=== PATIENT | male | born 1945 | race Caucasian/White ===

== ENCOUNTER 2017-02-16 20:41 | Inpatient (IN) | payer MEDICARE, SELFPAY ==
[2017-02-16 20:42] VITALS: BP 104/58; PULSE 85; RESP 18; TEMP 36.4; O2SAT 93; BMI 23.6
[2017-02-16 21:39] VITALS: O2SAT 96
[2017-02-16 22:23] VITALS: BP 103/58; BP 114/57; BP 91/47; PULSE 68; PULSE 72; PULSE 74
[2017-02-16 22:28] LABS: Absolute Lymphocyte Count 2.06 X10^3/ul (0.83-4.51); Absolute Neutrophil Count 3.4 X10^3/uL (2.0-7.7); Basophil# 0.04 X10^3/uL; Basophil% 0.6 % (0-1); Eosinophil# 0.28 X10^3/uL; Eosinophils% 4.4 % (0-5); Hematocrit 19.1 % (40-54); Lymphocyte # 2.06 X10^3/ul (4.0); Lymphocyte % 32.7 % (19-41); Mean Corp Hgb Conc 31.4 g/gl (32-36); Mean Corpuscular Volume 95.5 fL (80-94); Mean Platelet Vol. 7.4 fl (6.2-12.0); Monocyte# 0.51 X10^3/uL; Monocyte% 8.1 % (0-10); Neutrophil # 3.39 X10^3/uL (2.7-7.7); Neutrophil % 53.9 % (47-70); POSITIVE COUNT NO; POSITIVE DIFFERENTIAL NO; POSITIVE MORPHOLOGY NO; Platelet Count 314 K/mm3 (150-450); RBC Distribution Width CV 14.3 % (11.6-14.6); RBC Distribution Width SD 49.4 fl (35.1-43.9); White Blood Count 6.3 K/mm3 (4.4-11.0)
[2017-02-16 22:30] VITALS: PULSE 68; RESP 16; O2SAT 100
[2017-02-16] MEDS: Ipratropium/Albuterol Sulfate 3 ML AMPUL.NEB INHALATION (22:30)
[2017-02-16 22:35] LABS: International Normalized Ratio 1.1; Prothrombin Time (Protime)PT. 14.1 SECONDS (11.7-14.9)
[2017-02-16 22:36] LABS: Partial Thromboplast Time 37.2 Seconds (24.1-36.2)
[2017-02-16 22:40] LABS: Anion Gap 9 (5-15); BUN 17 mg/dL (7-18); BUN/Creat Ratio 12.4 RATIO (10-20); Calcium,Total 7.9 mg/dL (8.5-10.1); Chloride 102 mmol/L (98-107); Creatinine, Serum 1.37 mg/dL (0.70-1.30); EST Glomerular Filtration Rate 55 mL/min (>60); Est Glom Filt Rate - Afr Amer 66 mL/min (>60); Glucose 90 mg/dL (70-110); Potassium 3.8 mmol/L (3.5-5.1); Sodium Level 137 mmol/L (136-145)
--- NOTE | 2017-02-16 23:01 | ED.DCSUM_ITS ---
- ER Visit Summary Date of Service: 02/16/17 Chief Complaint: Anemia History of Present Illness: The patient is a [address] Kurtz and Dr. Enriquez. He was diagnosed with a PE last month and placed on Xarelto. He was seen in the office today and had blood work obtained which shows a hemoglobin of 6. Patient denies any source of bleeding. No diarrhea. No black or bloody stools. He denies any trauma. Reports that approximately a week ago he blew his nose and a blood clot came out. He had then had pink drainage for approximately 15 minutes but no further bleeding. Patient does report that he is mildly short of breath with walking around. He denies any chest pain. He has a chronic cough that is unchanged. Patient reports that he had a colonoscopy approximately [address] Hinds. He reports that he had endoscopy approximately 2 years ago. Physical Examination: Vitals: Stable. Afebrile. General: Well-nourished and well-developed. Head: Normocephalic atraumatic. Neck: Supple, no lymphadenopathy. No JVD. Nontender. Cardiovascular: Regular rate and rhythm. No murmurs. Respiratory: No respiratory distress. Mild wheezing bilaterally with good air movement. Abdominal: Soft, nontender, nondistended, normal bowel sounds. No guarding, rebound, or peritoneal signs. Rectal: Brown stool in the vault. Back: Nontender. Extremities: Nontender, no edema. Skin: Normal color, no rash. Neurologic: Alert and oriented ?3. Cranial nerves II through XII are intact. Normal strength and sensation. Psych: Normal affect. Test Results: CBC is remarkable for hemoglobin of 6 and hematocrit of 19.1. Chem-7 is marked for creatinine 1.37 and calcium 7.9. INR is 1.1. PTT is 37.2. Emergency Department Course and Treatment: Patient had positive orthostatic vital signs. He was treated with albuterol and Atrovent aerosols. He was typed and crossed for 2 units of packed red blood cells. Treatment Plan: The patient will be discussed with the hospitalist and admitted for further evaluation and treatment. Disposition: Admitted in stable condition. Impression: 1. Anemia. 2. Coagulopathy on Xarelto. 3. COPD. This note was generated with [employer] software. It may contain incorrect words, spelling, and punctuation that were not noted in review of the chart prior to signing ED Disposition - Plan for ED Patient: Chief Complaint: Abn Labs Referrals: Mitch Kurtz MD [Primary Care Provider] -
--- NOTE | 2017-02-16 23:09 | ED.RN ---
unable to confirm home medications. took list home with her for the night. requested she bring it back with her in am
[2017-02-16 23:15] VITALS: BP 116/59; PULSE 73; RESP 18; O2SAT 96
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
[2017-02-16 23:39] VITALS: BMI 23.2
[2017-02-16 23:49] VITALS: BP 122/57; PULSE 74; RESP 16; TEMP 36.6; O2SAT 98
--- NOTE | 2017-02-16 23:53 | EKG12_ITS ---
Test Reason : ANEMIA Blood Pressure : / mmHG Vent. Rate : 072 BPM Atrial Rate : 072 BPM P-R Int : 184 ms QRS Dur : 160 ms QT Int : 460 ms P-R-T Axes : 062 037 090 degrees QTc Int : 503 ms Normal sinus rhythm Left bundle branch block Abnormal ECG Confirmed by JESUS CHRISTIANSEN, BESSY ([id number]), video effects editor ES WHITE ([id number] on 03/01/2017 11:22:57 AM Referred By: KENDRICK Confirmed By:BESSY LEE MD
[2017-02-17] VITALS (20 sets, daily range): BP systolic 118–164; BP diastolic 52–90; PULSE 70–95; RESP 16–120; TEMP 36.2–37.2; O2SAT 90–98; BMI 23.2
[2017-02-17] MEDS: 0.9% NaCl Peripheral Flush Adult/Peds IV (00:15)
[2017-02-17] MEDS: Ipratropium/Albuterol Sulfate 3 ML AMPUL.NEB INHALATION (04:30)
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
[2017-02-17] MEDS: 0.9% Normal Saline 1,000 ML 100 ML IV (07:28)
[2017-02-17 08:21] LABS: Absolute Lymphocyte Count 1.69 X10^3/ul (0.83-4.51); Absolute Neutrophil Count 4.4 X10^3/uL (2.0-7.7); Basophil# 0.03 X10^3/uL; Basophil% 0.4 % (0-1); Eosinophil# 0.17 X10^3/uL; Eosinophils% 2.5 % (0-5); Hematocrit 24.2 % (40-54); Hemoglobin 7.9 g/dl (13.0-16.5); Lymphocyte # 1.69 X10^3/ul (4.0); Lymphocyte % 24.4 % (19-41); Mean Corp Hgb Conc 32.6 g/gl (32-36); Mean Corpuscular Hgb 31.6 pg (27.0-32.0); Mean Corpuscular Volume 96.8 fL (80-94); Mean Platelet Vol. 8.1 fl (6.2-12.0); Monocyte# 0.62 X10^3/uL; Neutrophil # 4.39 X10^3/uL (2.7-7.7); Neutrophil % 63.4 % (47-70); Platelet Count 386 K/mm3 (150-450); RBC Distribution Width CV 13.3 % (11.6-14.6); RBC Distribution Width SD 44.4 fl (35.1-43.9); White Blood Count 6.9 K/mm3 (4.4-11.0)
[2017-02-17 08:22] LABS: POSITIVE COUNT NO; POSITIVE DIFFERENTIAL NO; POSITIVE MORPHOLOGY NO
[2017-02-17 08:39] LABS: Anion Gap 7 (5-15); BUN 13 mg/dL (7-18); BUN/Creat Ratio 10.8 RATIO (10-20); Calcium,Total 8.2 mg/dL (8.5-10.1); Chloride 104 mmol/L (98-107); EST Glomerular Filtration Rate 64 mL/min (>60); Est Glom Filt Rate - Afr Amer 77 mL/min (>60); Estimated Creatinine Clearance 70.08 ml/min; Glucose 99 mg/dL (70-110); Potassium 3.8 mmol/L (3.5-5.1); Sodium Level 139 mmol/L (136-145)
[2017-02-17] MEDS: amLODIPine 5 MG Tablet PO (09:13)
--- NOTE | 2017-02-17 11:54 | NURSING ---
This RN called Dr. Kurtz's office and spoke with ANTHONY Huff. Requested for an updated home medication list. Notified that patient was seen in the office yesterday by Igor Strong and that all of his medications were discontinued at that time with the exception of Xarelto 20mg daily. Reviewed with Dr. Kurtz- states no reason-- and needs home meds
--- NOTE | 2017-02-17 12:27 | OP.PCM_ITS ---
Report of Operation Date of Procedure: 02/17/17 Pre-Operative Diagnosis: anemia Post-Operative Diagnosis: normal EGD, no evidence of bleeding from UGI source Surgery/Procedure Performed:: EGD Description of Surgical Findings:: normal esophagus, normal stomach, normal first and second portion of duodenum no source of GI bleeding Type of Anesthesia:: MAC Anesthesiologist: Marlo Caraballo Specimen's removed: none Estimated Blood Loss (mL): none Fluids Replaced: see anesthesia note Description of Procedure: After informed consent was given, the patient was brought to the endoscopy suite. Appropriate time out protocol was followed. He was then placed in the upright sitting position. Appropriate cardiac, blood pressure, and pulse oximetry monitoring was placed. After stable vital signs were noted, the patient was given intravenous conscious sedation. The posterior pharynx was sprayed with lidocaine spray times two and a bite block was placed. The upper endoscope was lubricated and inserted into the patient?s mouth and then carefully placed into the patient?s throat. The patient was asked to swallow and the endoscope was then easily advanced into the patient?s esophagus. The endoscope was further advanced down into the patient?s stomach, then past the pylorus, then past the duodenal bulb and then to the second portion of the duodenum. There were no lesions noted in the duodenum. The endoscope was then retracted back into the stomach. There was retained bile noted in the stomach. A retroflex view of the stomach revealed no evidence of any masses. No ulcers, no strictures, no suspicious lesions were noted. No evidence of bleeding or blood flecks noted. The endoscope was retracted into the esophagus , where any insufflated gas in the stomach was aspirated out. The gastroesophageal junction was grossly normal, patient did have a hiatal hernia. The remainder of the esophagus was normal. The upper endoscope was removed intact. Patient tolerated procedure well. - Complications none noted - Admit VTE Documentation VTE Mechan Device Prophylaxis: SCD's
--- NOTE | 2017-02-17 14:12 | PCM.DC ---
- Discharge Diagnoses Current Active Problems: Current Active and Chronic Problems Acute normocytic severe anemia (Acute) Reason(s) for Visit for Discharge Instructions: anemia (low blood count) You will use the following diet at home:: Regular, Other - resume your usual diet Discharge Activity: Return to Normal Activity, - - usual activity as tolerated Additional Instructions: You were referred to hospital for anemia ( low blood count). You received transfusions (2 units of blood). YOu had upper endoscopy which was normal and did not reveal bleeding. Please take the iron tablet daily as prescribed. Please followup with your primary care physician in 1 - 2 weeks for repeat blood work. Your physician may wish to order further tests for the anemia Allergies/Adverse Reactions: Allergies No Known Allergies Allergy (Verified 02/16/17 20:45) Medications to take at Discharge Amlodipine Besylate 5 mg PO DAILY 09/22/13 Furosemide 10 mg PO DAILY 09/22/13 Lisinopril 20 mg PO BID 09/22/13 Metoprolol Tartrate 50 mg PO DAILY 09/22/13 Albuterol IH (ProAir) [Proair Hfa] 2 puff INHALATION Q4H PRN PRN 01/04/17 Tiotropium [place] [Spiriva 18 MCG] 1 puff INHALATION DAILY 01/04/17 Iron Poly/Vit C [Niferex-150] 150 mg PO DAILYCM #30 cap 02/17/17 Nitroglycerin 0.4 mg SL DAILY 02/17/17 Omeprazole [Prilosec] 20 mg PO BID 02/17/17 Rivaroxaban [Xarelto] 20 mg PO DAILY 02/17/17 The following prescriptions were given: Iron Poly/Vit C [Niferex-150] 150 mg PO DAILYCM #30 cap Primary Care Physician: Mitch Kurtz MD [Primary Care Provider] -
--- NOTE | 2017-02-17 14:15 | PCM.DC.SUM ---
Discharge Date and Diagnosis Date of Admission: 02/16/17 Date of Discharge: 02/17/17 - Primary Discharge Diagnosis Active and Suspected Problems Acute normocytic severe anemia (Acute) - Secondary Discharge Diagnosis Chronic Problems Barretts esophagus (Chronic) History of peptic ulcer disease (Chronic) Pulmonary embolism (Chronic) On Xarelto 20 mg daily Chronic respiratory failure (Chronic) COPD (chronic obstructive pulmonary disease) (Chronic) Hypertension (Chronic) Hospital Course and Treatment Operations: None Procedures: EGD Summary of Care Provided: The patient is a 71 year old M with medical comorbidities of COPD, chronic hypoxemic respiratory failure on chronic home O2, Gamble's esophagus, and history of PE in 01/22 for which he was on Xarelto. The patient was referred to hospital from the office for evaluation of symptomatic severe normocytic anemia, hemoglobin 6. Hemoglobin was 11s -12s, normocytic. He reported prior recent diagnostic CLN with no bleeding source found. He had no GI symptoms and denied hematemesis, hematochezia, melena. There was no clinical evidence of hemolysis. He received 2 units PRBCs with improvement in hemoglobin to 7.9. He underwent EGD which was unrevealing. The patient requested prompt discharge on 02/17/17. He felt improved and felt back to baseline. He was advised to take Niferex 1 tablet daily and counselled to followup with PCP in few weeks for repeat blood work and consideration to additional diagnostic evaluations. Discharge Activity: Return to Normal Activity, - - usual activity as tolerated Home Medications: Medications to take at Discharge Amlodipine Besylate 5 mg PO DAILY 09/22/13 Furosemide 10 mg PO DAILY 09/22/13 Lisinopril 20 mg PO BID 09/22/13 Metoprolol Tartrate 50 mg PO DAILY 09/22/13 Albuterol IH (ProAir) [Proair Hfa] 2 puff INHALATION Q4H PRN PRN 01/04/17 Tiotropium [place] [Spiriva 18 MCG] 1 puff INHALATION DAILY 01/04/17 Iron Poly/Vit C [Niferex-150] 150 mg PO DAILYCM #30 cap 02/17/17 Nitroglycerin 0.4 mg SL DAILY 02/17/17 Omeprazole [Prilosec] 20 mg PO BID 02/17/17 Rivaroxaban [Xarelto] 20 mg PO DAILY 01/12/18 Following Prescrptions Were Given to Patient: Iron Poly/Vit C [Niferex-150] 150 mg PO DAILYCM #30 cap Primary Care Physician: Mitch Kurtz MD [Primary Care Provider] - Meaningful Use Info Meaningful Use Diagnoses (Choose all that apply): None applicable
--- NOTE | 2017-02-17 14:18 | CASEMGMT ---
DC PLAN: Home on dc. No needs identified @ this time. Pardeep BSN RN ACM
--- NOTE | 2017-02-17 14:27 | PCM.PN.HOSP ---
Patient Problems: Active and Suspected Problems Acute normocytic severe anemia (Acute) Subjective: Feels well after EGD. Patient is requesting prompt/early discharge. Objective: Dressed and ready for discharge; wants to get home. Vitals/I&O's: Vital Signs Temp Pulse Resp BP Pulse Ox 97.8 F 95 20 H 153/89 H 92 02/17/17 14:01 02/17/17 14:01 02/17/17 14:01 02/17/17 14:01 02/17/17 14:01 Oxygen Flow Rate 4 Oxygen Delivery Method Nasal Cannula Weight: 190 lb 11.198 oz Body Mass Index (BMI) 23.2 Orthostatic Vital Signs Start: 02/17/17 08:47 Freq: q24h Status: Active Protocol: Activity Type Activity Date Activity User E-Sign Co-Sign Detail Recorded Client Recorded Date Recorded By Document 02/17/17 08:47 VARGAS [id number] 02/17/17 08:51 VARGAS 02/17/17 08:47 Orthostatic Vitals Standing -Blood Pressure (90/60-120/80) 146/78 H -Extremity Use Right Arm -Pulse Rate (60-100) 93 Sitting -Blood Pressure (90/60-120/80) 152/87 H -Extremity Use Right Arm -Pulse Rate (60-100) 78 Lying -Blood Pressure (90/60-120/80) 146/64 H -Extremity Use Right Arm -Pulse Rate (60-100) 83 Intake and Output for Last 24 Hours 02/15/17 02/16/17 02/17/17 23:59 23:59 23:59 Intake Total 2379 / 2379 Balance 2379 / 2379 General: Oriented x3, Cooperative Oral: Moist Mucosa Neck: No JVD Lungs: Rhonchi, - - Chronic Cardiovascular: Regular rate, Regular Rhythm Laboratory Results 02/17/17 08:00: WBC 6.9, RBC 2.50 L, Hgb 7.9 L, Hct 24.2 L, MCV 96.8 H, MCH 31.6, MCHC 32.6, RDW 13.3, RDW Differential 44.4 H, Plt Count 386, MPV 8.1, Immature Gran % (Auto) 0.300, Neut % (Auto) 63.4, Lymph % (Auto) 24.4, [place] % (Auto) 9.0, Eos % (Auto) 2.5, Baso % (Auto) 0.4, Absolute Neuts (auto) 4.4, Absolute Lymphs (auto) 1.69, Total Counted Not Reportable 02/17/17 08:00: Sodium 139, Potassium 3.8, Chloride 104, Carbon Dioxide 28.0, Anion Gap 7, BUN 13, Creatinine 1.20, Estim Creat Clear Calc 70.08, Est GFR (MDRD) Af Amer 77, Est GFR (MDRD) Non-Af 64, BUN/Creatinine Ratio 10.8, Glucose 99, Calcium 8.2 L Current Medications Albuterol/Ipratropium (Duoneb) 3 ml INHALATION Q6H.RT PRN PRN Reason: Shortness of breath Last Admin: 02/17/17 04:30 Dose: 3 ml Amlodipine Besylate (Norvasc) 5 mg PO DAILY KRISTEN Last Admin: 02/17/17 09:13 Dose: 5 mg Sodium Chloride () 1,000 mls @ 100 mls/hr IV .Q10H KRISTEN Last Admin: 02/17/17 07:28 Dose: 100 mls/hr Sodium Chloride () 5 - 30 ml IV UD PRN PRN Reason: SALINE FLUSH Last Admin: 02/17/17 00:15 Dose: 10 ml Assessment/Plan Active and Suspected Problems Acute normocytic severe anemia (Acute) 71-year-old gentleman with history of COPD, chronic hypoxemic respiratory failure, history of PE (acute multiple PE on 01/04/2017) on Xarelto, is referred to the emergency department for treatment of low hemoglobin. The patient had a CBC in the office, was found hemoglobin six and referred to the ER. The patient denied any GI symptoms. A week ago he blew his nose, blood clot, and some pink drainage for about 15 minutes. He reported colonoscopy about 2 months ago which was negative, and an EGD about 2 years ago. Laboratories in the ER revealed INR 1.1, creatinine 1.37, and hemoglobin 6.0, normocytic. He denied any other symptoms to include chest pain, dyspnea, near syncope, syncope, abdominal pain, palpitation, constitutional symptoms. He received 2 units of PRBCs and transfusion with hemoglobin 7.9 and is feeling improved. Creatinine has improved to 1.2. EGD today is unrevealing. The patient is requesting prompt discharge, and since he is feeling improved, this can be arranged. He is advised to take Niferex 1 tablet daily, and to follow-up with his primary care physician in the next 1-2 weeks for repeat blood count and consideration to additional diagnostic studies.
--- NOTE | 2017-02-17 14:31 | PN_ITS ---
Patient Problems: Active and Suspected Problems Acute normocytic severe anemia (Acute) Subjective: Feels well after EGD. Patient is requesting prompt/early discharge. Objective: Dressed and ready for discharge; wants to get home. Vitals/I&O's: Vital Signs Temp Pulse Resp BP Pulse Ox 97.8 F 95 20 H 153/89 H 92 02/17/17 14:01 02/17/17 14:01 02/17/17 14:01 02/17/17 14:01 02/17/17 14:01 Oxygen Flow Rate 4 Oxygen Delivery Method Nasal Cannula Weight: 190 lb 11.198 oz Body Mass Index (BMI) 23.2 Orthostatic Vital Signs Start: 02/17/17 08:47 Freq: q24h Status: Active Protocol: Activity Type Activity Date Activity User E-Sign Co-Sign Detail Recorded Client Recorded Date Recorded By Document 02/17/17 08:47 VARGAS [id number] 02/17/17 08:51 VARGAS 02/17/17 08:47 Orthostatic Vitals Standing -Blood Pressure (90/60-120/80) 146/78 H -Extremity Use Right Arm -Pulse Rate (60-100) 93 Sitting -Blood Pressure (90/60-120/80) 152/87 H -Extremity Use Right Arm -Pulse Rate (60-100) 78 Lying -Blood Pressure (90/60-120/80) 146/64 H -Extremity Use Right Arm -Pulse Rate (60-100) 83 Intake and Output for Last 24 Hours 02/15/17 02/16/17 02/17/17 23:59 23:59 23:59 Intake Total 2379 / 2379 Balance 2379 / 2379 General: Oriented x3, Cooperative Oral: Moist Mucosa Neck: No JVD Lungs: Rhonchi, - - Chronic Cardiovascular: Regular rate, Regular Rhythm Laboratory Results 02/17/17 08:00: WBC 6.9, RBC 2.50 L, Hgb 7.9 L, Hct 24.2 L, MCV 96.8 H, MCH 31.6 , MCHC 32.6, RDW 13.3, RDW Differential 44.4 H, Plt Count 386, MPV 8.1, Immature Gran % (Auto) 0.300, Neut % (Auto) 63.4, Lymph % (Auto) 24.4, [place] % ( Auto) 9.0, Eos % (Auto) 2.5, Baso % (Auto) 0.4, Absolute Neuts (auto) 4.4, Absolute Lymphs (auto) 1.69, Total Counted Not Reportable 02/17/17 08:00: Sodium 139, Potassium 3.8, Chloride 104, Carbon Dioxide 28.0, Anion Gap 7, BUN 13, Creatinine 1.20, Estim Creat Clear Calc 70.08, Est GFR ( MDRD) Af Amer 77, Est GFR (MDRD) Non-Af 64, BUN/Creatinine Ratio 10.8, Glucose 99, Calcium 8.2 L Current Medications Albuterol/Ipratropium (Duoneb) 3 ml INHALATION Q6H.RT PRN PRN Reason: Shortness of breath Last Admin: 02/17/17 04:30 Dose: 3 ml Amlodipine Besylate (Norvasc) 5 mg PO DAILY KRISTEN Last Admin: 02/17/17 09:13 Dose: 5 mg Sodium Chloride () 1,000 mls @ 100 mls/hr IV .Q10H KRISTEN Last Admin: 02/17/17 07:28 Dose: 100 mls/hr Sodium Chloride () 5 - 30 ml IV UD PRN PRN Reason: SALINE FLUSH Last Admin: 02/17/17 00:15 Dose: 10 ml Assessment/Plan Active and Suspected Problems Acute normocytic severe anemia (Acute) 71-year-old gentleman with history of COPD, chronic hypoxemic respiratory failure, history of PE (acute multiple PE on 01/04/2017) on Xarelto, is referred to the emergency department for treatment of low hemoglobin. The patient had a CBC in the office, was found hemoglobin six and referred to the ER. The patient denied any GI symptoms. A week ago he blew his nose, blood clot, and some pink drainage for about 15 minutes. He reported colonoscopy about 2 months ago which was negative, and an EGD about 2 years ago. Laboratories in the ER revealed INR 1.1, creatinine 1.37, and hemoglobin 6.0, normocytic. He denied any other symptoms to include chest pain, dyspnea, near syncope, syncope, abdominal pain, palpitation, constitutional symptoms. He received 2 units of PRBCs and transfusion with hemoglobin 7.9 and is feeling improved. Creatinine has improved to 1.2. EGD today is unrevealing. The patient is requesting prompt discharge, and since he is feeling improved, this can be arranged. He is advised to take Niferex 1 tablet daily, and to follow-up with his primary care physician in the next 1-2 weeks for repeat blood count and consideration to additional diagnostic studies.
--- NOTE | 2017-02-17 14:41 | NURSING ---
Patient d/c'ed at this time- taken down to vehicle with 4L oxygen per home orders. States that his has oxygen in car. States he won't need to drive too far as he lives close to hospital. Denies further questions/ needs. patient educated on new iron prescription and that the doctor requested to stop his evening dose of metoprolol. patient verbalized understanding.
== END 2017-02-17 14:30 | disposition home or self-care (01) | DRG 812 ==
LOC: ED 22:40 → MS2 02-17 06:10
PROVIDERS: Surgery; Admitting Provider Internal Medicine; Emergency Provider Emergency Medicine; Family Provider Family Medicine; PCP Family Medicine; Visit Provider Internal Medicine
PROC: 0DJ08ZZ Inspection of Upper Intestinal Tract, Via Natural or Artificial Opening Endoscopic (ICD-10-PCS; CPT 43235; principal; 2017-02-17 11:55)
DX: D64.9 Anemia, unspecified (principal); J96.11 Chronic respiratory failure with hypoxia; Z99.81 Dependence on supplemental oxygen; J44.9 Chronic obstructive pulmonary disease, unspecified; F17.210 Nicotine dependence, cigarettes, uncomplicated; I10 Essential (primary) hypertension; K44.9 Diaphragmatic hernia without obstruction or gangrene; K22.70 Barrett's esophagus without dysplasia; Z86.711 Personal history of pulmonary embolism; Z87.11 Personal history of peptic ulcer disease; Z79.01 Long term (current) use of anticoagulants; Z79.899 Other long term (current) drug therapy
CPT/HCPCS: 80048; 82274; 85025; 85610; 85730; 86850; 86900; 86920; 93005; 94640; 99284; J7030; J7040; P9016; A4216

== ENCOUNTER 2017-03-03 09:44 | Observation (INO) | payer MEDICARE, SELFPAY ==
[2017-03-03] VITALS (16 sets, daily range): BP systolic 106–155; BP diastolic 59–90; PULSE 69–94; RESP 18–24; TEMP 36.3–36.7; O2SAT 88–99; BMI 23.4; BMI 23.3
[2017-03-03 10:46] LABS: Absolute Lymphocyte Count 2.07 X10^3/ul (0.83-4.51); Absolute Neutrophil Count 3.9 X10^3/uL (2.0-7.7); Basophil# 0.04 X10^3/uL; Basophil% 0.6 % (0-1); Eosinophil# 0.21 X10^3/uL; Eosinophils% 3.1 % (0-5); Hematocrit 19.7 % (40-54); Hemoglobin 6.1 g/dl (13.0-16.5); Lymphocyte # 2.07 X10^3/ul (4.0); Lymphocyte % 30.4 % (19-41); Mean Platelet Vol. 7.8 fl (6.2-12.0); Monocyte# 0.61 X10^3/uL; Monocyte% 8.9 % (0-10); Neutrophil # 3.86 X10^3/uL (2.7-7.7); Neutrophil % 56.6 % (47-70); POSITIVE COUNT NO; POSITIVE DIFFERENTIAL NO; POSITIVE MORPHOLOGY NO; Platelet Count 324 K/mm3 (150-450); RBC Distribution Width CV 16.2 % (11.6-14.6); RBC Distribution Width SD 55.9 fl (35.1-43.9); Red Blood Count 2.03 M/mm3 (4.6-6.2); White Blood Count 6.8 K/mm3 (4.4-11.0)
[2017-03-03 10:53] LABS: Prothrombin Time (Protime)PT. 29.8 SECONDS (11.7-14.9)
[2017-03-03 10:54] LABS: Partial Thromboplast Time 48.9 Seconds (24.1-36.2)
[2017-03-03] MEDS: 0.9% Normal Saline 1,000 ML 1000 ML IV (10:58)
[2017-03-03 11:00] LABS: Anion Gap 6 (5-15); BUN 23 mg/dL (7-18); BUN/Creat Ratio 16.4 RATIO (10-20); Calcium,Total 8.2 mg/dL (8.5-10.1); Chloride 103 mmol/L (98-107); EST Glomerular Filtration Rate 53 mL/min (>60); Est Glom Filt Rate - Afr Amer 64 mL/min (>60); Estimated Creatinine Clearance 60.28 ml/min; Glucose 100 mg/dL (70-110); Potassium 4.4 mmol/L (3.5-5.1); Sodium Level 138 mmol/L (136-145)
--- NOTE | 2017-03-03 11:46 | ED.DCSUM_ITS ---
- ER Visit Summary Date of Service: 03/03/17 Chief Complaint: Anemia History of Present Illness: The patient is a [address] Kurtz. Patient reports few months ago he was diagnosed with PE and placed on Xarelto. Since that time he has had problems with recurrent anemia. He had an endoscopy on February [address] Mares that was normal. A colonoscopy December [address] Hinds that was normal as well. He reports that he had labs in the office that were abnormal and he sent to the emergency department for evaluation. Patient denies any source of bleeding. No bloody noses and no trauma. He does complain of generalized weakness. He denies any chest pain or shortness of breath. Physical Examination: Vitals: Stable. Afebrile. General: Well-nourished and well-developed. Head: Normocephalic atraumatic. Neck: Supple, no lymphadenopathy. No JVD. Nontender. Cardiovascular: Regular rate and rhythm. No murmurs. Respiratory: No respiratory distress. Clear to auscultation bilaterally. Abdominal: Soft, nontender, nondistended, normal bowel sounds. No guarding, rebound, or peritoneal signs. Back: Nontender. Extremities: Nontender, no edema. Skin: Normal color, no rash. Neurologic: Alert and oriented ?3. Cranial nerves II through XII are intact. Normal strength and sensation. Psych: Normal affect. Test Results: CBC is marked for hemoglobin of 6.1. Chem-7 is marked for BUN of 23, creatinine 1.4, calcium 8.2. INR is 3.0. PTT is 48.9. Emergency Department Course and Treatment: Patient had negative metastatic vital signs. He was typed and crossed for 2 units packed red blood cells. Treatment Plan: Patient was discussed with Dr. Ch. He will be admitted to the hospital for further evaluation and treatment. Disposition: Admitted in stable condition. Impression: 1. Anemia. 2. Coagulopathy on Xarelto. This note was generated with [employer] dictation software. It may contain incorrect words, spelling, and punctuation that were not noted in review of the chart prior to signing ED Disposition - Plan for ED Patient: Chief Complaint: Abn Labs Referrals: Mitch Kurtz MD [Primary Care Provider] -
--- NOTE | 2017-03-03 11:51 | NURSING ---
MED SURG OBS ANEMIA MICHELA
--- NOTE | 2017-03-03 12:56 | VDLE_ITS ---
Reason For Study: PE RIGHT LEFT GSV is normal. GSV is normal. CFV is compressible, spontaneous, phasic, CFV is compressible, spontaneous, phasic, competent and demonstrates normal competent, and demonstrates normal augmentation. augmentation. FV is compressible, spontaneous, phasic, FV is compressible, spontaneous, phasic, competent and demonstrates normal competent and demonstrates normal augmentation. augmentation. POP V is compressible, spontaneous, phasic, POP V is compressible, spontaneous, phasic, competent and demonstrates normal competent and demonstrates normal augmentation. augmentation. T/P Trunk is compressible. T/P Trunk is compressible. PTV is compressible. PTV is compressible. RT PerV is compressible. LT PerV is compressible. Procedure Exam performed portable in patient room. The exam was diagnostic. A preliminary report was called and/or faxed to PT's RN & MS2. Interpretation Summary Deep veins of the lower extremities are bilaterally patent and compressible segmentally. There is no evidence of deep vein thrombosis on either side. Valvular competence appears intact within the proximal deep venous systems bilaterally. The greater saphenous veins appear bilaterally patent and compressible segmentally. Ordering Physician: Amilcar Ch Referring Physician: Mitch Kurtz Performed By: Zulema Elias, DINORAH, RVT
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
--- NOTE | 2017-03-03 16:42 | PCM.DC ---
- Discharge Diagnoses Current Active Problems: Current Active and Chronic Problems Anemia associated with acute blood loss (Acute) You will use the following diet at home:: No restrictions Your food should be the consistency of: Regular Your liquids should be the consistency of: Regular/Thin Discharge Activity: Return to Normal Activity Call your doctor if you observe: Fever of 101 or Higher, Shortness of breath, Chest pain, - - blood in stool. lightheadness. fainting. Allergies/Adverse Reactions: Allergies No Known Allergies Allergy (Verified 02/16/17 20:45) Medications to take at Discharge Amlodipine Besylate 5 mg PO DAILY 09/22/13 Furosemide 10 mg PO DAILY 09/22/13 Lisinopril 20 mg PO BID 09/22/13 Metoprolol Tartrate 50 mg PO DAILY 09/22/13 Albuterol IH (ProAir) [Proair Hfa] 2 puff INHALATION Q4H PRN PRN 01/04/17 Tiotropium [place] [Spiriva 18 MCG] 1 puff INHALATION DAILY 01/04/17 Nitroglycerin 0.4 mg SL DAILY 02/17/17 Omeprazole [Prilosec] 20 mg PO BID 02/17/17 Ferrous Sulfate 325 mg PO QHS 03/03/17 Primary Care Physician: Mitch Kurtz MD [Primary Care Provider] - Within 2 Weeks Proposed Discharge Date: 03/03/17
--- NOTE | 2017-03-03 16:43 | PCM.DC.SUM ---
Discharge Date and Diagnosis - Problem List Patient Problems: Active and Suspected Problems Anemia associated with acute blood loss (Acute) Date of Admission: 03/03/17 Date of Discharge: 03/03/17 - Primary Discharge Diagnosis Active and Suspected Problems Anemia associated with acute blood loss (Acute) - Secondary Discharge Diagnosis Chronic Problems Barretts esophagus (Chronic) History of peptic ulcer disease (Chronic) Pulmonary embolism (Chronic) On Xarelto 20 mg daily Chronic respiratory failure (Chronic) COPD (chronic obstructive pulmonary disease) (Chronic) Hypertension (Chronic) Hospital Course and Treatment Operations: None Procedures: None Summary of Care Provided: The patient is a 71 year old M is with abnormal labs. Patient had hemoglobin is 6.1. Patient was not having no other symptoms. Patient was admitted earlier this month for similar situation where his hemoglobin at that time was 6. Patient underwent an EGD that was normal. Patient had a colonoscopy 2 months prior which was reportedly normal. Concern is that patient may be losing his blood somewhere in between his upper and lower GI system. But this really being on Xarelto is certainly exaggerating that. I did check a duplex of his lower extremities to ensure that there are no DVTs given patient's recent diagnosis of a pulmonary emboli. The duplex was negative. I feel that the risks of anticoagulation outweigh the benefits and therefore recommend patient hold off on Xarelto until we can ensure that his hemoglobin is stable and if any additional endoscopy or capsule studies or push enteroscopy would be necessary. The patient will be discharged today but he is instructed to have his hemoglobin checked in 1 and 2 weeks. Patient instructed that if he starts getting chest pain shortness of breath fainting to come back to the emergency room or if he notes blood in his stool as well. Expressed understanding and stated that he will comply. And the fact that patient has no DVT I do not feel that an IVC filter is necessary. It was diagnosed that the patient had a provoked pulmonary emboli earlier this month due to immobility. Patient stated that he was active but nonetheless I feel that anticoagulation should be held for the time being. Patient does have an appointment with a Dr. Raygoza this coming Monday. I am unsure if that is on technical support intern or not but patient will follow up. He did receive 2 units of packed red blood cells during this admission and has tolerated that well. [] Discharge Diet: No Restrictions Discharge Activity: Return to Normal Activity Call your doctor if you observe: Fever of 101 or Higher, Shortness of breath, Chest pain, - - blood in stool. lightheadness. fainting. Home Medications: Medications to take at Discharge Amlodipine Besylate 5 mg PO DAILY 09/22/13 Furosemide 10 mg PO DAILY 09/22/13 Lisinopril 20 mg PO BID 09/22/13 Metoprolol Tartrate 50 mg PO DAILY 09/22/13 Albuterol IH (ProAir) [Proair Hfa] 2 puff INHALATION Q4H PRN PRN 01/04/17 Tiotropium [place] [Spiriva 18 MCG] 1 puff INHALATION DAILY 01/04/17 Nitroglycerin 0.4 mg SL DAILY 02/17/17 Omeprazole [Prilosec] 20 mg PO BID 02/17/17 Ferrous Sulfate 325 mg PO QHS 03/03/17 Primary Care Physician: Mitch Kurtz MD [Primary Care Provider] - Within 2 Weeks Disposition: Home Minutes spent on discharge:: 32 Patient Condition:: Good Meaningful Use Info Meaningful Use Diagnoses (Choose all that apply): None applicable Code Visit OBSV E&M: 93876 Observ/hosp same date L3 - disregard the earlier coding
--- NOTE | 2017-03-03 16:48 | DS.PCM_ITS ---
Discharge Date and Diagnosis - Problem List Patient Problems: Active and Suspected Problems Anemia associated with acute blood loss (Acute) Date of Admission: 03/03/17 Date of Discharge: 03/03/17 - Primary Discharge Diagnosis Active and Suspected Problems Anemia associated with acute blood loss (Acute) - Secondary Discharge Diagnosis Chronic Problems Barretts esophagus (Chronic) History of peptic ulcer disease (Chronic) Pulmonary embolism (Chronic) On Xarelto 20 mg daily Chronic respiratory failure (Chronic) COPD (chronic obstructive pulmonary disease) (Chronic) Hypertension (Chronic) Hospital Course and Treatment Operations: None Procedures: None Summary of Care Provided: The patient is a 71 year old M is with abnormal labs. Patient had hemoglobin is 6.1. Patient was not having no other symptoms. Patient was admitted earlier this month for similar situation where his hemoglobin at that time was 6. Patient underwent an EGD that was normal. Patient had a colonoscopy 2 months prior which was reportedly normal. Concern is that patient may be losing his blood somewhere in between his upper and lower GI system. But this really being on Xarelto is certainly exaggerating that. I did check a duplex of his lower extremities to ensure that there are no DVTs given patient's recent diagnosis of a pulmonary emboli. The duplex was negative. I feel that the risks of anticoagulation outweigh the benefits and therefore recommend patient hold off on Xarelto until we can ensure that his hemoglobin is stable and if any additional endoscopy or capsule studies or push enteroscopy would be necessary. The patient will be discharged today but he is instructed to have his hemoglobin checked in 1 and 2 weeks. Patient instructed that if he starts getting chest pain shortness of breath fainting to come back to the emergency room or if he notes blood in his stool as well. Expressed understanding and stated that he will comply. And the fact that patient has no DVT I do not feel that an IVC filter is necessary. It was diagnosed that the patient had a provoked pulmonary emboli earlier this month due to immobility. Patient stated that he was active but nonetheless I feel that anticoagulation should be held for the time being. Patient does have an appointment with a Dr. Raygoza this coming Monday. I am unsure if that is on sr. social media & mobile manager or not but patient will follow up. He did receive 2 units of packed red blood cells during this admission and has tolerated that well. [] Discharge Diet: No Restrictions Discharge Activity: Return to Normal Activity Call your doctor if you observe: Fever of 101 or Higher, Shortness of breath, Chest pain, - - blood in stool. lightheadness. fainting. Home Medications: Medications to take at Discharge Amlodipine Besylate 5 mg PO DAILY 09/22/13 Furosemide 10 mg PO DAILY 09/22/13 Lisinopril 20 mg PO BID 09/22/13 Metoprolol Tartrate 50 mg PO DAILY 09/22/13 Albuterol IH (ProAir) [Proair Hfa] 2 puff INHALATION Q4H PRN PRN 01/04/17 Tiotropium [place] [Spiriva 18 MCG] 1 puff INHALATION DAILY 01/04/17 Nitroglycerin 0.4 mg SL DAILY 02/17/17 Omeprazole [Prilosec] 20 mg PO BID 02/17/17 Ferrous Sulfate 325 mg PO QHS 03/03/17 Primary Care Physician: Mitch Kurtz MD [Primary Care Provider] - Within 2 Weeks Disposition: Home Minutes spent on discharge:: 32 Patient Condition:: Good Meaningful Use Info Meaningful Use Diagnoses (Choose all that apply): None applicable Code Visit OBSV E&M: 92235 Observ/hosp same date L3 - disregard the earlier coding
== END 2017-03-03 18:45 | disposition home or self-care (01) ==
LOC: ED 11:54 → MS2 12:17
PROVIDERS: Emergency Provider Emergency Medicine; Family Provider Family Medicine; PCP Family Medicine
DX: D62 Acute posthemorrhagic anemia (principal); K22.70 Barrett's esophagus without dysplasia; J44.9 Chronic obstructive pulmonary disease, unspecified; J96.10 Chronic respiratory failure, unspecified whether with hypoxia or hypercapnia; I10 Essential (primary) hypertension; I26.99 Other pulmonary embolism without acute cor pulmonale; F17.200 Nicotine dependence, unspecified, uncomplicated; D68.32 Hemorrhagic disorder due to extrinsic circulating anticoagulants; T45.515A Adverse effect of anticoagulants, initial encounter; Z79.01 Long term (current) use of anticoagulants; Z87.11 Personal history of peptic ulcer disease; Z79.899 Other long term (current) drug therapy; Z79.811 Long term (current) use of aromatase inhibitors
CPT/HCPCS: 80048; 85025; 85610; 85730; 86850; 86900; 86920; 93970; 97802; 99285; J7030; J7040; P9016; A4216

== ENCOUNTER → 2017-06-09 08:45 | Outpatient (CLI) | payer MEDICARE, SELFPAY ==
[2017-06-09] VITALS (8 sets, daily range): BP systolic 114–153; BP diastolic 69–85; PULSE 68–72; RESP 18–22; TEMP 36.4–36.9; O2SAT 92–94; BMI 23.6
== END ==
PROVIDERS: Family Provider Family Medicine; PCP Family Medicine; Visit Provider Internal Medicine Hematology & Oncology
DX: Z51.89 Encounter for other specified aftercare (principal); D50.0 Iron deficiency anemia secondary to blood loss (chronic)
CPT/HCPCS: 36430; 86850; 86900; 86920; 86922; J7040; P9016; A4216

== ENCOUNTER 2017-07-31 19:08 | Emergency (ER) | payer MEDICARE, SELFPAY ==
[2017-07-31 19:09] VITALS: BP 134/77; PULSE 95; RESP 20; TEMP 36.7; O2SAT 92; BMI 23.1
[2017-07-31 20:39] LABS: Bacteria 0 SEEN /hpf (None Seen); Mucous, Urine 0 SEEN /hpf (<or=2+); Red Blood Cells-Urine 0 SEEN /hpf (0-5); Squamous Epithelial Cells - UA 0 SEEN /hpf (0-5); White Blood Cells 0 SEEN /hpf (0-5)
[2017-07-31 20:45] LABS: Color, Urine Yellow (Yellow); Glucose, Dipstick Normal (Normal); Ketone-Dipstick Negative (Negative); Leukocyte Esterase-Dipstick 25 /ul (Negative); Nitrite-Dipstick Negative (Negative); Occult Blood-Urine Negative /ul (Negative); Protein-Dipstick 30 mg/dl (Negative); Specific Gravity, Urine 1.015 (1.002-1.030); Urine Bilirubin Dipstick Negative (Negative); Urine Clarity Clear (Clear); Urine Urobilinogen 4 mg/dl (Normal)
[2017-07-31 22:27] VITALS: BP 153/88; PULSE 84; RESP 16; O2SAT 96
--- NOTE | 2017-07-31 22:48 | EKG12_ITS ---
Test Reason : FLANK PAIN Blood Pressure : / mmHG Vent. Rate : 081 BPM Atrial Rate : 081 BPM P-R Int : 186 ms QRS Dur : 162 ms QT Int : 426 ms P-R-T Axes : 045 000 078 degrees QTc Int : 494 ms Normal sinus rhythm Left bundle branch block Abnormal ECG Confirmed by KAREN CHRISTIANSEN, AMBER ([id number]), script editor VAUGHN CONN ([id number] on 08/03/2017 4:28:57 PM Referred By: ALEN Confirmed By:AMBER JONES MD
--- NOTE | 2017-07-31 22:48 | CT_ITS ---
STUDY: CT ABDOMEN AND PELVIS WITHOUT CONTRAST REASON FOR EXAM: Male, 72 years old. Right-sided abdominal pain. RADIATION DOSAGE (If Supplied By Facility): CTDIvol = ( 8.67 ) mGy, DLP = ( 443.93 ) mGycm TECHNIQUE: Transaxial images were obtained from the dome of the diaphragm to the symphysis pubis without oral contrast, and without intravenous contrast. Sagittal and coronal images were reconstructed. Individualized dose optimization techniques were used for this CT. COMPARISON: November 24, 2009 FINDINGS: There are emphysematous changes at the lung bases. There are coronary artery calcifications present. Please note the lack of intravenous contrast limits evaluation of solid visceral organs. Normal liver. Normal gallbladder and extrahepatic biliary system. Normal spleen. Normal pancreas. Normal bilateral adrenal glands. There is a simple exophytic right renal cyst. There is increased to small to characterize high attenuation focus within the left kidney. There is a small hiatal hernia present. There are prominent fluid-filled loops of small bowel within the pelvis. There is a right inguinal hernia that contains a prominent afferent loop and a collapsed efferent loop. There is a segment of terminal ileum that extends into an additional right inguinal hernia as well. The appendix is visualized and appears normal. There is diffuse atherosclerotic calcification of the abdominal aorta, without a demonstrated aneurysm. Normal inferior vena cava. Normal retroperitoneum. Normal urinary bladder. There are diffuse degenerative changes of the visualized lumbar spine. CT/Abdomen/Pelvis without Cont IMPRESSION: Prominent fluid-filled loops of small bowel within the pelvis with an appearance suggestive of an underlying evolving partial small bowel obstruction secondary to a right inguinal hernia. Atherosclerosis. Hiatal hernia. Electronically Signed: Monica Trevino MD at 23:54 EDT Tel , Service support ,
--- NOTE | 2017-07-31 22:53 | ED.DCSUM_ITS ---
- ER Visit Summary Date of Service: 07/31/17 Chief Complaint: [Right flank pain.] History of Present Illness: The patient is a 72 M [who presents the emergency department with right flank pain. He states it radiates up from his posterior hip up his back on the right side. Been going on since he had a bone marrow biopsy a month ago but since Monday it has been much worse. He feels like his skin is on fire on his right flank. He has been slightly more short of breath. He has had symmetric increased lower extremity edema. He is supposed to be on home O2 but does not wear it. He is coughing up yellow sputum but states this is more of a chronic problem for him. No fevers or weakness. When he moves he gets severe pain in his flank. He can be walking and it hit some and take some down. Physical Examination: [] WN WD NAD PERRL EOMI MMM NECK supple and nontender, no masses RRR no murmur rub or gallop, no peripheral edema, symmetric radial pulses CTAB no respiratory distress no tachypnea with no accessory muscle use Exquisite tenderness to palpation in the right parathoracic musculature and shoulder blade is not reproducible with movement of the right arm ABDOMEN is soft and nontender, normal bowel sounds, no distension, no rebound or guarding Right CVA tenderness SKIN is warm and dry no rashes Alert and Oriented x3, CN II-XII in tact, no motor or sensory deficits, gait normal No lymphadenopathy Test Results: [] Emergency Department Course and Treatment: [She was given pain medicine. Chest x-ray showed no acute process. CT of the abdomen and pelvis showed multiple loops of small bowel and right inguinal hernia that was concerning for small bowel obstruction. On evaluation the persons at abdomen he was soft and nontender he had no abdominal pain he had no nausea or vomiting the right inguinal hernia was soft there is no other overlying edema or erythema and it was easily reducible. I do not think he has a small bowel obstruction. I am uncertain of the cause of the patient's right parathoracic back pain. I suspect that is likely musculoskeletal in nature however I did do a CTA of his chest to rule out PE as he has been off his Xarelto and there was no evidence of PE or pneumonia. He did have a spiculated lesion and the left upper lung. This was discussed in detail with the patient. The possibility of malignancy was discussed. Close outpatient follow-up was encouraged. He will see either Dr. Kurtz or Dr. Cedillo whom with he follows because of his blood clot and anemia. Both the patient and his were agreeable to this plan. I did encourage him to wear his oxygen at home. I will give him prednisone and pain medicine for home. He was given careful precautions for which to return and will follow up.] Treatment Plan: [] Disposition: [Discharge] Impression: [Right flank pain 2. Left lung nodule This note was generated with [employer] dictation software. It may contain incorrect words, spelling, and punctuation that were not noted in review of the chart prior to signing ED Disposition - Plan for ED Patient: Chief Complaint: Flank Pain Referrals: Mitch Kurtz MD [Primary Care Provider] -
[2017-07-31 23:08] LABS: Absolute Lymphocyte Count 1.68 X10^3/ul (0.83-4.51); Absolute Neutrophil Count 4.2 X10^3/uL (2.0-7.7); Basophil# 0.04 X10^3/uL; Basophil% 0.6 % (0-1); Eosinophil# 0.22 X10^3/uL; Hematocrit 33.8 % (40-54); Hemoglobin 11.1 g/dl (13.0-16.5); Lymphocyte # 1.68 X10^3/ul (4.0); Lymphocyte % 23.2 % (19-41); Mean Corp Hgb Conc 32.8 g/gl (32-36); Mean Corpuscular Hgb 31.7 pg (27.0-32.0); Mean Corpuscular Volume 96.6 fL (80-94); Monocyte# 1.09 X10^3/uL; Monocyte% 15.1 % (0-10); Neutrophil # 4.16 X10^3/uL (2.7-7.7); Neutrophil % 57.4 % (47-70); Platelet Count 267 K/mm3 (150-450); RBC Distribution Width CV 19.1 % (11.6-14.6); RBC Distribution Width SD 64.7 fl (35.1-43.9); White Blood Count 7.2 K/mm3 (4.4-11.0)
[2017-07-31 23:09] LABS: POSITIVE COUNT NO; POSITIVE DIFFERENTIAL NO; POSITIVE MORPHOLOGY NO
[2017-07-31 23:13] LABS: International Normalized Ratio 0.9; Prothrombin Time (Protime)PT. 11.7 SECONDS (11.7-14.9)
[2017-07-31] MEDS: Morphine 2 MG/ML Syringe IV (23:17)
[2017-07-31] MEDS: Ondansetron 4 MG/2 ML Vial IV (23:17)
--- NOTE | 2017-07-31 23:30 | RAD_ITS ---
STUDY: X-RAY CHEST REASON FOR EXAM: Male, 72 years old. Right flank pain and back pain. TECHNIQUE: PA and lateral views of the chest. COMPARISON: 01/04/2017. FINDINGS: There is hyperinflation of the lungs consistent with chronic obstructive lung disease (COPD). There are chronic changes in the right lower lung. No new infiltrate is seen. There is no demonstrated pleural abnormality. Normal size heart. Normal mediastinum and cedrick. Normal visualized pulmonary arteries. There is atherosclerotic calcification of the aortic arch with tortuosity. There is an increased kyphosis of the thoracic spine. There is decrease height and anterior wedging of several lower thoracic vertebrae. Normal visualized ribs, clavicles, and shoulders. There is no demonstrated abnormality of the visualized soft tissue structures of the upper abdomen. RAD/Chest PA and Lateral IMPRESSION: COPD changes. Chronic changes. No new infiltrate is seen. Electronically Signed: Malick Mcmillan MD at 23:57 EDT Tel , Service support ,
[2017-07-31 23:35] LABS: BNP,B-Type NATRIURETIC PEPTIDE 54.5 pg/mL (0-100)
[2017-07-31 23:40] LABS: ALB/GLOB Ratio 0.7 RATIO (0.9-2.4); AST(SGOT) 20 U/L (15-37); Alanine Aminotransfer ALT/SGPT 16 U/L (16-61); Albumin, Serum 3.2 g/dL (3.2-5.0); Alkaline Phosphatase 132 U/L (45-117); Anion Gap 8 (5-15); BUN 13 mg/dL (7-18); BUN/Creat Ratio 11.6 RATIO (10-20); Calcium,Total 7.4 mg/dL (8.5-10.1); Chloride 100 mmol/L (98-107); Creatinine, Serum 1.12 mg/dL (0.70-1.30); EST Glomerular Filtration Rate 69 mL/min (>60); Est Glom Filt Rate - Afr Amer 83 mL/min (>60); Estimated Creatinine Clearance 73.74 ml/min; Globulin 4.3 g/dL (2.2-4.2); Glucose 97 mg/dL (74-106); Lipase 98 U/L (73-393); Potassium 4.1 mmol/L (3.5-5.1); Protein, Total 7.5 g/dL (6.4-8.2); Sodium Level 138 mmol/L (136-145)
--- NOTE | 2017-08-01 00:08 | CT_ITS ---
STUDY: CTA CHEST REASON FOR EXAM: Male, 72 years old. Right flank pain. Bilateral feet edema. RADIATION DOSAGE (If Supplied By Facility): CTDIvol = ( 15.15 ) mGy, DLP = ( 534.64 ) mGycm TECHNIQUE: The examination was performed with the intravenous administration of 75ML ml of Isovue 370 contrast material. Post-processing of the angiographic images was performed, with multiplanar reformation and 3D reconstruction. Individualized dose optimization techniques were used for this CT. COMPARISON: None. FINDINGS: Normal enhancement of the main pulmonary artery and right and left pulmonary arteries. Normal enhancement of the bilateral peripheral pulmonary arteries. There is no demonstrated pulmonary embolism. There is atherosclerotic tortuosity of the aortic arch and descending thoracic aorta. There is no demonstrated aortic dissection. Normal heart and pericardium. There are few small borderline in size mediastinal nodes in the aortopulmonic window and subcarinal region. There are few right hilar nodes. Normal visualized trachea and bronchi. The lungs are well expanded. The lungs are emphysematous. There is a small spiculated lesion in the left lung apex measuring about 2.3 cm there is seen on axial image 214 series 2. Tumor cannot be excluded. There is diffuse increased markings with honeycomb pattern in the right lower lobe consistent with focal pulmonary fibrosis. There are no pleural effusions. Normal chest wall structures. There is increased kyphosis of the thoracic spine. There is decrease height of lower thoracic vertebrae. There is demineralization of the osseous structures. The visualized portions of the upper abdomen demonstrate mild stranding around the visualized upper pole of the kidneys worse on the left side. There is moderate size hiatal hernia. CT/CTA Chest W/WO Contrast IMPRESSION: No evidence of pulmonary embolism. Small spiculated lesion in the left lung apex. Tumor cannot be excluded. COPD and emphysematous changes. Focal fibrotic changes in the right lower lobe. Few mediastinal and right hilar nodes. Electronically Signed: Malick Mcmillan MD at 1:23 EDT Tel , Service support ,
[2017-08-01 01:16] VITALS: BP 139/78; PULSE 85; RESP 20
[2017-08-01] MEDS: Morphine 4 MG/ML Syringe IV (01:20)
--- NOTE | 2017-08-01 01:42 | ED.DEP ---
ED Disposition - Plan for ED Patient: Chief Complaint: Flank Pain Instructions: ED Flank Pain Uncertain Cause, ED Nodule Solitary Pulmonary Prescriptions: Oxycodone HCl/Acetaminophen [Percocet 5/325] 1 tablet PO Q6H PRN PRN 3 Days #12 tablet PRN Reason: Pain Prednisone [Deltasone] 40 mg PO DAILY 8 Days tablet Referrals: Mitch Kurtz MD [Primary Care Provider] - 2 Days Junior Cedillo DO [STAFF PHYSICIAN] -
[2017-08-01] MEDS: predniSONE 20 MG Tablet 40 MG PO (01:56)
[2017-08-01 02:07] VITALS: BP 139/78; PULSE 87; RESP 25; O2SAT 93
== END 2017-08-01 02:07 | disposition home or self-care (01) ==
LOC: ED 22:53
PROVIDERS: Emergency Provider Emergency Medicine; Family Provider Family Medicine; PCP Family Medicine
DX: M54.6 Pain in thoracic spine (principal); R10.9 Unspecified abdominal pain; R91.1 Solitary pulmonary nodule; R60.0 Localized edema; R06.00 Dyspnea, unspecified; Z91.19 Patient's noncompliance with other medical treatment and regimen; K40.90 Unilateral inguinal hernia, without obstruction or gangrene, not specified as recurrent; I44.7 Left bundle-branch block, unspecified; J44.9 Chronic obstructive pulmonary disease, unspecified; I10 Essential (primary) hypertension; Z86.39 Personal history of other endocrine, nutritional and metabolic disease; Z79.899 Other long term (current) drug therapy; Z72.0 Tobacco use
CPT/HCPCS: 71046; 71275; 74176; 80053; 81001; 83690; 83880; 84484; 85025; 85610; 93005; 96374; 96375; 96376; 99284; Q9967; A4216; J2405

== ENCOUNTER 2017-08-07 23:23 | Inpatient (IN) | payer MEDICARE, SELFPAY ==
[2017-08-07 23:23] VITALS: BP 166/113; PULSE 145; RESP 45; TEMP 36.6; O2SAT 73; BMI 26.2
--- NOTE | 2017-08-07 23:26 | ED.RN ---
CALLED FOR BIPAP, AND EKG, PULLED OLD EKG'S FOR
[2017-08-07 23:33] VITALS: PULSE 126; RESP 12; RESP 33; O2SAT 99
--- NOTE | 2017-08-07 23:33 | RAD_ITS ---
STUDY: X-RAY CHEST REASON FOR EXAM: Male, 72 years old. Severe shortness of breath TECHNIQUE: Single AP portable view of the chest. COMPARISON: 07/31/2017. CT chest 08/01/2017. 12/2610/26/2016 FINDINGS: There are superimposed monitor leads. There is hyperinflation of the lungs consistent with chronic obstructive lung disease (COPD). There is increase of interstitial opacification in the right base since previous examination. Stable mild opacification along the left cardiac contour. Small enlarging spiculated mass in the left apex and distortion of parenchyma posterior right apex on CT are not visualized on plain films. Scarring and volume loss in the right base. Stable blunting of the right costophrenic angle. Normal size heart. Normal mediastinum and cedrick. Normal visualized pulmonary arteries. There is atherosclerotic calcification of the aortic arch with tortuosity. There is demineralization of the osseous structures. Normal visualized ribs, clavicles, and shoulders. There is no demonstrated abnormality of the visualized soft tissue structures of the upper abdomen. RAD/Chest 1 View (Portable) IMPRESSION: Worsening of aeration with increase of opacification in the right base, possible superimposed inflammation/pneumonia on moderate COPD/emphysema. Enlarging spiculated masses left and right apex on CT are not appreciated on plain films. Electronically Signed: Marianne Verma MD at 0:11 EDT , Service support ,
--- NOTE | 2017-08-07 23:33 | EKG12_ITS ---
Test Reason : Blood Pressure : / mmHG Vent. Rate : 129 BPM Atrial Rate : 129 BPM P-R Int : 130 ms QRS Dur : 130 ms QT Int : 328 ms P-R-T Axes : 026 046 088 degrees QTc Int : 480 ms Sinus tachycardia Left bundle branch block Abnormal ECG Confirmed by AMBER JONES MD ([id number]), avid editor ES WHITE ([id number]) on 08/10/2017 2:02:18 PM Referred By: Confirmed By:AMBER JONES MD
[2017-08-07] MEDS: Aspirin 81 MG TAB.CHEW 324 MG PO (23:38)
[2017-08-07] MEDS: MethylPREDNISolone 125 MG/2 ML Vial IV (23:41)
--- NOTE | 2017-08-07 23:41 | ED.VISSUMM ---
- ER Visit Summary Date of Service: 08/07/17 Chief Complaint: Severe shortness of breath History of Present Illness: The patient is a 72 M history of COPD. Recent hospitalization for pulmonary embolus and is received recent blood transfusions. Patient is on home oxygen around 2 L. States has been short of breath for weeks. It has gotten worse in the last several days. He denies chest pain, fever or hemoptysis. He denies fever. States he has a cough but has been nonproductive. He still does smoke. Physical Examination: Older male respiratory distress. Vital signs blood pressure 166/113. He is afebrile. His pulse ox is 73% on a nonrebreather mask he is significantly hypoxic. HEENT exam right eye is been removed. Left unremarkable. Moist mucous membranes. Neck nontender no lymphadenopathy. No JVD. Lungs coarse breath sounds. Diminished in the bases. Prolonged expiratory phase. Respiratory distress. Heart tachycardic rate 140s. Appears to be a wide complex tachycardia on the rhythm strip. Abdomen is soft and nontender. Nondistended normal bowel sounds. Moving all 4 extremities. Ankle edema equal symmetrical bilaterally. Calves nontender. No cords. Neurologically is awake and alert with no focal motor deficits. Moving all 4 extremities. Test Results: Sinus tachycardia rate of 129 with a left bundle branch block. Unchanged from prior EKG from July. Chest x-ray shows chronic changes and either a right lower lobe infiltrate versus chronic scarring and atelectasis. CBC shows a white count of 10 and a normal H&H. Electrolytes are unremarkable with a BUN of 16 and a creatinine of 1. A normal anion gap. Troponin is normal. D-dimer is elevated 2.17. For that reason a CTA of the chest will be obtained. Patient's blood gases a pH 7.41 with a PCO2 of 42 and a PO2 of 67. Consistent with significant hypoxia on 100% oxygen but no respiratory acidosis at this time. CTA of the chest shows no PE. No dissection. Appears to have a right lower lobe and possibly right middle lobe pneumonia. The pneumonia would be considered healthcare acquired. So he will will be started on IV Zosyn and vancomycin. Emergency Department Course and Treatment: Patient will undergo cardiac workup along with respiratory therapies including IV Solu-Medrol and multiple aerosols. Treatment Plan: Multiple repeat exams patient is currently doing a lot better on BiPAP at 00:55 AM. Disposition: Admission Impression: Acute respiratory failure with hypoxia Acute COPD flare Acute right lower lobe and middle lobe healthcare acquired pneumonia History of prior PE Critical care time 35 minutes This note was generated with [employer] dictation software. It may contain incorrect words, spelling, and punctuation that were not noted in review of the chart prior to signing ED Disposition - Plan for ED Patient: Chief Complaint: Shortness of Breath
[2017-08-07 23:46] VITALS: O2SAT 94
[2017-08-07 23:48] VITALS: O2SAT 94
[2017-08-07] MEDS: Ipratropium/Albuterol Sulfate 3 ML AMPUL.NEB INHALATION (23:49)
[2017-08-07] MEDS: Albuterol 2.5 MG/3 ML VIAL.NEB. INHALATION (23:49)
[2017-08-07 23:58] VITALS: BP 130/96; PULSE 128; RESP 33; O2SAT 96
[2017-08-08] VITALS (44 sets, daily range): BP systolic 105–153; BP diastolic 65–93; PULSE 81–121; RESP 10–34; TEMP 36.4–36.8; O2SAT 87–99; BMI 23.6
[2017-08-08 00:01] LABS: Allen Test POS; Base Excess 4 mmol/L (-2 to +2); Bicarbonate 28.6 mmol/L (22-26); Blood Gas Specimen Type ART; EPAP 8; FI02 100; IPAP 18; PO2 67 mmHG (75-100); RR 12; SITE R Radial; SO2 93 % (95-99); Time Given 2350; Total Carbon Dioxide 30 mmol/L; pCO2 44.6 mmHg (35-45); pH 7.42 (7.35-7.45)
[2017-08-08] MEDS: LORazepam 2 MG/ML Syringe 1 MG IV (00:06)
[2017-08-08] MEDS: Albuterol 2.5 MG/3 ML VIAL.NEB. INHALATION ×2 (00:25→00:26)
[2017-08-08 00:27] LABS: Anion Gap 8 (5-15); BUN 16 mg/dL (7-18); BUN/Creat Ratio 12.9 RATIO (10-20); Calcium,Total 8.9 mg/dL (8.5-10.1); Chloride 96 mmol/L (98-107); Creatinine, Serum 1.24 mg/dL (0.70-1.30); EST Glomerular Filtration Rate 61 mL/min (>60); Est Glom Filt Rate - Afr Amer 74 mL/min (>60); Estimated Creatinine Clearance 59.97 ml/min; Glucose 107 mg/dL (74-106); International Normalized Ratio 0.8; Potassium 4.7 mmol/L (3.5-5.1); Prothrombin Time (Protime)PT. 11.4 SECONDS (11.7-14.9); Sodium Level 136 mmol/L (136-145)
[2017-08-08 00:33] LABS: D-Dimer Quantitative (DVT/PE) 2.17 FEU/ug/m (0.27-0.49)
--- NOTE | 2017-08-08 00:33 | ED.RN ---
LAB CALLED CRITICAL LAB ON PT, D DIMER OF 2.17, DR ROBLES NOTIFIED
[2017-08-08 00:34] LABS: Hematocrit 39.9 % (40-54); Hemoglobin 13.2 g/dl (13.0-16.5); Mean Corpuscular Volume 97.6 fL (80-94); Red Blood Count 4.09 M/mm3 (4.6-6.2); White Blood Count 10.7 K/mm3 (4.4-11.0)
[2017-08-08 00:35] LABS: Absolute Lymphocyte Count 1.32 X10^3/ul (0.83-4.51); Absolute Neutrophil Count 8.6 X10^3/uL (2.0-7.7); Basophil% 0.1 % (0-1); Differential Indicated SCAN CRITERIA MET; Eosinophils% 0.2 % (0-5); Lymphocyte # 1.32 X10^3/ul (4.0); Lymphocyte % 12.3 % (19-41); Mean Corp Hgb Conc 33.1 g/gl (32-36); Mean Corpuscular Hgb 32.3 pg (27.0-32.0); Mean Platelet Vol. 8.5 fl (6.2-12.0); Monocyte# 0.69 X10^3/uL; Monocyte% 6.4 % (0-10); Neutrophil # 8.61 X10^3/uL (2.7-7.7); Neutrophil % 80.5 % (47-70); POSITIVE COUNT NO; POSITIVE DIFFERENTIAL NO; POSITIVE MORPHOLOGY YES; Platelet Count 376 K/mm3 (150-450); RBC Distribution Width CV 19.2 % (11.6-14.6); RBC Distribution Width SD 67.5 fl (35.1-43.9)
[2017-08-08 00:36] LABS: Basophil# 0.01 X10^3/uL; Eosinophil# 0.02 X10^3/uL
[2017-08-08 00:37] LABS: Anisocytosis 1+; Hypochromasia RARE; Macrocytosis RARE; Platelet Estimate ADEQUATE (ADEQ)
--- NOTE | 2017-08-08 00:53 | CT_ITS ---
STUDY: CTA CHEST REASON FOR EXAM: Male, 72 years old. Severe shortness of breath, elevated blood pressure, elevated d-dimer, respiratory failure, question right lower lobe pneumonia. History of COPD, hypertension, PE. RADIATION DOSAGE (If Supplied By Facility): CTDIvol = ( 14.93 ) mGy, DLP = ( 795.14 ) mGycm TECHNIQUE: The examination was performed with the intravenous administration of 100 ml of Isovue 370 contrast material. Post-processing of the angiographic images was performed, with multiplanar reformation and 3D reconstruction. Individualized dose optimization techniques were used for this CT. COMPARISON: Chest x-ray 08/07/2017, 07/31/2017. CT chest 08/01/2017. 01/04/2017. FINDINGS: Normal enhancement of the main pulmonary artery and right and left pulmonary arteries. Normal enhancement of the bilateral peripheral pulmonary arteries. There is no demonstrated pulmonary embolism. There is atherosclerotic tortuosity of the aortic arch and descending thoracic aorta. There is arteriosclerosis of the greater branches. There is no demonstrated aortic dissection. Normal heart and pericardium. There are calcifications of the coronary arteries. There are multiple small lymph nodes, which are normal in size and morphology most compatible with reactive lymph hyperplasia. Right hilar lymph node 1.3 cm. Normal visualized trachea. The lungs are hyper expanded, with flattening of the hemidiaphragms. There is moderate to severe bilateral symmetric emphysema. There is distortion with spiculation of the superior right upper lobe measuring 0.5 x 1.6 cm image 237 series 2, previously 0.6 x 1.7 and 0.6 x 1.4 cm respectively on previous CT. There is a soft tissue mass with spiculation and distortion of parenchyma in the medial left upper lobe measuring 1 x 1.5 cm image 237 series 2, previously 1.3 x 1.7 and 1.3 x 0.9 cm respectively. There is new airspace disease in the right middle lobe and right lower lobe as seen on current chest x-ray suggestive of pneumonia. There is bronchial opacification in the posterior medial right lower lobe. Normal pleura. Normal chest wall structures. There are degenerative changes of thoracic spine and bilateral shoulder joints, osteopenia, multilevel loss of vertebral body height involving the T7, T8, T8-9, T10 vertebral body as seen on previous exam. Lobular liver contour, thickening of the distal esophagus, small hiatal hernia, right exophytic mid renal cyst of 2.8 x 2.1 cm, subcentimeter posterior left upper renal pole cyst, bilateral perirenal stranding, nodularity left adrenal gland. CT/CTA Chest W/WO Contrast IMPRESSION: No demonstrated pulmonary embolism, aneurysm, leak or arterial dissection. New airspace disease in the right middle and right lower lobe likely pneumonia, possible aspiration. Distortion of airspace in the apices left greater than right appears decreased in size compared to the most recent examination, however still increased in size since 12/2016. The lesions remain indeterminate. Short-term interval follow-up examination or PET scan is advised. Arterial sclerosis, degenerative changes, osteoporosis, multilevel compression fractures, coronary artery disease, emphysema and upper abdominal findings appear stable. Electronically Signed: Marianne Verma MD at 1:54 EDT , Service support ,
[2017-08-08 00:54] LABS: BNP,B-Type NATRIURETIC PEPTIDE 138.5 pg/mL (0-100)
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
[2017-08-08] MEDS: levoFLOXacin IV 500 MG/100 ML BAG 100 MG IV (03:51)
[2017-08-08] MEDS: 0.9% NaCl IVPB Med Flush (250 mL) 15 ML IV (03:53)
[2017-08-08 03:58] LABS: Probe Check PASS
[2017-08-08 04:01] LABS: M R Staph aureus DNA By PCR POSITIVE (Negative)
[2017-08-08 04:42] LABS: Absolute Lymphocyte Count 0.38 X10^3/ul (0.83-4.51); Absolute Neutrophil Count 9.6 X10^3/uL (2.0-7.7); Hematocrit 30.8 % (40-54); Hemoglobin 10.1 g/dl (13.0-16.5); Lymphocyte # 0.38 X10^3/ul (4.0); Lymphocyte % 3.5 % (19-41); Mean Corp Hgb Conc 32.8 g/gl (32-36); Mean Corpuscular Hgb 31.9 pg (27.0-32.0); Mean Corpuscular Volume 97.2 fL (80-94); Mean Platelet Vol. 8.3 fl (6.2-12.0); Monocyte# 1.01 X10^3/uL; Monocyte% 9.2 % (0-10); Neutrophil # 9.57 X10^3/uL (2.7-7.7); Neutrophil % 87.2 % (47-70); Platelet Count 268 K/mm3 (150-450); RBC Distribution Width CV 19.2 % (11.6-14.6); RBC Distribution Width SD 68.6 fl (35.1-43.9); Red Blood Count 3.17 M/mm3 (4.6-6.2)
[2017-08-08 04:54] LABS: ALB/GLOB Ratio 0.7 RATIO (0.9-2.4); AST(SGOT) 16 U/L (15-37); Alanine Aminotransfer ALT/SGPT 17 U/L (16-61); Albumin, Serum 2.8 g/dL (3.2-5.0); Alkaline Phosphatase 97 U/L (45-117); Anion Gap 6 (5-15); BUN 17 mg/dL (7-18); BUN/Creat Ratio 13.1 RATIO (10-20); Calcium,Total 7.8 mg/dL (8.5-10.1); Chloride 99 mmol/L (98-107); EST Glomerular Filtration Rate 58 mL/min (>60); Est Glom Filt Rate - Afr Amer 70 mL/min (>60); Estimated Creatinine Clearance 63.99 ml/min; Globulin 3.8 g/dL (2.2-4.2); Glucose 136 mg/dL (74-106); Protein, Total 6.6 g/dL (6.4-8.2); Sodium Level 137 mmol/L (136-145)
[2017-08-08 05:00] LABS: Differential Indicated SCAN CRITERIA MET; POSITIVE COUNT NO; POSITIVE DIFFERENTIAL YES; POSITIVE MORPHOLOGY YES
[2017-08-08 05:17] LABS: Anisocytosis 1+; Macrocytosis 1+; Platelet Estimate ADEQUATE (ADEQ)
[2017-08-08] MEDS: Ipratropium/Albuterol Sulfate 3 ML AMPUL.NEB INHALATION ×5 (07:03→23:36)
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
--- NOTE | 2017-08-08 07:55 | CCHN_ITS ---
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 Seen and examined. H&P, labs, vitals and imaging reviewed. nuclear monitoring technician shows sinus rhythm. In summary, patient is a chronic hypoxic respiratory failure with COPD on 2 L of home oxygen was admitted with progressively worsening of shortness of breath over 1 week to the extent of dyspnea at rest on the day of admission. Pulse ox was 73% on nonrebreather with increased work of breathing. Patient denies fever or chills or chest pain. Vitals heart rate in 90s, regular blood pressure 114/74, tachypneic, respiratory rate 23-27/min on BiPAP at 70% FiO2 Labs shows WBC 11,000, ABG 7.42/44/67 at 100% FiO2 in ER at 18/8. MRSA nasal screen positive Patient had echo done in December 2016 which showed EF 55% to stage I diastolic dysfunction, trivial TR with RVSP 49 mmHg suggestive of moderate pulmonary hypertension. Mild diffuse aortic wall thickening with no aortic stenosis. On exam: Currently on BiPAP, air entry severely diminished bilaterally. Expiratory rhonchi present. Heart S1-S2 regular. Abdomen benign, extremities: No pedal edema. Neuro: No focal neurological deficit. Assessment and plan 1. Acute on chronic hypoxic respiratory failure, most probably from COPD exacerbation, multifocal pneumonia possible aspiration pneumonia: CT chest reviewed. Airspace consolidation in the right middle lobe and right lower lobe that raises concern for aspiration pneumonia. Patient also has severe emphysematous changes with diffuse involvement of all lobes. There is also reported spiculation of superior right upper lobe and soft tissue mass with the spiculation and distortion of medial left upper lobe. 2. Complicated multifocal multilobar right middle lobe and right lower lobe aspiration pneumonia: Patient will need a speech evaluation after his respiratory status gets better and off BiPAP. Patient is on broad-spectrum IV antibiotic vancomycin and Zosyn. MRSA nasal screen is positive. Respiratory panel is pending. No fever. 3. Multiple small distorted and a spiculated mass in the superior right upper lobe measuring 0.5 x 1.6 cm and 0.6 x 1.4 cm and soft tissue mass with spiculation and distortion of parenchyma in the medial left upper lobe measuring 1 x 1.5 cm. Currently on noninvasive pressure ventilation. Clinical Impression(s) from Imaging Studies Chest X-Ray 08/07/17 23:33 IMPRESSION: Worsening of aeration with increase of opacification in the right base, possible superimposed inflammation/pneumonia on moderate COPD/emphysema. Enlarging spiculated masses left and right apex on CT are not appreciated on plain films. Chest CTA 08/08/17 00:53 IMPRESSION: No demonstrated pulmonary embolism, aneurysm, leak or arterial dissection. New airspace disease in the right middle and right lower lobe likely pneumonia, possible aspiration. Distortion of airspace in the apices left greater than right appears decreased in size compared to the most recent examination, however still increased in size since 12/2016. The lesions remain indeterminate. Short-term interval follow-up examination or PET scan is advised. Arterial sclerosis, degenerative changes, osteoporosis, multilevel compression fractures, coronary artery disease, emphysema and upper abdominal findings appear stable. Laboratory Results 08/07/17 23:25: WBC 10.7, RBC 4.09 L, Hgb 13.2, Hct 39.9 L, MCV 97.6 H, MCH 32.3 H, MCHC 33.1, RDW 19.2 H, RDW Differential 67.5 H, Plt Count 376, MPV 8.5, Immature Gran % (Auto) 0.500, Neut % (Auto) 80.5 H, Lymph % (Auto) 12.3 L, [place] % (Auto) 6.4, Eos % (Auto) 0.2, Baso % (Auto) 0.1, Absolute Neuts (auto) 8.6 H, Absolute Lymphs (auto) 1.32, Total Counted Not Reportable, Platelet Estimate ADEQUATE, Hypochromasia RARE, Anisocytosis 1+, Macrocytosis RARE 08/07/17 23:25: PT 11.4 L, INR 0.8, D-Dimer Quant (PE/DVT) 2.17 H* 08/07/17 23:25: Sodium 136, Potassium 4.7, Chloride 96 L, Carbon Dioxide 32.0, Anion Gap 8, BUN 16, Creatinine 1.24, Estim Creat Clear Calc 59.97, Est GFR ( MDRD) Af Amer 74, Est GFR (MDRD) Non-Af 61, BUN/Creatinine Ratio 12.9, Glucose 107 H, Calcium 8.9, Troponin I < 0.015 08/07/17 23:25: B-Natriuretic Peptide 138.5 H 08/07/17 23:54: Specimen Type ART, Sample Site R Radial, pH 7.42, Bicarbonate Actual 28.6 H, POC Total CO2 30, Base Excess 4 H, O2 Saturation 93 L, O2 % 100, ABG pCO2 44.6, ABG pO2 67 L, Eugene Test POS, Respiration Rate 12, O2 Delivery Device Bi / C PAP, EPAP 8, IPAP 18, Blood Gas Notified Whom ED MD Blood Gas Notified Time 2350 08/08/17 02:30: MRSA (PCR) POSITIVE H 08/08/17 04:10: WBC 11.0, RBC 3.17 L, Hgb 10.1 L, Hct 30.8 L, MCV 97.2 H, MCH 31.9, MCHC 32.8, RDW 19.2 H, RDW Differential 68.6 H, Plt Count 268, MPV 8.3, Immature Gran % (Auto) 0.100, Neut % (Auto) 87.2 H, Lymph % (Auto) 3.5 L, [place] % (Auto) 9.2, Eos % (Auto) 0.0, Baso % (Auto) 0.0, Absolute Neuts (auto) 9.6 H, Absolute Lymphs (auto) 0.38 L, Total Counted Not Reportable, Differential Comment SEE COMMENT, Platelet Estimate ADEQUATE, Anisocytosis 1+, Macrocytosis 1 + 08/08/17 04:10: Sodium 137, Potassium 4.0, Chloride 99, Carbon Dioxide 32.0, Anion Gap 6, BUN 17, Creatinine 1.30, Estim Creat Clear Calc 63.99, Est GFR ( MDRD) Af Amer 70, Est GFR (MDRD) Non-Af 58 L, BUN/Creatinine Ratio 13.1, Glucose 136 H, Calcium 7.8 L, Total Bilirubin 0.70, AST 16, ALT 17, Alkaline Phosphatase 97, Total Protein 6.6, Albumin 2.8 L, Globulin 3.8, Albumin/ Globulin Ratio 0.7 L 08/08/17 04:10: Troponin I 0.025 08/08/17 06:40: Troponin I 0.026
--- NOTE | 2017-08-08 09:40 | CASEMGMT ---
See [facility] assessment link. DC Plan: undetermined -Pt was independent @ home with ambulation, bathing ( assisted @ times). -Home O2 continuous with portability, CPAP, though [facility]. -Pt does not have property clerk per . [facility] called to Dr. Bartlett's office- pt has not been seen there. is agreeable to see Dr. Patiño/Boogie on dc- they are both [employer] with Rolf Barraza per Website using JRI designation. -Per interdisciplinary rounding- no PT/OT today due to respiratory status. Pardeep AZEVEDON RN ACM
[2017-08-08] MEDS: 0.9% NaCl Peripheral Flush Adult/Peds IV ×2 (10:02→13:52)
[2017-08-08] MEDS: Enoxaparin 40 MG/0.4 ML Syringe SC (10:02)
--- NOTE | 2017-08-08 10:37 | PCM.RX.CS ---
Consult Pharmacy has been consulted to manage selected antiobiotic: Vancomycin Type of Consult: New start Suspected Infection: Pneumonia Labs: Sodium 137 mmol/L (136-145) 08/08/17 04:10 Potassium 4.0 mmol/L (3.5-5.1) 08/08/17 04:10 Chloride 99 mmol/L (98-107) 08/08/17 04:10 Carbon Dioxide 32.0 mmol/L (21.0-32.0) 08/08/17 04:10 Anion Gap 6 (5-15) 08/08/17 04:10 BUN 17 mg/dL (7-18) 08/08/17 04:10 Creatinine 1.30 mg/dL (0.70-1.30) 08/08/17 04:10 Est GFR (MDRD) Af Amer 70 mL/min (>60) 08/08/17 04:10 Est GFR (MDRD) Non-Af 58 mL/min (>60) L 08/08/17 04:10 BUN/Creatinine Ratio 13.1 RATIO (10-20) 08/08/17 04:10 Glucose 136 mg/dL (74-106) H 08/08/17 04:10 Weight used for dosin kg Estimated Creatinine Clearance: 64 mL/min Goal Trough: 15-20 mcg/mL Pharmacy Plan for Drug Dosinmg IV load, vancomycin 1000mg IV q12h. Check trough prior to 4th dose. Pharmacy Service will continue to monitor and adjust dosing as required. Follow-Up Labs: Trough Vancomycin - 08/10/17 @ 1000
[2017-08-08] MEDS: Metoprolol Tartrate 5 MG/5 ML Vial 2.5 MG IV ×2 (13:51→21:08)
[2017-08-08] MEDS: Piperacil/Tazobactam 3.375 GM/50 ML ML IV ×2 (13:52→21:08)
--- NOTE | 2017-08-08 18:28 | NURSING ---
reviewed D Tonny RN charting and agree with assessment findings
[2017-08-09] VITALS (40 sets, daily range): BP systolic 112–150; BP diastolic 71–108; PULSE 94–128; RESP 10–30; TEMP 36.7–37.3; O2SAT 83–98
[2017-08-09 05:00] LABS: Absolute Lymphocyte Count 0.31 X10^3/ul (0.83-4.51); Absolute Neutrophil Count 8.9 X10^3/uL (2.0-7.7); Hematocrit 33.4 % (40-54); Hemoglobin 11.1 g/dl (13.0-16.5); Lymphocyte # 0.31 X10^3/ul (4.0); Lymphocyte % 3.1 % (19-41); Mean Corp Hgb Conc 33.2 g/gl (32-36); Mean Corpuscular Hgb 32.1 pg (27.0-32.0); Mean Corpuscular Volume 96.5 fL (80-94); Mean Platelet Vol. 8.6 fl (6.2-12.0); Monocyte# 0.87 X10^3/uL; Monocyte% 8.6 % (0-10); Neutrophil % 87.6 % (47-70); Platelet Count 297 K/mm3 (150-450); RBC Distribution Width CV 19.2 % (11.6-14.6); RBC Distribution Width SD 65.2 fl (35.1-43.9); Red Blood Count 3.46 M/mm3 (4.6-6.2); White Blood Count 10.2 K/mm3 (4.4-11.0)
[2017-08-09 05:01] LABS: Differential Indicated SCAN CRITERIA MET; POSITIVE COUNT NO; POSITIVE DIFFERENTIAL YES; POSITIVE MORPHOLOGY YES
[2017-08-09 05:15] LABS: Anion Gap 9 (5-15); BUN 17 mg/dL (7-18); Calcium,Total 8.6 mg/dL (8.5-10.1); Chloride 102 mmol/L (98-107); Creatinine, Serum 1.13 mg/dL (0.70-1.30); EST Glomerular Filtration Rate 68 mL/min (>60); Est Glom Filt Rate - Afr Amer 82 mL/min (>60); Estimated Creatinine Clearance 73.61 ml/min; Glucose 135 mg/dL (74-106); Potassium 3.9 mmol/L (3.5-5.1); Sodium Level 141 mmol/L (136-145)
[2017-08-09] MEDS: Metoprolol Tartrate 5 MG/5 ML Vial 2.5 MG IV ×3 (05:25→21:10)
[2017-08-09] MEDS: 0.9% NaCl Peripheral Flush Adult/Peds IV ×3 (05:25→21:11)
[2017-08-09] MEDS: Piperacil/Tazobactam 3.375 GM/50 ML ML IV ×3 (05:25→22:25)
--- NOTE | 2017-08-09 05:35 | CPS ---
Patient refused to wear his Bipap. Patient stated that he doesn't sleep well with it on. RN aware, informed to call staff if patient changes his mind.
[2017-08-09] MEDS: Ipratropium/Albuterol Sulfate 3 ML AMPUL.NEB INHALATION ×5 (06:35→22:35)
--- NOTE | 2017-08-09 06:40 | PCM.PN.INT ---
Subjective: The patient was seen and examined at the bedside this morning. Events from the last 24 hours have been reviewed. The patient is currently afebrile, hemodynamically stable and maintaining appropriate oxygen saturations on a 50% Ventimask. The patient was transitioned from continuous BiPAP to Ventimask early last evening. Despite being on a considerable amount of supplemental oxygen, the patient does report subjective improvement in breathing. He denies the presence of a cough. Objective: The patient's most recent lab work, culture data and imaging studies have all been personally reviewed. A CTA chest was obtained which revealed no evidence for pulmonary embolism. However, there was evidence of new airspace disease in the right middle and right lower lobe, along with spiculated nodules identified in the right upper lobe and medial left upper lobe. Strep and urine Legionella antigens were negative. Respiratory viral panel was negative. General: Alert, Cooperative, No apparent distress HEENT: Atraumatic, Normocephalic, - - Right glass eye Oral: Dry Mucosa, - - Edentulous Neck: Supple, No Nodes, Trachea Midline Lungs: - - Globally diminished air movement bilaterally without appreciable wheezes, rales or rhonchi. Increased AP diameter with prolonged expiratory phase present. Cardiovascular: Normal S1, Normal S2, No murmurs, Tachycardic Abdomen: Bowel Sounds Present, Soft, Non Tender Extremities: No clubbing, No cyanosis, Edema Skin: No breakdown Musculoskeletal: No Tenderness to Palpation of Joints or Extremities Lymphatic: No Cervical, Supraclavicular, or Inguinal Adenopathy Neurological: - - No focal neurological deficits. Psych/Mental Status: Anxious, Restless Vital Signs Temp Pulse Resp BP Pulse Ox 98.3 F 98 20 H 131/80 H 90 08/09/17 04:00 08/09/17 06:35 08/09/17 06:35 08/09/17 06:00 08/09/17 06:35 Oxygen Flow Rate (L/min) 12 Oxygen Delivery Method Venturi Mask Weight: 192 lb 0.362 oz Body Mass Index (BMI) 23.6 Intake and Output for Last 24 Hours 08/07/17 08/08/17 08/09/17 23:59 23:59 23:59 Intake Total 888 / 888 440.0 / 440.0 Output Total 750 / 750 1000 / 1000 Balance 138 / 138 -560.0 / -560.0 Labs (Last 48 Hours) 08/08/17 08/08/17 08/08/17 02:30 04:10 04:10 WBC 11.0 RBC 3.17 L Hgb 10.1 L Hct 30.8 L MCV 97.2 H MCH 31.9 MCHC 32.8 RDW 19.2 H RDW Differential 68.6 H Plt Count 268 MPV 8.3 Immature Gran % (Auto) 0.100 Neut % (Auto) 87.2 H Lymph % (Auto) 3.5 L [place] % (Auto) 9.2 Eos % (Auto) 0.0 Baso % (Auto) 0.0 Absolute Neuts (auto) 9.6 H Absolute Lymphs (auto) 0.38 L Total Counted Not Reportable Differential Comment SEE COMMENT Platelet Estimate ADEQUATE Anisocytosis 1+ Macrocytosis 1+ Sodium 137 Potassium 4.0 Chloride 99 Carbon Dioxide 32.0 Anion Gap 6 BUN 17 Creatinine 1.30 Estim Creat Clear Calc 63.99 Est GFR (MDRD) Af Amer 70 Est GFR (MDRD) Non-Af 58 L BUN/Creatinine Ratio 13.1 Glucose 136 H Calcium 7.8 L Total Bilirubin 0.70 AST 16 ALT 17 Alkaline Phosphatase 97 Troponin I Total Protein 6.6 Albumin 2.8 L Globulin 3.8 Albumin/Globulin Ratio 0.7 L MRSA (PCR) POSITIVE H 08/08/17 08/08/17 08/08/17 04:10 06:40 09:45 WBC RBC Hgb Hct MCV MCH MCHC RDW RDW Differential Plt Count MPV Immature Gran % (Auto) Neut % (Auto) Lymph % (Auto) [place] % (Auto) Eos % (Auto) Baso % (Auto) Absolute Neuts (auto) Absolute Lymphs (auto) Total Counted Differential Comment Platelet Estimate Anisocytosis Macrocytosis Sodium Potassium Chloride Carbon Dioxide Anion Gap BUN Creatinine Estim Creat Clear Calc Est GFR (MDRD) Af Amer Est GFR (MDRD) Non-Af BUN/Creatinine Ratio Glucose Calcium Total Bilirubin AST ALT Alkaline Phosphatase Troponin I 0.025 0.026 < 0.015 Total Protein Albumin Globulin Albumin/Globulin Ratio MRSA (PCR) 08/09/17 08/09/17 04:30 04:30 WBC 10.2 RBC 3.46 L Hgb 11.1 L Hct 33.4 L MCV 96.5 H MCH 32.1 H MCHC 33.2 RDW 19.2 H RDW Differential 65.2 H Plt Count 297 MPV 8.6 Immature Gran % (Auto) 0.700 Neut % (Auto) 87.6 H Lymph % (Auto) 3.1 L [place] % (Auto) 8.6 Eos % (Auto) 0.0 Baso % (Auto) 0.0 Absolute Neuts (auto) 8.9 H Absolute Lymphs (auto) 0.31 L Total Counted Pending Differential Comment Platelet Estimate Anisocytosis Macrocytosis Sodium 141 Potassium 3.9 Chloride 102 Carbon Dioxide 30.0 Anion Gap 9 BUN 17 Creatinine 1.13 Estim Creat Clear Calc 73.61 Est GFR (MDRD) Af Amer 82 Est GFR (MDRD) Non-Af 68 BUN/Creatinine Ratio 15.0 Glucose 135 H Calcium 8.6 Total Bilirubin AST ALT Alkaline Phosphatase Troponin I Total Protein Albumin Globulin Albumin/Globulin Ratio MRSA (PCR) Microbiology 08/08/17 11:46 Urine, Random Streptococcus pneumoniae Antigen (M - Final 08/08/17 11:46 Urine, Random Legionella Antigen - Final 08/08/17 09:01 Mucosa - Nose Respiratory Panel (PCR) - Final Clinical Impression(s) from Imaging Studies Chest X-Ray 08/07/17 23:33 IMPRESSION: Worsening of aeration with increase of opacification in the right base, possible superimposed inflammation/pneumonia on moderate COPD/emphysema. Enlarging spiculated masses left and right apex on CT are not appreciated on plain films. Electronically Signed: Marianne Verma MD at 0:11 EDT , Service support , Chest CTA 08/08/17 00:53 IMPRESSION: No demonstrated pulmonary embolism, aneurysm, leak or arterial dissection. New airspace disease in the right middle and right lower lobe likely pneumonia, possible aspiration. Distortion of airspace in the apices left greater than right appears decreased in size compared to the most recent examination, however still increased in size since 12/2016. The lesions remain indeterminate. Short-term interval follow-up examination or PET scan is advised. Arterial sclerosis, degenerative changes, osteoporosis, multilevel compression fractures, coronary artery disease, emphysema and upper abdominal findings appear stable. Electronically Signed: Marianne Verma MD at 1:54 EDT , Service support , Medical Necessity - Tobacco Use Smoking Status: Current every day smoker Assessment/Plan All Active Problems Anemia associated with acute blood loss (Acute) Acute normocytic severe anemia (Acute) Chronic respiratory failure (Acute) COPD (chronic obstructive pulmonary disease) (Acute) RECOMMENDATIONS: 1. Continue broad antibiotics for now. 2. Continue BiPAP at current pressure settings as needed and wean supplemental oxygen to maintain saturations at or greater than 88%. 3. Continue scheduled bronchodilators and steroids. 4. Continue Lovenox and Protonix for ICU prophylaxis 5. Formal speech therapy evaluation, once oxygenation has improved, prior to advancement of diet. IMPRESSIONS: 1. Acute on chronic respiratory failure secondary to COPD with exacerbation Clinical concern for possible aspiration pneumonia given findings noted on CTA chest. Plan to continue current supportive measures with BiPAP, scheduled bronchodilators, antibiotics and steroids, pending infectious workup. Patient will remain n.p.o. for now. Once he is able to be weaned from continuous BiPAP therapy, recommend speech therapy evaluation, prior to advancement of diet. Wean FiO2 as tolerated. 2. Abnormal chest imaging The patient does have evidence of spiculated nodules on CTA chest, which will need to be followed up upon longitudinally in the future. The patient undoubtedly needs to follow-up in the pulmonary medicine clinic after his discharge from the hospital. 3. Heart failure with preserved ejection fraction/pulmonary hypertension Continue current medical management. Beta-diana and Lasix can be transitioned to IV formulation. 4. Continuous tobacco dependence/GERD/hypertension Complicates care, management, recovery and prognosis. Continue PPI. Recommend physical therapy evaluation once medically stabilized. Patient will remain n.p.o. for now. Smoking cessation is strongly advisable. This note was generated with [employer] dictation software. It may contain incorrect words, spelling, and punctuation that were not noted in checking the note before signing. Code Visit Inpatient E&M: 60398 Subs Hosp L3
[2017-08-09 06:59] LABS: Anisocytosis 1+; Differential Comment SCAN; Macrocytosis 1+
--- NOTE | 2017-08-09 07:51 | PN_ITS ---
Subjective: Seen and examined. Patient looks much better than yesterday. Currently off BiPAP, pulse ox 90% on 50 L Ventimask. Tachypnea respiratory rate 24/min. No fever. Mild sinus tachycardia. Vitals/I&O's: Vital Signs Temp Pulse Resp BP Pulse Ox 98.3 F 110 H 24 H 150/85 H 89 08/09/17 04:00 08/09/17 07:00 08/09/17 07:00 08/09/17 07:00 08/09/17 07:00 Oxygen Flow Rate (L/min) 12 Oxygen Delivery Method Venturi Mask Weight: 192 lb 0.362 oz Body Mass Index (BMI) 23.6 Intake and Output for Last 24 Hours 08/07/17 08/08/17 08/09/17 23:59 23:59 23:59 Intake Total 888 / 888 440.0 / 440.0 Output Total 750 / 750 1000 / 1000 Balance 138 / 138 -560.0 / -560.0 General: Alert, Oriented x3, Cooperative HEENT: Atraumatic, PERRLA, EOMI, Normocephalic Neck: Supple, No JVD, Negative Carotid Bruits Lungs: No wheeze, Diminished, Rhonchi - Mild expiratory, Tachypneic, - - Weak cough reflex Cardiovascular: Regular rate, No murmurs Abdomen: Bowel Sounds Present, Soft, Non Tender, Non-Distended Extremities: No edema, Capillary Refill Less than 3 Seconds Skin: No rashes, No breakdown Musculoskeletal: No Tenderness to Palpation of Joints or Extremities, Arthritic Changes Neurological: Cranial nerves II-XII grossly intact Psych/Mental Status: Normal Affect, Appropriate Microbiology Past 72 Hours 08/08/17 11:46 Urine, Random Streptococcus pneumoniae Antigen (M - Final 08/08/17 11:46 Urine, Random Legionella Antigen - Final 08/08/17 09:01 Mucosa - Nose Respiratory Panel (PCR) - Final Laboratory Results 08/08/17 09:45: Troponin I < 0.015 08/09/17 04:30: WBC 10.2, RBC 3.46 L, Hgb 11.1 L, Hct 33.4 L, MCV 96.5 H, MCH 32.1 H, MCHC 33.2, RDW 19.2 H, RDW Differential 65.2 H, Plt Count 297, MPV 8.6, Immature Gran % (Auto) 0.700, Neut % (Auto) 87.6 H, Lymph % (Auto) 3.1 L, [place] % (Auto) 8.6, Eos % (Auto) 0.0, Baso % (Auto) 0.0, Absolute Neuts (auto) 8.9 H, Absolute Lymphs (auto) 0.31 L, Total Counted Not Reportable, Differential Comment SCAN, Anisocytosis 1+, Macrocytosis 1+ 08/09/17 04:30: Sodium 141, Potassium 3.9, Chloride 102, Carbon Dioxide 30.0, Anion Gap 9, BUN 17, Creatinine 1.13, Estim Creat Clear Calc 73.61, Est GFR ( MDRD) Af Amer 82, Est GFR (MDRD) Non-Af 68, BUN/Creatinine Ratio 15.0, Glucose 135 H, Calcium 8.6 Current Medications Albuterol/Ipratropium (Duoneb) 3 ml INHALATION Q4H.RT [facility] Last Admin: 08/09/17 06:35 Dose: 3 ml Amlodipine Besylate (Norvasc) 5 mg PO DAILY [facility] Last Admin: 08/08/17 11:12 Dose: Not Given Cyclobenzaprine HCl (Flexeril) 10 mg PO TID PRN PRN PRN Reason: MUSCLE SPASMS Enoxaparin Sodium (Lovenox) 40 mg SC DAILY [facility] Last Admin: 08/08/17 10:02 Dose: 40 mg Furosemide (Lasix) 10 mg PO DAILY [facility] Last Admin: 08/08/17 11:12 Dose: Not Given Sodium Chloride () 250 mls @ 15 mls/hr IV .[id number] PRN PRN Reason: SALINE FLUSH Last Admin: 08/08/17 03:53 Dose: 15 mls/hr Piperacillin Sod/Tazobactam Sod (Zosyn) 3.375 gm in 50 mls @ 12.5 mls/hr IV Q8 [facility] Last Admin: 08/09/17 05:25 Dose: 12.5 mls/hr Vancomycin HCl (Vancomycin) 1,000 mg in 200 mls @ 200 mls/hr IV Q12H [facility] Last Admin: 08/08/17 21:23 Dose: 200 mls/hr Vancomycin IV Pharmacy to Dose (1 ea/ Sodium Chloride) 500 mls @ 250 mls/hr IV UD PRN PRN Reason: Protocol Lisinopril (Zestril) 20 mg PO BID [facility] Last Admin: 08/08/17 20:39 Dose: Not Given Magnesium Hydroxide (Milk Of Magnesia) 30 ml PO DAILY PRN PRN PRN Reason: Constipation Methylprednisolone (Solu-Medrol) 40 mg IV Q8 [facility] Last Admin: 08/09/17 05:25 Dose: 40 mg Metoprolol Tartrate (Lopressor (Beta Delvin)) 25 mg PO QHS [facility] Metoprolol Tartrate (Lopressor (Beta Delvin)) 50 mg PO DAILY [facility] Last Admin: 08/08/17 11:12 Dose: Not Given Metoprolol Tartrate (Lopressor (Beta Delvin)) 2.5 mg IV Q8 [facility] Last Admin: 08/09/17 05:25 Dose: 2.5 mg Oxycodone HCl (Oxyir) 5 mg PO Q6H PRN PRN PRN Reason: PAIN Pantoprazole Sodium (Protonix) 20 mg PO BID [facility] Last Admin: 08/08/17 20:39 Dose: Not Given Sodium Chloride () 5 - 30 ml IV UD PRN PRN Reason: SALINE FLUSH Last Admin: 08/09/17 05:25 Dose: 20 ml Medical Necessity - Tobacco Use Smoking Status: Current every day smoker Assessment/Plan All Active Problems Anemia associated with acute blood loss (Acute) Acute normocytic severe anemia (Acute) Chronic respiratory failure (Acute) COPD (chronic obstructive pulmonary disease) (Acute) There is a 72-year-old gentleman with history of chronic hypoxic respiratory failure, predominantly due to COPD on 2 L of home oxygen was admitted with progressively worsening of shortness of breath over 1 week to the extent of dyspnea at rest on the day of admission. Pulse ox was 73% on nonrebreather with increased work of breathing. Patient denies fever or chills or chest pain. Labs shows WBC 11,000, ABG 7.42/44/67 at 100% FiO2 in ER at 23/09. MRSA nasal screen positive Patient had echo done in December 2016 which showed EF 55% to stage I diastolic dysfunction, trivial TR with RVSP 49 mmHg suggestive of moderate pulmonary hypertension. Mild diffuse aortic wall thickening with no aortic stenosis. Assessment and plan 1. Acute on chronic hypoxic respiratory failure, most probably from COPD exacerbation, multifocal pneumonia possible aspiration pneumonia: CT chest reviewed. Airspace consolidation in the right middle lobe and right lower lobe that raises concern for aspiration pneumonia. Patient also has severe emphysematous changes with diffuse involvement of all lobes. There is also reported spiculation of superior right upper lobe and soft tissue mass with the spiculation and distortion of medial left upper lobe. Patient said sometimes occasionally he coughs while eating but no clear evidence of aspiration. Patient needs complete evaluation by speech therapist or concern of aspiration. Discussed with a speech therapist in the room. 2. Complicated multifocal multilobar right middle lobe and right lower lobe aspiration pneumonia: Patient will need a speech evaluation after his respiratory status gets better and off BiPAP. Patient is on broad-spectrum IV antibiotic vancomycin and Zosyn. MRSA nasal screen is positive. No fever. Urinary antigens are negative. Respiratory panel negative. 3. Multiple small distorted and spiculated mass in the superior right upper lobe measuring 0.5 x 1.6 cm and 0.6 x 1.4 cm and soft tissue mass with spiculation and distortion of parenchyma in the medial left upper lobe measuring 1 x 1.5 cm. Currently on noninvasive pressure ventilation. Clinical Impression(s) from Imaging Studies Chest X-Ray 08/07/17 23:33 IMPRESSION: Worsening of aeration with increase of opacification in the right base, possible superimposed inflammation/pneumonia on moderate COPD/emphysema. Enlarging spiculated masses left and right apex on CT are not appreciated on plain films. Chest CTA 08/08/17 00:53 IMPRESSION: No demonstrated pulmonary embolism, aneurysm, leak or arterial dissection. New airspace disease in the right middle and right lower lobe likely pneumonia, possible aspiration. Distortion of airspace in the apices left greater than right appears decreased in size compared to the most recent examination, however still increased in size since 12/2016. The lesions remain indeterminate. Short-term interval follow-up examination or PET scan is advised. Arterial sclerosis, degenerative changes, osteoporosis, multilevel compression fractures, coronary artery disease, emphysema and upper abdominal findings appear stable. Microbiology Past 72 Hours 08/08/17 11:46 Urine, Random Streptococcus pneumoniae Antigen (M - Final 08/08/17 11:46 Urine, Random Legionella Antigen - Final 08/08/17 09:01 Mucosa - Nose Respiratory Panel (PCR) - Final Laboratory Results 08/08/17 09:45: Troponin I < 0.015 08/09/17 04:30: WBC 10.2, RBC 3.46 L, Hgb 11.1 L, Hct 33.4 L, MCV 96.5 H, MCH 32.1 H, MCHC 33.2, RDW 19.2 H, RDW Differential 65.2 H, Plt Count 297, MPV 8.6, Immature Gran % (Auto) 0.700, Neut % (Auto) 87.6 H, Lymph % (Auto) 3.1 L, [place] % (Auto) 8.6, Eos % (Auto) 0.0, Baso % (Auto) 0.0, Absolute Neuts (auto) 8.9 H, Absolute Lymphs (auto) 0.31 L, Total Counted Not Reportable, Differential Comment SCAN, Anisocytosis 1+, Macrocytosis 1+ 08/09/17 04:30: Sodium 141, Potassium 3.9, Chloride 102, Carbon Dioxide 30.0, Anion Gap 9, BUN 17, Creatinine 1.13, Estim Creat Clear Calc 73.61, Est GFR ( MDRD) Af Amer 82, Est GFR (MDRD) Non-Af 68, BUN/Creatinine Ratio 15.0, Glucose 135 H, Calcium 8.6 Code Visit Inpatient E&M: 85565 Subs Hosp L3
[2017-08-09] MEDS: Furosemide 20 MG Tablet 10 MG PO (10:58)
[2017-08-09] MEDS: Enoxaparin 40 MG/0.4 ML Syringe SC (10:59)
[2017-08-09] MEDS: amLODIPine 5 MG Tablet PO (10:59)
[2017-08-09] MEDS: Pantoprazole Sodium 20 MG Tablet PO ×2 (11:00→21:11)
[2017-08-09] MEDS: Lisinopril 20 MG Tablet PO ×2 (11:00→21:11)
[2017-08-09] MEDS: 0.9% NaCl IVPB Med Flush (250 mL) 15 ML IV (11:04)
[2017-08-10] VITALS (33 sets, daily range): BP systolic 129–165; BP diastolic 59–100; PULSE 62–126; RESP 12–28; TEMP 36.4–37.3; O2SAT 92–99
[2017-08-10] MEDS: Ipratropium/Albuterol Sulfate 3 ML AMPUL.NEB INHALATION ×4 (02:04→23:10)
--- NOTE | 2017-08-10 05:08 | PN_ITS ---
Subjective: The patient was seen and examined at the bedside this morning. Events from the last 24 hours have been reviewed. The patient is currently afebrile, hemodynamically stable and maintaining appropriate oxygen saturations on 8 L/ min via nasal cannula. The patient only utilize BiPAP overnight for approximately 3 hours. Patient was evaluated by speech therapy yesterday. The patient was noted to only be able to feed himself for probably 6-10 minutes before his oxygen saturations fell into the low 80s. The patient appears anxious to go home. Objective: The patient's most recent lab work, culture data and imaging studies have all been personally reviewed. A CTA chest was obtained which revealed no evidence for pulmonary embolism. However, there was evidence of new airspace disease in the right middle and right lower lobe, along with spiculated nodules identified in the right upper lobe and medial left upper lobe. Strep and urine Legionella antigens were negative. Respiratory viral panel was negative. Sputum cultures currently pending. General: Alert, Cooperative, No apparent distress, - - is present at the bedside. HEENT: Atraumatic, Normocephalic, - - Right-sided glass eye Oral: No Gingival or Mucosal Lesions/ Ulcerations Neck: Supple, No Nodes, Trachea Midline Lungs: No rhonchi, No wheeze, No rales, Diminished, - - Increased AP diameter with prolonged expiratory phase. Cardiovascular: Normal S1, Normal S2, No murmurs, Tachycardic Abdomen: Bowel Sounds Present, Soft, Non Tender Extremities: No clubbing, No cyanosis, Edema Skin: No breakdown Musculoskeletal: No Tenderness to Palpation of Joints or Extremities Lymphatic: No Cervical, Supraclavicular, or Inguinal Adenopathy Neurological: Neuro grossly intact Psych/Mental Status: Normal Affect, Appropriate Vital Signs Temp Pulse Resp BP Pulse Ox 97.6 F L 105 H 18 140/82 H 96 08/10/17 04:00 08/10/17 05:00 08/10/17 05:00 08/10/17 05:00 08/10/17 05:00 Oxygen Flow Rate (L/min) 8 Oxygen Delivery Method Nasal Cannula Weight: 192 lb 3.889 oz Body Mass Index (BMI) 23.6 Intake and Output for Last 24 Hours 08/08/17 08/09/17 08/10/17 23:59 23:59 23:59 Intake Total 888 / 888 1944.0 / 1944.0 Output Total 750 / 750 1300 / 1300 Balance 138 / 138 644.0 / 644.0 Labs (Last 48 Hours) 08/08/17 08/08/17 08/08/17 04:10 06:40 09:45 WBC RBC Hgb Hct MCV MCH MCHC RDW RDW Differential Plt Count MPV Immature Gran % (Auto) Neut % (Auto) Lymph % (Auto) [place] % (Auto) Eos % (Auto) Baso % (Auto) Absolute Neuts (auto) Absolute Lymphs (auto) Total Counted Not Reportable Differential Comment SEE COMMENT Platelet Estimate ADEQUATE Anisocytosis 1+ Macrocytosis 1+ Sodium Potassium Chloride Carbon Dioxide Anion Gap BUN Creatinine Estim Creat Clear Calc Est GFR (MDRD) Af Amer Est GFR (MDRD) Non-Af BUN/Creatinine Ratio Glucose Calcium Troponin I 0.026 < 0.015 08/09/17 08/09/17 04:30 04:30 WBC 10.2 RBC 3.46 L Hgb 11.1 L Hct 33.4 L MCV 96.5 H MCH 32.1 H MCHC 33.2 RDW 19.2 H RDW Differential 65.2 H Plt Count 297 MPV 8.6 Immature Gran % (Auto) 0.700 Neut % (Auto) 87.6 H Lymph % (Auto) 3.1 L [place] % (Auto) 8.6 Eos % (Auto) 0.0 Baso % (Auto) 0.0 Absolute Neuts (auto) 8.9 H Absolute Lymphs (auto) 0.31 L Total Counted Not Reportable Differential Comment SCAN Platelet Estimate Anisocytosis 1+ Macrocytosis 1+ Sodium 141 Potassium 3.9 Chloride 102 Carbon Dioxide 30.0 Anion Gap 9 BUN 17 Creatinine 1.13 Estim Creat Clear Calc 73.61 Est GFR (MDRD) Af Amer 82 Est GFR (MDRD) Non-Af 68 BUN/Creatinine Ratio 15.0 Glucose 135 H Calcium 8.6 Troponin I Microbiology 08/08/17 11:46 Urine, Random Streptococcus pneumoniae Antigen (M - Final 08/08/17 11:46 Urine, Random Legionella Antigen - Final 08/08/17 09:01 Mucosa - Nose Respiratory Panel (PCR) - Final Clinical Impression(s) from Imaging Studies Chest X-Ray 08/07/17 23:33 IMPRESSION: Worsening of aeration with increase of opacification in the right base, possible superimposed inflammation/pneumonia on moderate COPD/emphysema. Enlarging spiculated masses left and right apex on CT are not appreciated on plain films. Electronically Signed: Marianne Verma MD at 0:11 EDT , Service support , Chest CTA 08/08/17 00:53 IMPRESSION: No demonstrated pulmonary embolism, aneurysm, leak or arterial dissection. New airspace disease in the right middle and right lower lobe likely pneumonia, possible aspiration. Distortion of airspace in the apices left greater than right appears decreased in size compared to the most recent examination, however still increased in size since 12/2016. The lesions remain indeterminate. Short-term interval follow-up examination or PET scan is advised. Arterial sclerosis, degenerative changes, osteoporosis, multilevel compression fractures, coronary artery disease, emphysema and upper abdominal findings appear stable. Electronically Signed: Marianne Verma MD at 1:54 EDT , Service support , Medical Necessity - Tobacco Use Smoking Status: Current every day smoker Assessment/Plan All Active Problems Anemia associated with acute blood loss (Acute) Acute normocytic severe anemia (Acute) Chronic respiratory failure (Acute) COPD (chronic obstructive pulmonary disease) (Acute) RECOMMENDATIONS: 1. Continue broad antibiotics for now, given pending sputum culture. Antibiotics can likely be de-escalated tomorrow to complete a 7 day treatment course. 2. Continue BiPAP empirically with naps and nightly. Wean supplemental oxygen as tolerated. 3. Continue scheduled bronchodilators and steroids. Transition to prednisone 40 mg daily. 4. Continue Lovenox and Protonix for ICU prophylaxis 5. Advance diet per speech therapy recommendations 6. Physical therapy to evaluate patient today. 7. Perform walking oximetry study prior to consideration for discharge from the hospital. 8. Recommend outpatient pulmonary follow-up and longitudinal chest imaging studies. IMPRESSIONS: 1. Acute on chronic respiratory failure secondary to COPD with exacerbation Clinical concern for possible aspiration pneumonia given findings noted on CTA chest. Plan to continue current supportive measures with scheduled bronchodilators, antibiotics and steroids, pending infectious workup. Diet has been advanced per speech therapy recommendations. Continue to wean supplemental oxygen as tolerated. Recommend continuing empiric BiPAP therapy with naps and nightly. Antibiotics can likely be de-escalated beginning tomorrow to complete a 7 day treatment course. 2. Abnormal chest imaging The patient does have evidence of spiculated nodules on CTA chest, which will need to be followed up upon longitudinally in the future. The patient undoubtedly needs to follow-up in the pulmonary medicine clinic after his discharge from the hospital. 3. Heart failure with preserved ejection fraction/pulmonary hypertension Continue current medical management with beta-diana, diuretic and STEVIE inhibitor. 4. Continuous tobacco dependence/GERD/hypertension Complicates care, management, recovery and prognosis. Continue PPI. Recommend physical therapy evaluation today. Smoking cessation is strongly advisable. Continue nicotine replacement therapy while admitted to the hospital. This note was generated with [employer] dictation software. It may contain incorrect words, spelling, and punctuation that were not noted in checking the note before signing. DISPOSITION: The patient is medically stable for transfer out of the intensive care unit. Code Visit Inpatient E&M: [id number] [facility] Hosp L3
[2017-08-10] MEDS: Metoprolol Tartrate 5 MG/5 ML Vial 2.5 MG IV (05:41)
[2017-08-10] MEDS: Piperacil/Tazobactam 3.375 GM/50 ML ML IV ×3 (05:41→23:12)
[2017-08-10] MEDS: 0.9% NaCl Peripheral Flush Adult/Peds IV ×2 (05:42→13:51)
--- NOTE | 2017-08-10 08:12 | PCM.PN.HOSP ---
Subjective: Patient was on BiPAP last night. Currently on oxygen through nasal cannula. No fever Heart rate is controlled currently in 80s per minute. Pulse ox 95% on 6 L of oxygen. RR 18-20/min Vitals/I&O's: Vital Signs Temp Pulse Resp BP Pulse Ox 97.6 F L 87 19 H 149/86 H 95 08/10/17 04:00 08/10/17 07:24 08/10/17 07:00 08/10/17 07:00 08/10/17 07:00 Oxygen Flow Rate (L/min) 6 Oxygen Delivery Method Nasal Cannula Weight: 192 lb 3.889 oz Body Mass Index (BMI) 23.6 Intake and Output for Last 24 Hours 08/08/17 08/09/17 08/10/17 23:59 23:59 23:59 Intake Total 888 / 888 1944.0 / 1944.0 238.1 / 238.1 Output Total 750 / 750 1300 / 1300 300 / 300 Balance 138 / 138 644.0 / 644.0 -61.9 / -61.9 General: Alert, Oriented x3, Cooperative HEENT: Atraumatic, PERRLA, EOMI, Normocephalic Neck: Supple, No JVD, Negative Carotid Bruits Lungs: Diminished, Rhonchi Cardiovascular: Regular rate, Regular Rhythm, Normal S1, Normal S2, No murmurs Abdomen: Bowel Sounds Present, Soft, Non Tender Extremities: No edema, Capillary Refill Less than 3 Seconds Skin: No rashes, No breakdown Musculoskeletal: No Tenderness to Palpation of Joints or Extremities Neurological: Cranial nerves II-XII grossly intact, Neuro grossly intact Psych/Mental Status: Normal Affect, Appropriate Microbiology Past 72 Hours 08/08/17 11:46 Urine, Random Streptococcus pneumoniae Antigen (M - Final 08/08/17 11:46 Urine, Random Legionella Antigen - Final 08/08/17 09:01 Mucosa - Nose Respiratory Panel (PCR) - Final Current Medications Albuterol/Ipratropium (Duoneb) 3 ml INHALATION Q4H.RT [facility]ST[facility] Last Admin: 08/10/17 02:04 Dose: 3 ml Amlodipine Besylate (Norvasc) 5 mg PO DAILY [facility] Last Admin: 08/09/17 10:59 Dose: 5 mg Cyclobenzaprine HCl (Flexeril) 10 mg PO TID PRN PRN PRN Reason: MUSCLE SPASMS Last Admin: 08/09/17 21:11 Dose: 10 mg Enoxaparin Sodium (Lovenox) 40 mg SC DAILY [facility] Last Admin: 08/09/17 10:59 Dose: 40 mg Furosemide (Lasix) 10 mg PO DAILY [facility] Last Admin: 08/09/17 10:58 Dose: 10 mg Sodium Chloride () 250 mls @ 15 mls/hr IV .[id number] PRN PRN Reason: SALINE FLUSH Last Admin: 08/09/17 11:04 Dose: 15 mls/hr Piperacillin Sod/Tazobactam Sod (Zosyn) 3.375 gm in 50 mls @ 12.5 mls/hr IV Q8 [facility] Last Admin: 08/10/17 05:41 Dose: 12.5 mls/hr Vancomycin HCl (Vancomycin) 1,000 mg in 200 mls @ 200 mls/hr IV Q12H [facility] Last Admin: 08/09/17 21:10 Dose: 200 mls/hr Vancomycin IV Pharmacy to Dose (1 ea/ Sodium Chloride) 500 mls @ 250 mls/hr IV UD PRN PRN Reason: Protocol Lisinopril (Zestril) 20 mg PO BID [facility] Last Admin: 08/09/17 21:11 Dose: 20 mg Magnesium Hydroxide (Milk Of Magnesia) 30 ml PO DAILY PRN PRN PRN Reason: Constipation Methylprednisolone (Solu-Medrol) 40 mg IV Q8 [facility] Last Admin: 08/10/17 05:41 Dose: 40 mg Metoprolol Tartrate (Lopressor (Beta Delvin)) 25 mg PO QHS [facility] Metoprolol Tartrate (Lopressor (Beta Delvin)) 50 mg PO DAILY [facility] Last Admin: 08/08/17 11:12 Dose: Not Given Metoprolol Tartrate (Lopressor (Beta Delvin)) 2.5 mg IV Q8 [facility] Last Admin: 08/10/17 05:41 Dose: 2.5 mg Nicotine (Nicoderm Cq (Pbkc)) 21 mg TRANSDERM. DAILY [facility] Last Admin: 08/09/17 18:32 Dose: 21 mg Oxycodone HCl (Oxyir) 5 mg PO Q6H PRN PRN PRN Reason: PAIN Pantoprazole Sodium (Protonix) 20 mg PO BID [facility] Last Admin: 08/09/17 21:11 Dose: 20 mg Sodium Chloride () 5 - 30 ml IV UD PRN PRN Reason: SALINE FLUSH Last Admin: 08/10/17 05:42 Dose: 20 ml Medical Necessity - Tobacco Use Smoking Status: Current every day smoker Assessment/Plan All Active Problems Anemia associated with acute blood loss (Acute) Acute normocytic severe anemia (Acute) Chronic respiratory failure (Acute) COPD (chronic obstructive pulmonary disease) (Acute) There is a 72-year-old gentleman with history of chronic hypoxic respiratory failure, predominantly due to COPD on 2 L of home oxygen was admitted with progressively worsening of shortness of breath over 1 week to the extent of dyspnea at rest on the day of admission. Pulse ox was 73% on nonrebreather with increased work of breathing. Patient denies fever or chills or chest pain. Labs shows WBC 11,000, ABG 7.42/44/67 at 100% FiO2 in ER at 18/8. MRSA nasal screen positive Patient had echo done in December 2016 which showed EF 55% to stage I diastolic dysfunction, trivial TR with RVSP 49 mmHg suggestive of moderate pulmonary hypertension. Mild diffuse aortic wall thickening with no aortic stenosis. Assessment and plan 1. Acute on chronic hypoxic respiratory failure, most probably from COPD exacerbation, multifocal pneumonia possible aspiration pneumonia: CT chest reviewed. Airspace consolidation in the right middle lobe and right lower lobe that raises concern for aspiration pneumonia. Patient also has severe emphysematous changes with diffuse involvement of all lobes. There is also reported spiculation of superior right upper lobe and soft tissue mass with the spiculation and distortion of medial left upper lobe. Patient said sometimes occasionally he coughs while eating but no clear evidence of aspiration. Patient needs complete evaluation by speech therapist or concern of aspiration. The patient was assessed by speech therapist and recommended pur?ed texture, nectar thick liquid with close observation with small sips and bites. 2. Complicated multifocal multilobar right middle lobe and right lower lobe aspiration pneumonia: Patient will need a speech evaluation after his respiratory status gets better and off BiPAP. Patient is on broad-spectrum IV antibiotic vancomycin and Zosyn. MRSA nasal screen is positive. No fever. Urinary antigens are negative. Respiratory panel negative. 3. Multiple small distorted and spiculated mass in the superior right upper lobe measuring 0.5 x 1.6 cm and 0.6 x 1.4 cm and soft tissue mass with spiculation and distortion of parenchyma in the medial left upper lobe measuring 1 x 1.5 cm. Clinical Impression(s) from Imaging Studies Chest X-Ray 08/07/17 23:33 IMPRESSION: Worsening of aeration with increase of opacification in the right base, possible superimposed inflammation/pneumonia on moderate COPD/emphysema. Enlarging spiculated masses left and right apex on CT are not appreciated on plain films. Chest CTA 08/08/17 00:53 IMPRESSION: No demonstrated pulmonary embolism, aneurysm, leak or arterial dissection. New airspace disease in the right middle and right lower lobe likely pneumonia, possible aspiration. Distortion of airspace in the apices left greater than right appears decreased in size compared to the most recent examination, however still increased in size since 12/2016. The lesions remain indeterminate. Short-term interval follow-up examination or PET scan is advised. Arterial sclerosis, degenerative changes, osteoporosis, multilevel compression fractures, coronary artery disease, emphysema and upper abdominal findings appear stable. Microbiology Past 72 Hours 08/08/17 11:46 Urine, Random Streptococcus pneumoniae Antigen (M - Final 08/08/17 11:46 Urine, Random Legionella Antigen - Final 08/08/17 09:01 Mucosa - Nose Respiratory Panel (PCR) - Final Code Visit Inpatient E&M: [id number] Subs Hosp L3
--- NOTE | 2017-08-10 08:20 | PN_ITS ---
Subjective: Patient was on BiPAP last night. Currently on oxygen through nasal cannula. No fever Heart rate is controlled currently in 80s per minute. Pulse ox 95% on 6 L of oxygen. RR 18-20/min Vitals/I&O's: Vital Signs Temp Pulse Resp BP Pulse Ox 97.6 F L 87 19 H 149/86 H 95 08/10/17 04:00 08/10/17 07:24 08/10/17 07:00 08/10/17 07:00 08/10/17 07:00 Oxygen Flow Rate (L/min) 6 Oxygen Delivery Method Nasal Cannula Weight: 192 lb 3.889 oz Body Mass Index (BMI) 23.6 Intake and Output for Last 24 Hours 08/08/17 08/09/17 08/10/17 23:59 23:59 23:59 Intake Total 888 / 888 1944.0 / 1944.0 238.1 / 238.1 Output Total 750 / 750 1300 / 1300 300 / 300 Balance 138 / 138 644.0 / 644.0 -61.9 / -61.9 General: Alert, Oriented x3, Cooperative HEENT: Atraumatic, PERRLA, EOMI, Normocephalic Neck: Supple, No JVD, Negative Carotid Bruits Lungs: Diminished, Rhonchi Cardiovascular: Regular rate, Regular Rhythm, Normal S1, Normal S2, No murmurs Abdomen: Bowel Sounds Present, Soft, Non Tender Extremities: No edema, Capillary Refill Less than 3 Seconds Skin: No rashes, No breakdown Musculoskeletal: No Tenderness to Palpation of Joints or Extremities Neurological: Cranial nerves II-XII grossly intact, Neuro grossly intact Psych/Mental Status: Normal Affect, Appropriate Microbiology Past 72 Hours 08/08/17 11:46 Urine, Random Streptococcus pneumoniae Antigen (M - Final 08/08/17 11:46 Urine, Random Legionella Antigen - Final 08/08/17 09:01 Mucosa - Nose Respiratory Panel (PCR) - Final Current Medications Albuterol/Ipratropium (Duoneb) 3 ml INHALATION Q4H.RT [facility] Last Admin: 08/10/17 02:04 Dose: 3 ml Amlodipine Besylate (Norvasc) 5 mg PO DAILY [facility] Last Admin: 08/09/17 10:59 Dose: 5 mg Cyclobenzaprine HCl (Flexeril) 10 mg PO TID PRN PRN PRN Reason: MUSCLE SPASMS Last Admin: 08/09/17 21:11 Dose: 10 mg Enoxaparin Sodium (Lovenox) 40 mg SC DAILY [facility] Last Admin: 08/09/17 10:59 Dose: 40 mg Furosemide (Lasix) 10 mg PO DAILY [facility] Last Admin: 08/09/17 10:58 Dose: 10 mg Sodium Chloride () 250 mls @ 15 mls/hr IV .[id number] PRN PRN Reason: SALINE FLUSH Last Admin: 08/09/17 11:04 Dose: 15 mls/hr Piperacillin Sod/Tazobactam Sod (Zosyn) 3.375 gm in 50 mls @ 12.5 mls/hr IV Q8 [facility] Last Admin: 08/10/17 05:41 Dose: 12.5 mls/hr Vancomycin HCl (Vancomycin) 1,000 mg in 200 mls @ 200 mls/hr IV Q12H [facility] Last Admin: 08/09/17 21:10 Dose: 200 mls/hr Vancomycin IV Pharmacy to Dose (1 ea/ Sodium Chloride) 500 mls @ 250 mls/hr IV UD PRN PRN Reason: Protocol Lisinopril (Zestril) 20 mg PO BID [facility] Last Admin: 08/09/17 21:11 Dose: 20 mg Magnesium Hydroxide (Milk Of Magnesia) 30 ml PO DAILY PRN PRN PRN Reason: Constipation Methylprednisolone (Solu-Medrol) 40 mg IV Q8 [facility] Last Admin: 08/10/17 05:41 Dose: 40 mg Metoprolol Tartrate (Lopressor (Beta Delvin)) 25 mg PO QHS [facility] Metoprolol Tartrate (Lopressor (Beta Delvin)) 50 mg PO DAILY [facility] Last Admin: 08/08/17 11:12 Dose: Not Given Metoprolol Tartrate (Lopressor (Beta Delvin)) 2.5 mg IV Q8 [facility] Last Admin: 08/10/17 05:41 Dose: 2.5 mg Nicotine (Nicoderm Cq (Pbkc)) 21 mg TRANSDERM. DAILY [facility] Last Admin: 08/09/17 18:32 Dose: 21 mg Oxycodone HCl (Oxyir) 5 mg PO Q6H PRN PRN PRN Reason: PAIN Pantoprazole Sodium (Protonix) 20 mg PO BID [facility] Last Admin: 08/09/17 21:11 Dose: 20 mg Sodium Chloride () 5 - 30 ml IV UD PRN PRN Reason: SALINE FLUSH Last Admin: 08/10/17 05:42 Dose: 20 ml Medical Necessity - Tobacco Use Smoking Status: Current every day smoker Assessment/Plan All Active Problems Anemia associated with acute blood loss (Acute) Acute normocytic severe anemia (Acute) Chronic respiratory failure (Acute) COPD (chronic obstructive pulmonary disease) (Acute) There is a 72-year-old gentleman with history of chronic hypoxic respiratory failure, predominantly due to COPD on 2 L of home oxygen was admitted with progressively worsening of shortness of breath over 1 week to the extent of dyspnea at rest on the day of admission. Pulse ox was 73% on nonrebreather with increased work of breathing. Patient denies fever or chills or chest pain. Labs shows WBC 11,000, ABG 7.42/44/67 at 100% FiO2 in ER at 18/8. MRSA nasal screen positive Patient had echo done in December 2016 which showed EF 55% to stage I diastolic dysfunction, trivial TR with RVSP 49 mmHg suggestive of moderate pulmonary hypertension. Mild diffuse aortic wall thickening with no aortic stenosis. Assessment and plan 1. Acute on chronic hypoxic respiratory failure, most probably from COPD exacerbation, multifocal pneumonia possible aspiration pneumonia: CT chest reviewed. Airspace consolidation in the right middle lobe and right lower lobe that raises concern for aspiration pneumonia. Patient also has severe emphysematous changes with diffuse involvement of all lobes. There is also reported spiculation of superior right upper lobe and soft tissue mass with the spiculation and distortion of medial left upper lobe. Patient said sometimes occasionally he coughs while eating but no clear evidence of aspiration. Patient needs complete evaluation by speech therapist or concern of aspiration. The patient was assessed by speech therapist and recommended pur?ed texture, nectar thick liquid with close observation with small sips and bites. 2. Complicated multifocal multilobar right middle lobe and right lower lobe aspiration pneumonia: Patient will need a speech evaluation after his respiratory status gets better and off BiPAP. Patient is on broad-spectrum IV antibiotic vancomycin and Zosyn. MRSA nasal screen is positive. No fever. Urinary antigens are negative. Respiratory panel negative. 3. Multiple small distorted and spiculated mass in the superior right upper lobe measuring 0.5 x 1.6 cm and 0.6 x 1.4 cm and soft tissue mass with spiculation and distortion of parenchyma in the medial left upper lobe measuring 1 x 1.5 cm. Clinical Impression(s) from Imaging Studies Chest X-Ray 08/07/17 23:33 IMPRESSION: Worsening of aeration with increase of opacification in the right base, possible superimposed inflammation/pneumonia on moderate COPD/emphysema. Enlarging spiculated masses left and right apex on CT are not appreciated on plain films. Chest CTA 08/08/17 00:53 IMPRESSION: No demonstrated pulmonary embolism, aneurysm, leak or arterial dissection. New airspace disease in the right middle and right lower lobe likely pneumonia, possible aspiration. Distortion of airspace in the apices left greater than right appears decreased in size compared to the most recent examination, however still increased in size since 12/2016. The lesions remain indeterminate. Short-term interval follow-up examination or PET scan is advised. Arterial sclerosis, degenerative changes, osteoporosis, multilevel compression fractures, coronary artery disease, emphysema and upper abdominal findings appear stable. Microbiology Past 72 Hours 08/08/17 11:46 Urine, Random Streptococcus pneumoniae Antigen (M - Final 08/08/17 11:46 Urine, Random Legionella Antigen - Final 08/08/17 09:01 Mucosa - Nose Respiratory Panel (PCR) - Final Code Visit Inpatient E&M: [id number] Subs Hosp L3
[2017-08-10 09:59] LABS: Vancomycin, Trough Level 18.8 ug/mL (5.0-15.0)
[2017-08-10] MEDS: Metoprolol Tartrate 50 MG Tablet PO (10:35)
[2017-08-10] MEDS: Enoxaparin 40 MG/0.4 ML Syringe SC (10:36)
[2017-08-10] MEDS: Lisinopril 20 MG Tablet PO ×2 (10:36→21:47)
[2017-08-10] MEDS: amLODIPine 5 MG Tablet PO (10:37)
[2017-08-10] MEDS: Pantoprazole Sodium 20 MG Tablet PO ×2 (10:37→21:46)
[2017-08-10] MEDS: Furosemide 20 MG Tablet 10 MG PO (10:37)
--- NOTE | 2017-08-10 11:16 | PCM.RX.CS ---
Consult Pharmacy has been consulted to manage selected antiobiotic: Vancomycin Type of Consult: Follow-up Suspected Infection: Pneumonia Prior Doses of Antibiotics Received/Current Regimen: VANCOMYCIN 1000MG IV Q12HRS: 08/09 @1104, 2110 AND 08/10 @1035 Labs: Sodium 141 mmol/L (136-145) 08/09/17 04:30 Potassium 3.9 mmol/L (3.5-5.1) 08/09/17 04:30 Chloride 102 mmol/L (98-107) 08/09/17 04:30 Carbon Dioxide 30.0 mmol/L (21.0-32.0) 08/09/17 04:30 Anion Gap 9 (5-15) 08/09/17 04:30 BUN 17 mg/dL (-) 08/09/17 04:30 Creatinine 1.13 mg/dL (0.70-1.30) 08/09/17 04:30 Est GFR (MDRD) Af Amer 82 mL/min (>60) 08/09/17 04:30 Est GFR (MDRD) Non-Af 68 mL/min (>60) 08/09/17 04:30 BUN/Creatinine Ratio 15.0 RATIO (10-20) 08/09/17 04:30 Glucose 135 mg/dL (74-106) H 08/09/17 04:30 Vancomycin Trough 18.8 ug/mL (5.0-15.0) H 08/10/17 09:15 Microbiology: Microbiology 08/08/17 11:46 Urine, Random Streptococcus pneumoniae Antigen (M - Final 08/08/17 11:46 Urine, Random Legionella Antigen - Final 08/08/17 09:01 Mucosa - Nose Respiratory Panel (PCR) - Final Weight used for dosin kg Goal Trough: 15-20 mcg/mL Pharmacy Plan for Drug Dosing: A trough was drawn which resulted in a value of 18.8 (drawn ~12hrs from last dose administered). Will continue the current regimen given the patient is within goal trough range. Will schedule a trough in 4 days to reassess dosing. PLAN/RECOMMENDATIONS 1. Continue vancomycin 1000mg IV Q12hrs 2. Trough scheduled for 08/14/17 @0930 to reassess 3 Pharmacy Service will continue to monitor and adjust dosing as required.
[2017-08-10] MEDS: Metoprolol Tartrate 25 MG Tablet PO (21:48)
[2017-08-11] VITALS (30 sets, daily range): BP systolic 100–138; BP diastolic 64–78; PULSE 77–113; RESP 12–24; TEMP 36.6–37.2; O2SAT 89–95
[2017-08-11] MEDS: Ipratropium/Albuterol Sulfate 3 ML AMPUL.NEB INHALATION ×6 (04:15→22:31)
[2017-08-11] MEDS: Piperacil/Tazobactam 3.375 GM/50 ML ML IV (06:01)
[2017-08-11 06:02] LABS: Absolute Lymphocyte Count 1.23 X10^3/ul (0.83-4.51); Absolute Neutrophil Count 11.5 X10^3/uL (2.0-7.7); Basophil# 0.02 X10^3/uL; Basophil% 0.1 % (0-1); Eosinophil# 0.01 X10^3/uL; Eosinophils% 0.1 % (0-5); Hematocrit 33.8 % (40-54); Hemoglobin 11.1 g/dl (13.0-16.5); Lymphocyte # 1.23 X10^3/ul (4.0); Lymphocyte % 8.5 % (19-41); Mean Corp Hgb Conc 32.8 g/gl (32-36); Mean Corpuscular Hgb 31.9 pg (27.0-32.0); Mean Corpuscular Volume 97.1 fL (80-94); Mean Platelet Vol. 8.7 fl (6.2-12.0); Monocyte# 1.59 X10^3/uL; Monocyte% 10.9 % (0-10); Neutrophil # 11.53 X10^3/uL (2.7-7.7); Neutrophil % 79.2 % (47-70); Platelet Count 314 K/mm3 (150-450); RBC Distribution Width CV 19.2 % (11.6-14.6); RBC Distribution Width SD 66.1 fl (35.1-43.9); Red Blood Count 3.48 M/mm3 (4.6-6.2); White Blood Count 14.6 K/mm3 (4.4-11.0)
[2017-08-11 06:03] LABS: Differential Indicated SCAN CRITERIA MET; POSITIVE COUNT NO; POSITIVE DIFFERENTIAL YES; POSITIVE MORPHOLOGY YES
[2017-08-11 06:20] LABS: Anion Gap 10 (5-15); BUN 22 mg/dL (7-18); BUN/Creat Ratio 17.2 RATIO (10-20); Calcium,Total 8.7 mg/dL (8.5-10.1); Chloride 99 mmol/L (98-107); Creatinine, Serum 1.28 mg/dL (0.70-1.30); EST Glomerular Filtration Rate 59 mL/min (>60); Est Glom Filt Rate - Afr Amer 71 mL/min (>60); Estimated Creatinine Clearance 64.84 ml/min; Glucose 81 mg/dL (74-106); Potassium 3.5 mmol/L (3.5-5.1); Sodium Level 138 mmol/L (136-145)
[2017-08-11 07:09] LABS: Anisocytosis 1+; Differential Comment SCAN; Microcytosis 1+
--- NOTE | 2017-08-11 07:19 | PN_ITS ---
Subjective: The patient was seen and examined at the bedside this morning. Events from the last 24 hours have been reviewed. The patient is currently afebrile, hemodynamically stable and maintaining appropriate oxygen saturations on 3 L/ min via nasal cannula. The patient was placed on BiPAP last evening 14/7 cm of water. He denies the presence of a cough. Shortness of breath has improved. Objective: The patient's most recent lab work, culture data and imaging studies have all been personally reviewed. A CTA chest was obtained which revealed no evidence for pulmonary embolism. However, there was evidence of new airspace disease in the right middle and right lower lobe, along with spiculated nodules identified in the right upper lobe and medial left upper lobe. Strep and urine Legionella antigens were negative. Respiratory viral panel was negative. Sputum culture revealed 3+ staph aureus, sensitivities are pending. - Physical Exam General: Alert, Cooperative, No apparent distress, - - is present at the bedside. HEENT: Atraumatic, Normocephalic Oral: No Gingival or Mucosal Lesions/ Ulcerations Neck: Supple, No Nodes, Trachea Midline Lungs: No rhonchi, No wheeze, No rales, Diminished Cardiovascular: Regular rate, Regular Rhythm, Normal S1, Normal S2, No murmurs Abdomen: Bowel Sounds Present, Soft, Non Tender, Non-Distended Extremities: No clubbing, No cyanosis, Edema Skin: No breakdown Musculoskeletal: No Tenderness to Palpation of Joints or Extremities Lymphatic: No Cervical, Supraclavicular, or Inguinal Adenopathy Neurological: Neuro grossly intact Psych/Mental Status: Normal Affect, Appropriate Vital Signs Temp Pulse Resp BP Pulse Ox 98.1 F 90 24 H 111/78 89 08/11/17 03:35 08/11/17 04:15 08/11/17 04:15 08/11/17 03:35 08/11/17 04:19 Oxygen Flow Rate (L/min) 3 Oxygen Delivery Method Nasal Cannula Weight: 190 lb 14.725 oz Body Mass Index (BMI) 23.6 Intake and Output for Last 24 Hours 08/09/17 08/10/17 08/11/17 23:59 23:59 23:59 Intake Total 1944.0 / 1944.0 1590.1 / 1590.1 Output Total 1300 / 1300 750 / 750 300 / 300 Balance 644.0 / 644.0 840.1 / 840.1 -300 / -300 Microbiology Past 72 Hours 08/10/17 07:35 Gram Stain - Final Sputum, Expectorated/Coughed 08/08/17 11:46 Streptococcus pneumoniae Antigen (M - Final Urine, Random 08/08/17 11:46 Legionella Antigen - Final Urine, Random 08/08/17 09:01 Respiratory Panel (PCR) - Final Mucosa - Nose Laboratory Tests Past 24 Hrs 08/10/17 08/11/17 08/11/17 09:15 05:30 05:30 WBC 14.6 H RBC 3.48 L Hgb 11.1 L Hct 33.8 L MCV 97.1 H MCH 31.9 MCHC 32.8 RDW 19.2 H RDW Differential 66.1 H Plt Count 314 MPV 8.7 Immature Gran % (Auto) 1.200 H Neut % (Auto) 79.2 H Lymph % (Auto) 8.5 L Crisp % (Auto) 10.9 H Eos % (Auto) 0.1 Baso % (Auto) 0.1 Absolute Neuts (auto) 11.5 H Absolute Lymphs (auto) 1.23 Total Counted Not Reportable Differential Comment SCAN Anisocytosis 1+ Microcytosis 1+ Sodium 138 Potassium 3.5 Chloride 99 Carbon Dioxide 29.0 Anion Gap 10 BUN 22 H Creatinine 1.28 Estim Creat Clear Calc 64.84 Est GFR (MDRD) Af Amer 71 Est GFR (MDRD) Non-Af 59 L BUN/Creatinine Ratio 17.2 Glucose 81 Calcium 8.7 Vancomycin Trough 18.8 H Clinical Impression(s) from Imaging Studies Chest X-Ray 08/07/17 23:33 IMPRESSION: Worsening of aeration with increase of opacification in the right base, possible superimposed inflammation/pneumonia on moderate COPD/emphysema. Enlarging spiculated masses left and right apex on CT are not appreciated on plain films. Electronically Signed: Marianne Verma MD at 0:11 EDT , Service support , Chest CTA 08/08/17 00:53 IMPRESSION: No demonstrated pulmonary embolism, aneurysm, leak or arterial dissection. New airspace disease in the right middle and right lower lobe likely pneumonia, possible aspiration. Distortion of airspace in the apices left greater than right appears decreased in size compared to the most recent examination, however still increased in size since 12/2016. The lesions remain indeterminate. Short-term interval follow-up examination or PET scan is advised. Arterial sclerosis, degenerative changes, osteoporosis, multilevel compression fractures, coronary artery disease, emphysema and upper abdominal findings appear stable. Electronically Signed: Marianne Verma MD at 1:54 EDT , Service support , Medical Necessity - Tobacco Use Smoking Status: Current every day smoker Assessment/Plan All Active Problems Anemia associated with acute blood loss (Acute) Acute normocytic severe anemia (Acute) Chronic respiratory failure (Acute) COPD (chronic obstructive pulmonary disease) (Acute) RECOMMENDATIONS: 1. Continue antibiotics, steroids and bronchodilators. Plan to complete a 10 day treatment course. 2. Continue BiPAP empirically with naps and nightly. Wean supplemental oxygen as tolerated. 3. Encourage incentive spirometer use and mobilize patient as tolerated. 4. Perform walking oximetry study prior to consideration for discharge from the hospital. 5. Recommend outpatient pulmonary follow-up and longitudinal chest imaging studies. IMPRESSIONS: 1. Acute on chronic respiratory failure secondary to COPD with exacerbation due to staphylococcal pneumonia Plan to continue current supportive measures with scheduled bronchodilators, antibiotics and steroids. Diet has been advanced per speech therapy recommendations. Continue to wean supplemental oxygen as tolerated. Recommend continuing empiric BiPAP therapy with naps and nightly. Recommend completing a 10 day course of antibiotics. Patient will require a prolonged steroid taper at discharge. Perform walking oximetry study prior to consideration for discharge from the hospital. Encourage incentive spirometer use and mobilize patient as tolerated. 2. Abnormal chest imaging The patient does have evidence of spiculated nodules on CTA chest, which will need to be followed up upon longitudinally in the future. The patient undoubtedly needs to follow-up in the pulmonary medicine clinic after his discharge from the hospital. 3. Heart failure with preserved ejection fraction/pulmonary hypertension Continue current medical management with beta-diana, diuretic and STEVIE inhibitor. 4. Continuous tobacco dependence/GERD/hypertension Complicates care, management, recovery and prognosis. Continue work with physical therapy. Smoking cessation is strongly advisable. Continue nicotine replacement therapy while admitted to the hospital. This note was generated with [employer] software. It may contain incorrect words, spelling, and punctuation that were not noted in checking the note before signing. Code Visit Inpatient E&M: 12678 Subs Hosp L2
[2017-08-11] MEDS: predniSONE 20 MG Tablet 40 MG PO (07:57)
[2017-08-11] MEDS: Enoxaparin 40 MG/0.4 ML Syringe SC (11:00)
[2017-08-11] MEDS: Pantoprazole Sodium 20 MG Tablet PO ×2 (11:00→21:01)
[2017-08-11] MEDS: Smz/Tmp Ds Tablet 1 TABLET PO ×2 (12:16→17:04)
--- NOTE | 2017-08-11 14:14 | RAD_ITS ---
STUDY: X-RAY CHEST REASON FOR EXAM: Male, 72 years old. SOB / SOA TECHNIQUE: Single frontal view of the chest. COMPARISON: August 07, 2017 FINDINGS: Chronic appearing increased interstitial lung markings. There are scattered blebs and bullae. This can be seen in pulmonary emphysema. There is no demonstrated pleural abnormality. Improvement in the right middle lobe and right lower lobe pneumonia. Enlarged heart size. Normal mediastinum and cedrick. Normal visualized pulmonary arteries. There is atherosclerotic calcification of the aortic arch with tortuosity. There are diffuse degenerative changes of the visualized thoracic spine. There is degenerative osteoarthritis of the bilateral shoulders. There is no demonstrated abnormality of the visualized soft tissue structures of the upper abdomen. RAD/Chest 1 View (Portable) IMPRESSION: Improvement in the right middle lobe and right lower lobe pneumonia. Electronically Signed: Roshan Valenzuela MD at 16:58 EDT , Service support ,
--- NOTE | 2017-08-11 15:26 | PCM.PN.HOSP ---
Subjective: Seen and examined in the morning and then afternoon In the morning, patient was on 3-4 L of oxygen. Blood pressure was on lower side 100/69 mostly secondary to antihypertensive medication. Antihypertensive medication dose decreased with holding parameters written. In afternoon, patient got more short of breath and placed on 6 L of oxygen. He also got sudden onset of left upper back pain most probably from muscle strain without fall. He had similar muscle strain in the morning. Chest x-ray ordered. Vitals/I&O's: Vital Signs Temp Pulse Resp BP Pulse Ox 98.3 F 111 H 18 123/73 H 89 08/11/17 14:45 08/11/17 14:45 08/11/17 14:45 08/11/17 14:45 08/11/17 14:45 Oxygen Flow Rate (L/min) 5 Oxygen Delivery Method Nasal Cannula Weight: 190 lb 14.725 oz Body Mass Index (BMI) 23.6 Intake and Output for Last 24 Hours 08/09/17 08/10/17 08/11/17 23:59 23:59 23:59 Intake Total 1944.0 / 1944.0 1590.1 / 1590.1 240 / 240 Output Total 1300 / 1300 750 / 750 300 / 300 Balance 644.0 / 644.0 840.1 / 840.1 -60 / -60 General: Alert, Oriented x3, Cooperative HEENT: Atraumatic, PERRLA, EOMI, Normocephalic Neck: Supple, No JVD, Negative Carotid Bruits Lungs: No rhonchi, No wheeze, Diminished Cardiovascular: Regular rate, Normal S1, Normal S2, No murmurs Abdomen: Bowel Sounds Present, Soft, Non Tender, Non-Distended Extremities: No edema, Capillary Refill Less than 3 Seconds Skin: No rashes, No breakdown Musculoskeletal: Arthritic Changes, Tenderness - Tenderness over left upper back Neurological: Cranial nerves II-XII grossly intact Psych/Mental Status: Normal Affect, Appropriate Microbiology Past 72 Hours 08/10/17 07:35 Sputum, Expectorated/Coughed Gram Stain - Final 08/10/17 07:35 Sputum, Expectorated/Coughed Respiratory Culture - Preliminary Staphylococcus aureus 08/08/17 11:46 Urine, Random Streptococcus pneumoniae Antigen (M - Final 08/08/17 11:46 Urine, Random Legionella Antigen - Final 08/08/17 09:01 Mucosa - Nose Respiratory Panel (PCR) - Final Laboratory Results 08/11/17 05:30: WBC 14.6 H, RBC 3.48 L, Hgb 11.1 L, Hct 33.8 L, MCV 97.1 H, MCH 31.9, MCHC 32.8, RDW 19.2 H, RDW Differential 66.1 H, Plt Count 314, MPV 8.7, Immature Gran % (Auto) 1.200 H, Neut % (Auto) 79.2 H, Lymph % (Auto) 8.5 L, [place] % (Auto) 10.9 H, Eos % (Auto) 0.1, Baso % (Auto) 0.1, Absolute Neuts (auto) 11.5 H, Absolute Lymphs (auto) 1.23, Total Counted Not Reportable, Differential Comment SCAN, Anisocytosis 1+, Microcytosis 1+ 08/11/17 05:30: Sodium 138, Potassium 3.5, Chloride 99, Carbon Dioxide 29.0, Anion Gap 10, BUN 22 H, Creatinine 1.28, Estim Creat Clear Calc 64.84, Est GFR (MDRD) Af Amer 71, Est GFR (MDRD) Non-Af 59 L, BUN/Creatinine Ratio 17.2, Glucose 81, Calcium 8.7 Current Medications Albuterol/Ipratropium (Duoneb) 3 ml INHALATION Q4H.RT [facility] Last Admin: 08/11/17 15:05 Dose: 3 ml Cyclobenzaprine HCl (Flexeril) 10 mg PO TID PRN PRN PRN Reason: MUSCLE SPASMS Last Admin: 08/09/17 21:11 Dose: 10 mg Enoxaparin Sodium (Lovenox) 40 mg SC DAILY [facility] Last Admin: 08/11/17 11:00 Dose: 40 mg Furosemide (Lasix) 10 mg PO DAILY [facility] Last Admin: 08/11/17 11:00 Dose: Not Given Sodium Chloride () 250 mls @ 15 mls/hr IV .[id number] PRN PRN Reason: SALINE FLUSH Last Admin: 08/09/17 11:04 Dose: 15 mls/hr Lisinopril (Zestril) 10 mg PO DAILY [facility] Magnesium Hydroxide (Milk Of Magnesia) 30 ml PO DAILY PRN PRN PRN Reason: Constipation Metoprolol Tartrate (Lopressor (Beta Delvin)) 25 mg PO DAILY [facility] Metoprolol Tartrate (Lopressor (Beta Delvin)) 25 mg PO QHS [facility] Nicotine (Nicoderm Cq (Pbkc)) 21 mg TRANSDERM. DAILY [facility] Last Admin: 08/11/17 11:00 Dose: 21 mg Oxycodone HCl (Oxyir) 5 mg PO Q6H PRN PRN PRN Reason: PAIN Pantoprazole Sodium (Protonix) 20 mg PO BID [facility] Last Admin: 08/11/17 11:00 Dose: 20 mg Prednisone () 40 mg PO DAILY@0800 [facility] Last Admin: 08/11/17 07:57 Dose: 40 mg Sodium Chloride () 5 - 30 ml IV UD PRN PRN Reason: SALINE FLUSH Last Admin: 08/10/17 13:51 Dose: 10 ml Trimethoprim/[facility]ulfamethox[facility] ([facility]rim Ds) [facility] Stop: 08/20/17 17:01 Last Admin: 08/11/17 12:16 Dose: 1 tablet Medical Necessity - Tobacco Use Smoking Status: Current every day smoker Assessment/Plan All Active Problems Anemia associated with acute blood loss (Acute) Acute normocytic severe anemia (Acute) Chronic respiratory failure (Acute) COPD (chronic obstructive pulmonary disease) (Acute) There is a 72-year-old gentleman with history of chronic hypoxic respiratory failure, predominantly due to COPD on 2 L of home oxygen was admitted with progressively worsening of shortness of breath over 1 week to the extent of dyspnea at rest on the day of admission. Pulse ox was 73% on nonrebreather with increased work of breathing. Patient denies fever or chills or chest pain. Labs shows WBC 11,000, ABG 7.42/44/67 at 100% FiO2 in ER at 18/8. MRSA nasal screen positive Patient had echo done in December 2016 which showed EF 55% to stage I diastolic dysfunction, trivial TR with RVSP 49 mmHg suggestive of moderate pulmonary hypertension. Mild diffuse aortic wall thickening with no aortic stenosis. Assessment and plan 1. Acute on chronic hypoxic respiratory failure, most probably from COPD exacerbation, multifocal pneumonia possible aspiration pneumonia: CT chest reviewed. Airspace consolidation in the right middle lobe and right lower lobe that raises concern for aspiration pneumonia. Patient also has severe emphysematous changes with diffuse involvement of all lobes. There is also reported spiculation of superior right upper lobe and soft tissue mass with the spiculation and distortion of medial left upper lobe. Patient said sometimes occasionally he coughs while eating but no clear evidence of aspiration. Patient needs complete evaluation by speech therapist or concern of aspiration. The patient was assessed by speech therapist and recommended pur?ed texture, nectar thick liquid with small sips and bites. Patient got more short of breath around noon time. Repeat chest x-ray reviewed which does not show much change but no worsening than previous chest x-ray of August 07. Continue bronchodilator, antibiotic, incentive spirometry and chest physiotherapy. 2. Complicated multifocal multilobar right middle lobe and right lower lobe aspiration pneumonia: Patient will need a speech evaluation after his respiratory status gets better and off BiPAP. Patient is on broad-spectrum IV antibiotic vancomycin and Zosyn. MRSA nasal screen is positive. No fever. Urinary antigens are negative. Respiratory panel negative. Pharmacist following Vanco dose and trough. 3. Multiple small distorted and spiculated mass in the superior right upper lobe measuring 0.5 x 1.6 cm and 0.6 x 1.4 cm and soft tissue mass with spiculation and distortion of parenchyma in the medial left upper lobe measuring 1 x 1.5 cm. Clinical Impression(s) from Imaging Studies Chest X-Ray 08/07/17 23:33 IMPRESSION: Worsening of aeration with increase of opacification in the right base, possible superimposed inflammation/pneumonia on moderate COPD/emphysema. Enlarging spiculated masses left and right apex on CT are not appreciated on plain films. Chest CTA 08/08/17 00:53 IMPRESSION: No demonstrated pulmonary embolism, aneurysm, leak or arterial dissection. New airspace disease in the right middle and right lower lobe likely pneumonia, possible aspiration. Distortion of airspace in the apices left greater than right appears decreased in size compared to the most recent examination, however still increased in size since 12/2016. The lesions remain indeterminate. Short-term interval follow-up examination or PET scan is advised. Arterial sclerosis, degenerative changes, osteoporosis, multilevel compression fractures, coronary artery disease, emphysema and upper abdominal findings appear stable. Microbiology Past 72 Hours 08/08/17 11:46 Urine, Random Streptococcus pneumoniae Antigen (M - Final 08/08/17 11:46 Urine, Random Legionella Antigen - Final 08/08/17 09:01 Mucosa - Nose Respiratory Panel (PCR) - Final Code Visit Inpatient E&M: 88440 Subs Hosp L3
--- NOTE | 2017-08-11 15:33 | PN_ITS ---
Subjective: Seen and examined in the morning and then afternoon In the morning, patient was on 3-4 L of oxygen. Blood pressure was on lower side 100/69 mostly secondary to antihypertensive medication. Antihypertensive medication dose decreased with holding parameters written. In afternoon, patient got more short of breath and placed on 6 L of oxygen. He also got sudden onset of left upper back pain most probably from muscle strain without fall. He had similar muscle strain in the morning. Chest x-ray ordered. Vitals/I&O's: Vital Signs Temp Pulse Resp BP Pulse Ox 98.3 F 111 H 18 123/73 H 89 08/11/17 14:45 08/11/17 14:45 08/11/17 14:45 08/11/17 14:45 08/11/17 14:45 Oxygen Flow Rate (L/min) 5 Oxygen Delivery Method Nasal Cannula Weight: 190 lb 14.725 oz Body Mass Index (BMI) 23.6 Intake and Output for Last 24 Hours 08/09/17 08/10/17 08/11/17 23:59 23:59 23:59 Intake Total 1944.0 / 1944.0 1590.1 / 1590.1 240 / 240 Output Total 1300 / 1300 750 / 750 300 / 300 Balance 644.0 / 644.0 840.1 / 840.1 -60 / -60 General: Alert, Oriented x3, Cooperative HEENT: Atraumatic, PERRLA, EOMI, Normocephalic Neck: Supple, No JVD, Negative Carotid Bruits Lungs: No rhonchi, No wheeze, Diminished Cardiovascular: Regular rate, Normal S1, Normal S2, No murmurs Abdomen: Bowel Sounds Present, Soft, Non Tender, Non-Distended Extremities: No edema, Capillary Refill Less than 3 Seconds Skin: No rashes, No breakdown Musculoskeletal: Arthritic Changes, Tenderness - Tenderness over left upper back Neurological: Cranial nerves II-XII grossly intact Psych/Mental Status: Normal Affect, Appropriate Microbiology Past 72 Hours 08/10/17 07:35 Sputum, Expectorated/Coughed Gram Stain - Final 08/10/17 07:35 Sputum, Expectorated/Coughed Respiratory Culture - Preliminary Staphylococcus aureus 08/08/17 11:46 Urine, Random Streptococcus pneumoniae Antigen (M - Final 08/08/17 11:46 Urine, Random Legionella Antigen - Final 08/08/17 09:01 Mucosa - Nose Respiratory Panel (PCR) - Final Laboratory Results 08/11/17 05:30: WBC 14.6 H, RBC 3.48 L, Hgb 11.1 L, Hct 33.8 L, MCV 97.1 H, MCH 31.9, MCHC 32.8, RDW 19.2 H, RDW Differential 66.1 H, Plt Count 314, MPV 8.7, Immature Gran % (Auto) 1.200 H, Neut % (Auto) 79.2 H, Lymph % (Auto) 8.5 L, [place] % (Auto) 10.9 H, Eos % (Auto) 0.1, Baso % (Auto) 0.1, Absolute Neuts (auto ) 11.5 H, Absolute Lymphs (auto) 1.23, Total Counted Not Reportable, Differential Comment SCAN, Anisocytosis 1+, Microcytosis 1+ 08/11/17 05:30: Sodium 138, Potassium 3.5, Chloride 99, Carbon Dioxide 29.0, Anion Gap 10, BUN 22 H, Creatinine 1.28, Estim Creat Clear Calc 64.84, Est GFR ( MDRD) Af Amer 71, Est GFR (MDRD) Non-Af 59 L, BUN/Creatinine Ratio 17.2, Glucose 81, Calcium 8.7 Current Medications Albuterol/Ipratropium (Duoneb) 3 ml INHALATION Q4H.RT [facility] Last Admin: 08/11/17 15:05 Dose: 3 ml Cyclobenzaprine HCl (Flexeril) 10 mg PO TID PRN PRN PRN Reason: MUSCLE SPASMS Last Admin: 08/09/17 21:11 Dose: 10 mg Enoxaparin Sodium (Lovenox) 40 mg SC DAILY [facility] Last Admin: 08/11/17 11:00 Dose: 40 mg Furosemide (Lasix) 10 mg PO DAILY [facility] Last Admin: 08/11/17 11:00 Dose: Not Given Sodium Chloride () 250 mls @ 15 mls/hr IV .[id number] PRN PRN Reason: SALINE FLUSH Last Admin: 08/09/17 11:04 Dose: 15 mls/hr Lisinopril (Zestril) 10 mg PO DAILY [facility] Magnesium Hydroxide (Milk Of Magnesia) 30 ml PO DAILY PRN PRN PRN Reason: Constipation Metoprolol Tartrate (Lopressor (Beta Delvin)) 25 mg PO DAILY [facility] Metoprolol Tartrate (Lopressor (Beta Delvin)) 25 mg PO QHS [facility] Nicotine (Nicoderm Cq (Pbkc)) 21 mg TRANSDERM. DAILY [facility] Last Admin: 08/11/17 11:00 Dose: 21 mg Oxycodone HCl (Oxyir) 5 mg PO Q6H PRN PRN PRN Reason: PAIN Pantoprazole Sodium (Protonix) 20 mg PO BID [facility] Last Admin: 08/11/17 11:00 Dose: 20 mg Prednisone () 40 mg PO DAILY@0800 [facility] Last Admin: 08/11/17 07:57 Dose: 40 mg Sodium Chloride () 5 - 30 ml IV UD PRN PRN Reason: SALINE FLUSH Last Admin: 08/10/17 13:51 Dose: 10 ml Trimethoprim/[facility]ulfamethox[facility] ([facility] Stop: 08/20/17 17:01 Last Admin: 08/11/17 12:16 Dose: 1 tablet Medical Necessity - Tobacco Use Smoking Status: Current every day smoker Assessment/Plan All Active Problems Anemia associated with acute blood loss (Acute) Acute normocytic severe anemia (Acute) Chronic respiratory failure (Acute) COPD (chronic obstructive pulmonary disease) (Acute) There is a 72-year-old gentleman with history of chronic hypoxic respiratory failure, predominantly due to COPD on 2 L of home oxygen was admitted with progressively worsening of shortness of breath over 1 week to the extent of dyspnea at rest on the day of admission. Pulse ox was 73% on nonrebreather with increased work of breathing. Patient denies fever or chills or chest pain. Labs shows WBC 11,000, ABG 7.42/44/67 at 100% FiO2 in ER at 18/8. MRSA nasal screen positive Patient had echo done in December 2016 which showed EF 55% to stage I diastolic dysfunction, trivial TR with RVSP 49 mmHg suggestive of moderate pulmonary hypertension. Mild diffuse aortic wall thickening with no aortic stenosis. Assessment and plan 1. Acute on chronic hypoxic respiratory failure, most probably from COPD exacerbation, multifocal pneumonia possible aspiration pneumonia: CT chest reviewed. Airspace consolidation in the right middle lobe and right lower lobe that raises concern for aspiration pneumonia. Patient also has severe emphysematous changes with diffuse involvement of all lobes. There is also reported spiculation of superior right upper lobe and soft tissue mass with the spiculation and distortion of medial left upper lobe. Patient said sometimes occasionally he coughs while eating but no clear evidence of aspiration. Patient needs complete evaluation by speech therapist or concern of aspiration. The patient was assessed by speech therapist and recommended pur?ed texture, nectar thick liquid with small sips and bites. Patient got more short of breath around noon time. Repeat chest x-ray reviewed which does not show much change but no worsening than previous chest x-ray of August 07. Continue bronchodilator, antibiotic, incentive spirometry and chest physiotherapy. 2. Complicated multifocal multilobar right middle lobe and right lower lobe aspiration pneumonia: Patient will need a speech evaluation after his respiratory status gets better and off BiPAP. Patient is on broad-spectrum IV antibiotic vancomycin and Zosyn. MRSA nasal screen is positive. No fever. Urinary antigens are negative. Respiratory panel negative. Pharmacist following Vanco dose and trough. 3. Multiple small distorted and spiculated mass in the superior right upper lobe measuring 0.5 x 1.6 cm and 0.6 x 1.4 cm and soft tissue mass with spiculation and distortion of parenchyma in the medial left upper lobe measuring 1 x 1.5 cm. Clinical Impression(s) from Imaging Studies Chest X-Ray 08/07/17 23:33 IMPRESSION: Worsening of aeration with increase of opacification in the right base, possible superimposed inflammation/pneumonia on moderate COPD/emphysema. Enlarging spiculated masses left and right apex on CT are not appreciated on plain films. Chest CTA 08/08/17 00:53 IMPRESSION: No demonstrated pulmonary embolism, aneurysm, leak or arterial dissection. New airspace disease in the right middle and right lower lobe likely pneumonia, possible aspiration. Distortion of airspace in the apices left greater than right appears decreased in size compared to the most recent examination, however still increased in size since 12/2016. The lesions remain indeterminate. Short-term interval follow-up examination or PET scan is advised. Arterial sclerosis, degenerative changes, osteoporosis, multilevel compression fractures, coronary artery disease, emphysema and upper abdominal findings appear stable. Microbiology Past 72 Hours 08/08/17 11:46 Urine, Random Streptococcus pneumoniae Antigen (M - Final 08/08/17 11:46 Urine, Random Legionella Antigen - Final 08/08/17 09:01 Mucosa - Nose Respiratory Panel (PCR) - Final Code Visit Inpatient E&M: 78118 Subs Hosp L3
[2017-08-11] MEDS: Metoprolol Tartrate 25 MG Tablet PO ×2 (17:04→21:00)
--- NOTE | 2017-08-11 22:33 | CPS ---
PATIENT INFORMED RT THAT NURSING REMOVED BIPAP AND PLACED PATIENT BACK ON [place] AT 3 LPM. PATIENT REFUSING BIPAP AT THIS TIME. PATIENT INFORMED TO NOTIFY STAFF IF SHORT OF BREATH.
[2017-08-12] VITALS (16 sets, daily range): BP systolic 112–149; BP diastolic 67–85; PULSE 69–99; RESP 18–20; TEMP 36.5–37.1; O2SAT 88–94
[2017-08-12] MEDS: Ipratropium/Albuterol Sulfate 3 ML AMPUL.NEB INHALATION ×3 (03:29→11:00)
--- NOTE | 2017-08-12 03:31 | CPS ---
PATIENT REFUSING BIPAP AT TIME OF VISIT.
[2017-08-12 07:22] LABS: Absolute Neutrophil Count 8.4 X10^3/uL (2.0-7.7); Basophil# 0.02 X10^3/uL; Basophil% 0.2 % (0-1); Eosinophil# 0.03 X10^3/uL; Eosinophils% 0.3 % (0-5); Hematocrit 31.2 % (40-54); Hemoglobin 10.1 g/dl (13.0-16.5); Lymphocyte % 10.8 % (19-41); Mean Corp Hgb Conc 32.4 g/gl (32-36); Mean Corpuscular Hgb 31.2 pg (27.0-32.0); Mean Corpuscular Volume 96.3 fL (80-94); Mean Platelet Vol. 8.8 fl (6.2-12.0); Monocyte# 1.38 X10^3/uL; Monocyte% 12.4 % (0-10); Neutrophil # 8.43 X10^3/uL (2.7-7.7); Neutrophil % 75.5 % (47-70); Platelet Count 241 K/mm3 (150-450); Red Blood Count 3.24 M/mm3 (4.6-6.2); White Blood Count 11.2 K/mm3 (4.4-11.0)
[2017-08-12 07:23] LABS: Differential Indicated SCAN CRITERIA MET; POSITIVE COUNT NO; POSITIVE DIFFERENTIAL NO; POSITIVE MORPHOLOGY YES
[2017-08-12 07:32] LABS: Anion Gap 7 (5-15); BUN 17 mg/dL (7-18); BUN/Creat Ratio 14.5 RATIO (10-20); Calcium,Total 8.1 mg/dL (8.5-10.1); Chloride 99 mmol/L (98-107); Creatinine, Serum 1.17 mg/dL (0.70-1.30); EST Glomerular Filtration Rate 65 mL/min (>60); Est Glom Filt Rate - Afr Amer 79 mL/min (>60); Estimated Creatinine Clearance 70.61 ml/min; Glucose 76 mg/dL (74-106); Potassium 3.3 mmol/L (3.5-5.1); Sodium Level 137 mmol/L (136-145)
[2017-08-12 07:59] LABS: Anisocytosis RARE; Platelet Estimate ADEQUATE (ADEQ)
[2017-08-12 08:00] LABS: Microcytosis RARE
--- NOTE | 2017-08-12 08:53 | PCM.PROGNOTE ---
Subjective: The patient was seen and examined at the bedside this morning. Events from the last 24 hours have been reviewed. The patient is currently afebrile, hemodynamically stable and maintaining appropriate oxygen saturations on 3 L/min via nasal cannula. The patient did experience an acute episode of decompensation yesterday afternoon, during which time, the patient had to be placed on BiPAP therapy. However, plain film chest imaging revealed no significant interval change. The patient was noted to have refused BiPAP overnight. Breathing quality is improved when compared to yesterday. Objective: The patient's most recent lab work, culture data and imaging studies have all been personally reviewed. A CTA chest was obtained which revealed no evidence for pulmonary embolism. However, there was evidence of new airspace disease in the right middle and right lower lobe, along with spiculated nodules identified in the right upper lobe and medial left upper lobe. Strep and urine Legionella antigens were negative. Respiratory viral panel was negative. Sputum culture revealed 3+ MRSA. - Physical Exam General: Alert, Cooperative, No apparent distress, - - is present at the bedside HEENT: Atraumatic, PERRLA, Normocephalic Oral: No Gingival or Mucosal Lesions/ Ulcerations Neck: Supple, No Nodes, Trachea Midline Lungs: - - Globally diminished air movement bilaterally without appreciable wheezes, rales or rhonchi. Cardiovascular: Regular rate, Regular Rhythm, Normal S1, Normal S2, No murmurs Abdomen: Bowel Sounds Present, Soft, Non Tender, Non-Distended Extremities: No clubbing, No cyanosis, Edema Skin: No breakdown Musculoskeletal: No Tenderness to Palpation of Joints or Extremities Lymphatic: No Cervical, Supraclavicular, or Inguinal Adenopathy Neurological: Neuro grossly intact Psych/Mental Status: Normal Affect, Appropriate Vital Signs Temp Pulse Resp BP Pulse Ox 97.7 F L 97 20 H 139/85 H 91 08/12/17 06:44 08/12/17 07:47 08/12/17 06:44 08/12/17 06:44 08/12/17 06:44 Oxygen Flow Rate (L/min) 3 Oxygen Delivery Method Nasal Cannula Weight: 190 lb 0.615 oz Body Mass Index (BMI) 23.6 Intake and Output for Last 24 Hours 08/10/17 08/11/17 08/12/17 23:59 23:59 23:59 Intake Total 1590.1 / 1590.1 700 / 700 230 / 230 Output Total 750 / 750 300 / 300 Balance 840.1 / 840.1 400 / 400 230 / 230 Microbiology Past 72 Hours 08/10/17 07:35 Gram Stain - Final Sputum, Expectorated/Coughed Respiratory Culture - Final Meth. resistant Staph. aureus Laboratory Tests Past 24 Hrs 08/12/17 08/12/17 06:18 06:18 WBC 11.2 H RBC 3.24 L Hgb 10.1 L Hct 31.2 L MCV 96.3 H MCH 31.2 MCHC 32.4 RDW 19.0 H RDW Differential 67.0 H Plt Count 241 MPV 8.8 Immature Gran % (Auto) 0.800 Neut % (Auto) 75.5 H Lymph % (Auto) 10.8 L [place] % (Auto) 12.4 H Eos % (Auto) 0.3 Baso % (Auto) 0.2 Absolute Neuts (auto) 8.4 H Absolute Lymphs (auto) 1.20 Total Counted Not Reportable Platelet Estimate ADEQUATE Anisocytosis RARE Microcytosis RARE Sodium 137 Potassium 3.3 L Chloride 99 Carbon Dioxide 31.0 Anion Gap 7 BUN 17 Creatinine 1.17 Estim Creat Clear Calc 70.61 Est GFR (MDRD) Af Amer 79 Est GFR (MDRD) Non-Af 65 BUN/Creatinine Ratio 14.5 Glucose 76 Calcium 8.1 L Clinical Impression(s) from Imaging Studies Chest X-Ray 08/07/17 23:33 IMPRESSION: Worsening of aeration with increase of opacification in the right base, possible superimposed inflammation/pneumonia on moderate COPD/emphysema. Enlarging spiculated masses left and right apex on CT are not appreciated on plain films. Electronically Signed: Marianne Verma MD at 0:11 EDT , Service support , Chest CTA 08/08/17 00:53 IMPRESSION: No demonstrated pulmonary embolism, aneurysm, leak or arterial dissection. New airspace disease in the right middle and right lower lobe likely pneumonia, possible aspiration. Distortion of airspace in the apices left greater than right appears decreased in size compared to the most recent examination, however still increased in size since 12/2016. The lesions remain indeterminate. Short-term interval follow-up examination or PET scan is advised. Arterial sclerosis, degenerative changes, osteoporosis, multilevel compression fractures, coronary artery disease, emphysema and upper abdominal findings appear stable. Electronically Signed: Marianne Verma MD at 1:54 EDT , Service support , Chest X-Ray 08/11/17 14:14 IMPRESSION: Improvement in the right middle lobe and right lower lobe pneumonia. Electronically Signed: Roshan Valenzuela MD at 16:58 EDT , Service support , Medical Necessity - Tobacco Use Smoking Status: Current every day smoker Assessment/Plan All Active Problems Anemia associated with acute blood loss (Acute) Acute normocytic severe anemia (Acute) Chronic respiratory failure (Acute) COPD (chronic obstructive pulmonary disease) (Acute) RECOMMENDATIONS: 1. Continue antibiotics, steroids and bronchodilators. Plan to complete a 10 day treatment course. 2. Continue BiPAP empirically with naps and nightly. Wean supplemental oxygen as tolerated. 3. Encourage incentive spirometer use and mobilize patient as tolerated. 4. Perform walking oximetry study prior to consideration for discharge from the hospital. 5. Recommend outpatient pulmonary follow-up and longitudinal chest imaging studies. 6. At discharge, recommend the following steroid taper: 40 mg daily ?3 days, 20 mg daily ?3 days, 10 mg daily ?3 days. 7. Smoking cessation is advisable. IMPRESSIONS: 1. Acute on chronic respiratory failure secondary to COPD with exacerbation due to MRSA pneumonia Plan to continue current supportive measures with scheduled bronchodilators, antibiotics and steroids. Diet has been advanced per speech therapy recommendations. Continue to wean supplemental oxygen as tolerated. Recommend continuing empiric BiPAP therapy with naps and nightly. Recommend completing a 10 day course of antibiotics. Patient will require a prolonged steroid taper at discharge, as noted above. Perform walking oximetry study prior to consideration for discharge from the hospital. Encourage incentive spirometer use and mobilize patient as tolerated. Please ensure that the patient has follow-up in the pulmonary medicine clinic within 2 weeks of his discharge from the hospital. 2. Abnormal chest imaging The patient does have evidence of spiculated nodules on CTA chest, which will need to be followed up upon longitudinally in the future. The patient undoubtedly needs to follow-up in the pulmonary medicine clinic after his discharge from the hospital. 3. Heart failure with preserved ejection fraction/pulmonary hypertension Continue current medical management with beta-diana, diuretic and STEVIE inhibitor. 4. Continuous tobacco dependence/GERD/hypertension Complicates care, management, recovery and prognosis. Continue work with physical therapy. Smoking cessation is strongly advisable. Continue nicotine replacement therapy while admitted to the hospital. This note was generated with Swivel dictation software. It may contain incorrect words, spelling, and punctuation that were not noted in checking the note before signing. Code Visit Inpatient E&M: 21785 Subs Hosp L2
--- NOTE | 2017-08-12 08:56 | PN_ITS ---
Subjective: The patient was seen and examined at the bedside this morning. Events from the last 24 hours have been reviewed. The patient is currently afebrile, hemodynamically stable and maintaining appropriate oxygen saturations on 3 L/ min via nasal cannula. The patient did experience an acute episode of decompensation yesterday afternoon, during which time, the patient had to be placed on BiPAP therapy. However, plain film chest imaging revealed no significant interval change. The patient was noted to have refused BiPAP overnight. Breathing quality is improved when compared to yesterday. Objective: The patient's most recent lab work, culture data and imaging studies have all been personally reviewed. A CTA chest was obtained which revealed no evidence for pulmonary embolism. However, there was evidence of new airspace disease in the right middle and right lower lobe, along with spiculated nodules identified in the right upper lobe and medial left upper lobe. Strep and urine Legionella antigens were negative. Respiratory viral panel was negative. Sputum culture revealed 3+ MRSA. - Physical Exam General: Alert, Cooperative, No apparent distress, - - is present at the bedside HEENT: Atraumatic, PERRLA, Normocephalic Oral: No Gingival or Mucosal Lesions/ Ulcerations Neck: Supple, No Nodes, Trachea Midline Lungs: - - Globally diminished air movement bilaterally without appreciable wheezes, rales or rhonchi. Cardiovascular: Regular rate, Regular Rhythm, Normal S1, Normal S2, No murmurs Abdomen: Bowel Sounds Present, Soft, Non Tender, Non-Distended Extremities: No clubbing, No cyanosis, Edema Skin: No breakdown Musculoskeletal: No Tenderness to Palpation of Joints or Extremities Lymphatic: No Cervical, Supraclavicular, or Inguinal Adenopathy Neurological: Neuro grossly intact Psych/Mental Status: Normal Affect, Appropriate Vital Signs Temp Pulse Resp BP Pulse Ox 97.7 F L 97 20 H 139/85 H 91 08/12/17 06:44 08/12/17 07:47 08/12/17 06:44 08/12/17 06:44 08/12/17 06:44 Oxygen Flow Rate (L/min) 3 Oxygen Delivery Method Nasal Cannula Weight: 190 lb 0.615 oz Body Mass Index (BMI) 23.6 Intake and Output for Last 24 Hours 08/10/17 08/11/17 08/12/17 23:59 23:59 23:59 Intake Total 1590.1 / 1590.1 700 / 700 230 / 230 Output Total 750 / 750 300 / 300 Balance 840.1 / 840.1 400 / 400 230 / 230 Microbiology Past 72 Hours 08/10/17 07:35 Gram Stain - Final Sputum, Expectorated/Coughed Respiratory Culture - Final Meth. resistant Staph. aureus Laboratory Tests Past 24 Hrs 08/12/17 08/12/17 06:18 06:18 WBC 11.2 H RBC 3.24 L Hgb 10.1 L Hct 31.2 L MCV 96.3 H MCH 31.2 MCHC 32.4 RDW 19.0 H RDW Differential 67.0 H Plt Count 241 MPV 8.8 Immature Gran % (Auto) 0.800 Neut % (Auto) 75.5 H Lymph % (Auto) 10.8 L [place] % (Auto) 12.4 H Eos % (Auto) 0.3 Baso % (Auto) 0.2 Absolute Neuts (auto) 8.4 H Absolute Lymphs (auto) 1.20 Total Counted Not Reportable Platelet Estimate ADEQUATE Anisocytosis RARE Microcytosis RARE Sodium 137 Potassium 3.3 L Chloride 99 Carbon Dioxide 31.0 Anion Gap 7 BUN 17 Creatinine 1.17 Estim Creat Clear Calc 70.61 Est GFR (MDRD) Af Amer 79 Est GFR (MDRD) Non-Af 65 BUN/Creatinine Ratio 14.5 Glucose 76 Calcium 8.1 L Clinical Impression(s) from Imaging Studies Chest X-Ray 08/07/17 23:33 IMPRESSION: Worsening of aeration with increase of opacification in the right base, possible superimposed inflammation/pneumonia on moderate COPD/emphysema. Enlarging spiculated masses left and right apex on CT are not appreciated on plain films. Electronically Signed: Marianne Verma MD at 0:11 EDT , Service support , Chest CTA 08/08/17 00:53 IMPRESSION: No demonstrated pulmonary embolism, aneurysm, leak or arterial dissection. New airspace disease in the right middle and right lower lobe likely pneumonia, possible aspiration. Distortion of airspace in the apices left greater than right appears decreased in size compared to the most recent examination, however still increased in size since 12/2016. The lesions remain indeterminate. Short-term interval follow-up examination or PET scan is advised. Arterial sclerosis, degenerative changes, osteoporosis, multilevel compression fractures, coronary artery disease, emphysema and upper abdominal findings appear stable. Electronically Signed: Marianne Verma MD at 1:54 EDT , Service support , Chest X-Ray 08/11/17 14:14 IMPRESSION: Improvement in the right middle lobe and right lower lobe pneumonia. Electronically Signed: Roshan Valenzuela MD at 16:58 EDT , Service support , Medical Necessity - Tobacco Use Smoking Status: Current every day smoker Assessment/Plan All Active Problems Anemia associated with acute blood loss (Acute) Acute normocytic severe anemia (Acute) Chronic respiratory failure (Acute) COPD (chronic obstructive pulmonary disease) (Acute) RECOMMENDATIONS: 1. Continue antibiotics, steroids and bronchodilators. Plan to complete a 10 day treatment course. 2. Continue BiPAP empirically with naps and nightly. Wean supplemental oxygen as tolerated. 3. Encourage incentive spirometer use and mobilize patient as tolerated. 4. Perform walking oximetry study prior to consideration for discharge from the hospital. 5. Recommend outpatient pulmonary follow-up and longitudinal chest imaging studies. 6. At discharge, recommend the following steroid taper: 40 mg daily ?3 days, 20 mg daily ?3 days, 10 mg daily ?3 days. 7. Smoking cessation is advisable. IMPRESSIONS: 1. Acute on chronic respiratory failure secondary to COPD with exacerbation due to MRSA pneumonia Plan to continue current supportive measures with scheduled bronchodilators, antibiotics and steroids. Diet has been advanced per speech therapy recommendations. Continue to wean supplemental oxygen as tolerated. Recommend continuing empiric BiPAP therapy with naps and nightly. Recommend completing a 10 day course of antibiotics. Patient will require a prolonged steroid taper at discharge, as noted above. Perform walking oximetry study prior to consideration for discharge from the hospital. Encourage incentive spirometer use and mobilize patient as tolerated. Please ensure that the patient has follow-up in the pulmonary medicine clinic within 2 weeks of his discharge from the hospital. 2. Abnormal chest imaging The patient does have evidence of spiculated nodules on CTA chest, which will need to be followed up upon longitudinally in the future. The patient undoubtedly needs to follow-up in the pulmonary medicine clinic after his discharge from the hospital. 3. Heart failure with preserved ejection fraction/pulmonary hypertension Continue current medical management with beta-diana, diuretic and STEVIE inhibitor. 4. Continuous tobacco dependence/GERD/hypertension Complicates care, management, recovery and prognosis. Continue work with physical therapy. Smoking cessation is strongly advisable. Continue nicotine replacement therapy while admitted to the hospital. This note was generated with [employer] dictation software. It may contain incorrect words, spelling, and punctuation that were not noted in checking the note before signing. Code Visit Inpatient E&M: 73856 Subs Hosp L2
[2017-08-12] MEDS: Lisinopril 10 MG Tablet PO (09:33)
[2017-08-12] MEDS: Furosemide 20 MG Tablet 10 MG PO (09:33)
[2017-08-12] MEDS: Pantoprazole Sodium 20 MG Tablet PO (09:33)
[2017-08-12] MEDS: Metoprolol Tartrate 25 MG Tablet PO (09:34)
[2017-08-12] MEDS: Smz/Tmp Ds Tablet 1 TABLET PO ×2 (09:36→15:47)
[2017-08-12] MEDS: predniSONE 20 MG Tablet 40 MG PO (09:36)
[2017-08-12] MEDS: Enoxaparin 40 MG/0.4 ML Syringe SC (09:36)
[2017-08-12] MEDS: Mupirocin Ointment 22gm Tube 1 APPLIC NASAL (10:47)
--- NOTE | 2017-08-12 13:13 | PCM.DC ---
- Discharge Diagnoses Current Active Problems: Current Active and Chronic Problems Smoking (Chronic) Additional Instructions: Get a pulse-ox machine to check your oxygen level and update your primary care doctor. Allergies/Adverse Reactions: Allergies No Known Allergies Allergy (Verified 08/07/17 23:34) Medications to take at Discharge Amlodipine Besylate 5 mg PO DAILY 09/22/13 Furosemide 10 mg PO DAILY 09/22/13 Lisinopril 20 mg PO BID 09/22/13 Metoprolol Tartrate 50 mg PO DAILY 09/22/13 Albuterol IH (ProAir) [Proair Hfa] 2 puff INHALATION Q4H PRN PRN 01/04/17 Tiotropium [place] [Spiriva 18 MCG] 1 puff INHALATION DAILY 01/04/17 Nitroglycerin 0.4 mg SL DAILY 02/17/17 Omeprazole [Prilosec] 20 mg PO BID 02/17/17 Oxycodone HCl/Acetaminophen [Percocet 5-325] 1 tablet PO Q6H PRN PRN 3 Days #12 tablet 08/01/17 Cyclobenzaprine [Flexeril] 10 mg PO TID PRN PRN 08/07/17 Fluticasone/Salmeterol [Advair 250/50 Mcg Diskus] 1 puff INHALATION DAILY 08/07/17 Metoprolol Tartrate 25 mg PO QHS 08/07/17 Mupirocin [Bactroban] 1 applic NASAL BID tube 08/12/17 Prednisone 10 mg PO UD #9 tab 08/12/17 Smz/Tmp Ds [Bactrim Ds] 1 tab PO BIDCM #18 tab 08/12/17 The following prescriptions were given: Prednisone 10 mg PO UD #9 tab Smz/Tmp Ds [Bactrim Ds] 1 tab PO BIDCM #18 tab Primary Care Physician: Mitch Kurtz MD [Primary Care Provider] - Please follow up with your Primary Care Physician in: 5-10 days Test Results: Test results from this visit will be discussed in further detail at your follow-up appointment, if applicable. Please Follow Up With: Cecil Patiño DO When: 5-10 days Proposed Discharge Date: 08/12/17
--- NOTE | 2017-08-12 13:18 | DCINST_ITS ---
- Discharge Diagnoses Current Active Problems: Current Active and Chronic Problems Smoking (Chronic) Additional Instructions: Get a pulse-ox machine to check your oxygen level and update your primary care doctor. Allergies/Adverse Reactions: Allergies No Known Allergies Allergy (Verified 08/07/17 23:34) Medications to take at Discharge Amlodipine Besylate 5 mg PO DAILY 09/22/13 Furosemide 10 mg PO DAILY 09/22/13 Lisinopril 20 mg PO BID 09/22/13 Metoprolol Tartrate 50 mg PO DAILY 09/22/13 Albuterol IH (ProAir) [Proair Hfa] 2 puff INHALATION Q4H PRN PRN 01/04/17 Tiotropium [place] [Spiriva 18 MCG] 1 puff INHALATION DAILY 01/04/17 Nitroglycerin 0.4 mg SL DAILY 02/17/17 Omeprazole [Prilosec] 20 mg PO BID 02/17/17 Oxycodone HCl/Acetaminophen [Percocet 5-325] 1 tablet PO Q6H PRN PRN 3 Days #12 tablet 08/01/17 Cyclobenzaprine [Flexeril] 10 mg PO TID PRN PRN 08/07/17 Fluticasone/Salmeterol [Advair 250/50 Mcg Diskus] 1 puff INHALATION DAILY Metoprolol Tartrate 25 mg PO QHS 08/07/17 Mupirocin [Bactroban] 1 applic NASAL BID tube 08/12/17 Prednisone 10 mg PO UD #9 tab 08/12/17 Smz/Tmp Ds [Bactrim Ds] 1 tab PO BIDCM #18 tab 08/12/17 The following prescriptions were given: Prednisone 10 mg PO UD #9 tab Smz/Tmp Ds [Bactrim Ds] 1 tab PO BIDCM #18 tab Primary Care Physician: Mitch Kurtz MD [Primary Care Provider] - Please follow up with your Primary Care Physician in: 5-10 days Test Results: Test results from this visit will be discussed in further detail at your follow- up appointment, if applicable. Please Follow Up With: Cecil Patiño DO When: 5-10 days Proposed Discharge Date: 08/12/17
--- NOTE | 2017-08-12 13:18 | PCM.DC.SUM ---
Discharge Date and Diagnosis Date of Admission: 08/08/17 Date of Discharge: 08/12/17 - Primary Discharge Diagnosis Acute hypoxic respiratory failure secondary to COPD. - Secondary Discharge Diagnosis Chronic Problems Smoking (Chronic) Barretts esophagus (Chronic) History of peptic ulcer disease (Chronic) Pulmonary embolism (Chronic) On Xarelto 20 mg daily Hypertension (Chronic) Hospital Course and Treatment Operations: None Summary of Care Provided: The patient is a 72 year old male patient with a recent history of pulmonary embolism who is no longer anticoagulated due to anemia presented to the ER with shortness of breath. CT of his chest was negative for dissection it was also negative for PE. Patient had a clinical and radiographic evidence of right middle lobe and right lower lobe pneumonia. Due to severity of her condition he was initially admitted to the ICU where he received broad-spectrum antibiotics with vancomycin and Zosyn; and supportive therapy of noninvasive positive pressure ventilation with BiPAP. Legionella antigen, respiratory panel and strep pneumonia antigen was negative. However a sputum Gram stain showed MRSA. Patient was appropriately placed on isolation. As patient improved he was transferred from the intensive care unit to progressive care unit. Patient's antibiotics was the de-escalated. His prednisone therapy was also adjusted as he made clinical improvement which was confirmed radiographically. On the day of admission on 4 L of oxygen at rest patient oxygen saturation was 92%; and with ambulation his oxygen saturation was 88% on 6 L nasal cannula. Patient was instructed to increase his home oxygen demand accordingly and he was instructed to acquire a pulse ox machine. 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 His antibiotics was the de-escalated to Bactrim which he will continue for 9 more days of bactrim upon discharge. Patient was was discharged on a steroid taper. Because patient had a mass on previous CT scan, patient was instructed to follow up with pulmonology for longitudinal monitoring. On the day of admission patient was seen in physical examination is as below: HEENT atraumatic normocephalic Chest lungs are with decreased Abdomen: Nontender nondistended bowel sounds present Extremities: No cyanosis no edema Skin no rashes neurologic alert and oriented. Patient was instructed to come to the emergency department if his shortness of breath worsens and to follow up with primary care and pulmonology. Was instructed to quit smoking. [] Call your doctor if you observe: Fever of 101 or Higher, - - Increasing shortness of breath above baseline. Home Medications: Medications to take at Discharge Amlodipine Besylate 5 mg PO DAILY 09/22/13 Furosemide 10 mg PO DAILY 09/22/13 Lisinopril 20 mg PO BID 09/22/13 Metoprolol Tartrate 50 mg PO DAILY 09/22/13 Albuterol IH (ProAir) [Proair Hfa] 2 puff INHALATION Q4H PRN PRN 01/04/17 Tiotropium [place] [Spiriva 18 MCG] 1 puff INHALATION DAILY 01/04/17 Nitroglycerin 0.4 mg SL DAILY 02/17/17 Omeprazole [Prilosec] 20 mg PO BID 02/17/17 Oxycodone HCl/Acetaminophen [Percocet 5-325] 1 tablet PO Q6H PRN PRN 3 Days #12 tablet 08/01/17 Cyclobenzaprine [Flexeril] 10 mg PO TID PRN PRN 08/07/17 Fluticasone/Salmeterol [Advair 250/50 Mcg Diskus] 1 puff INHALATION DAILY 08/07/17 Metoprolol Tartrate 25 mg PO QHS 08/07/17 Mupirocin [Bactroban] 1 applic NASAL BID tube 08/12/17 Prednisone 10 mg PO UD #9 tab 08/12/17 Smz/Tmp Ds [Bactrim Ds] 1 tab PO BIDCM #18 tab 08/12/17 Following Prescrptions Were Given to Patient: Prednisone 10 mg PO UD #9 tab Smz/Tmp Ds [Bactrim Ds] 1 tab PO BIDCM #18 tab Primary Care Physician: Mitch Kurtz MD [Primary Care Provider] - Please follow up with your Primary Care Physician in: 5-10 days Please Follow Up With: Cecil Patiño DO When: 5-10 days Disposition: Home Minutes spent on discharge:: 25 Patient Condition:: Fair Medical Necessity - Tobacco Use Smoking Status: Current every day smoker Meaningful Use Info Meaningful Use Diagnoses (Choose all that apply): None applicable
--- NOTE | 2017-08-16 08:29 | CASEMGMT ---
TRAN BAUTISTA Discharge Follow-up Phone Call: MARJORIE: Monica Strata: 4 Call Date: 08/14/17 Discharge Date: 08/12/17 Time of Call: 1130 Duration: 7 minutes ~ Admitting Diagnosis: Acute on chronic hypoxic respiratory failure, COPD RN CM spoke with pt's regarding the patient's status post discharge. Pt's reports that her has been doing well since discharge. He has been using his incentive spirometer 3 times each morning, afternoon and evening which is effective in facilitating a productive cough. He still has occasional back pains which she is giving him a muscle relaxer as she was instructed and has been effective. They obtained a pulse oximeter as instructed and have been monitoring his pulse ox. She states he has been running 84-89% with his O2 on at 4-5l/min. She states he has been using his O2 concentrator which only goes up to 5l/min. This CM asked if the PO has ever been above 90% and she stated no. She states he has not had any increased shortness of breath but she does at times sit next to him and assistant football coach him to take deep breaths. She has scheduled follow-up appointments with Dr. Kurtz for this Friday 08/18 at 8AM and with Cathy Butler NP on Monday 08/21 at 9:15AM. She was able to obtain the patients prescriptions without difficulty. Reviewed EMR and noted pt's PO was 88-93% on 4-6l/min during his admission. This CM expressed concern re: low PO readings and recommended she call Dr. Patiño's office to report these readings. stated she would call Dr. Patiño's office as soon as we hung up. This CM's contact name and phone number provided. Mathew Ventura RN
== END 2017-08-12 15:54 | disposition home or self-care (01) | DRG 189 ==
LOC: ED 08-08 00:10 → ICU 08-08 01:30 → PCU 08-10 16:47
PROVIDERS: Internal Medicine; Internal Medicine Critical Care Medicine; Admitting Provider Family Medicine; Emergency Provider Emergency Medicine; Family Provider Family Medicine; PCP Family Medicine; Visit Provider Hospitalist
DX: J96.21 Acute and chronic respiratory failure with hypoxia (principal); J15.212 Pneumonia due to Methicillin resistant Staphylococcus aureus; I50.30 Unspecified diastolic (congestive) heart failure; J44.0 Chronic obstructive pulmonary disease with (acute) lower respiratory infection; J44.1 Chronic obstructive pulmonary disease with (acute) exacerbation; I11.0 Hypertensive heart disease with heart failure; F17.210 Nicotine dependence, cigarettes, uncomplicated; I27.20 Pulmonary hypertension, unspecified; D64.9 Anemia, unspecified; Z86.711 Personal history of pulmonary embolism; K22.70 Barrett's esophagus without dysplasia; Z87.11 Personal history of peptic ulcer disease; Z99.81 Dependence on supplemental oxygen
CPT/HCPCS: 36415; 36600; 71045; 71275; 80048; 80053; 80202; 82803; 83880; 84484; 85025; 85379; 85610; 87070; 87186; 87205; 87449; 87633; 87641; 92507; 92526; 92610; 93005; 94002; 94003; 94640; 97110; 97162; 97166; 97530; 97535; 99285; 99406; J7030; J7040; J7050; Q9967; A4216

== ENCOUNTER → 2017-09-18 08:25 | Outpatient (CLI) | payer MEDICARE, SELFPAY | PROVIDERS: Family Provider Family Medicine; PCP Family Medicine | DX: R91.1 Solitary pulmonary nodule (principal) | CPT/HCPCS: 78815; A4216 ==

== ENCOUNTER 2017-09-24 08:43 | Inpatient (IN) | payer MEDICARE, SELFPAY ==
[2017-09-24] VITALS (26 sets, daily range): BP systolic 103–148; BP diastolic 63–91; PULSE 86–131; RESP 12–36; TEMP 36.6–36.9; O2SAT 87–99; BMI 23.1; BMI 21.5; BMI 21.6
--- NOTE | 2017-09-24 09:11 | ED.DCSUM_ITS ---
- ER Visit Summary Date of Service: 09/24/17 Chief Complaint: Shortness of breath History of Present Illness: The patient is a 72 M who presents with shortness of breath progressive for the past couple days. Earlier this year the patient was diagnosed with a pulmonary embolism and was placed on Xarelto. This was stopped due to anemia/blood loss. In August he presented with pneumonia and was in the ICU. Sputum production at that time grew out MRSA. He was discharged home on Bactrim. Imaging at that time had demonstrated lung mass which subsequent PET scan 5 days ago was obtained. That appears to be consistent with a neoplasm. Patient states that since that PET scan he has had diarrhea. He states that his abdomen is hurting him. He reports that his shortness of breath began a day or 2 later has progressively gotten worse. He states that last night he could not sleep and he stayed up all night walking the floor. He normally wears 4 L home oxygen. He presented to triage at 87%. He notes his legs are swollen but attributes that to being on his legs all night. He denies a history of CHF. No reported fevers. He denies any change in his cough or sputum production. Physical Examination: 97.8 heart rate 131 blood pressure 145/81 respirations are 36 pulse ox 87% on 4 L Gen: Well-nourished well-developed Head: Normocephalic atraumatic Eyes: Perrl EOMI ENT: TMs clear no rhinorrhea dry mucous membranes Neck: Supple no lymphadenopathy no JVD nontender CVS: Regular rate tachycardia rhythm no murmurs normal S1-S2 Respiratory: Patient is barrel chested. He is tachypneic with accessory muscle use. He has diminished breath sounds with wheezing. Chest nontender Abdomen: Soft nontender nondistended normal bowel sounds no masses Back: Nontender Extremity: Nontender 1+ pitting edema bilaterally Skin: Normal color no rash Neuro: alert orientated ?3 CN II-XII intact normal strength sensation reflexes gait cerebellar Psych: Normal affect normal mood Emergency Department Course and Treatment: Patient was placed on BiPAP and received IV fluids. Also gave him calcium gluconate, magnesium, Solu-Medrol, aerosols, vancomycin, Zosyn. White count 11.9 hemoglobin 11.5. Platelets are 338. Calcium is at 5.5. Magnesium less than 0.03. Nitric peptide 57.7. Lactic acid 2.3. Troponin less than 0.013. EKG sinus at a rate of 116 with left bundle branch block. CT of the chest did not demonstrate pulmonary embolism but did reveal bibasilar infiltrates. Abdomen pelvis demonstrates changes consistent with an enteritis. Our plan is admission into the hospital. Impression: 1. Bilateral pneumonia 2. Hypomagnesemia 3. Hypocalcemia 4. Enteritis 5. Respiratory failure 6. Lung mass/cancer 7. Critical care time 35 minutes This note was generated with [employer] dictation software. It may contain incorrect words, spelling, and punctuation that were not noted in review of the chart prior to signing ED Disposition - Plan for ED Patient: Chief Complaint: Shortness of Breath Referrals: Mitch Kurtz MD [Primary Care Provider] -
[2017-09-24] MEDS: Albuterol 2.5 MG/3 ML VIAL.NEB. INHALATION ×2 (09:14)
[2017-09-24] MEDS: Ipratropium/Albuterol Sulfate 3 ML AMPUL.NEB INHALATION ×4 (09:15→22:47)
[2017-09-24 09:16] LABS: Absolute Lymphocyte Count 2.16 X10^3/ul (0.83-4.51); Absolute Neutrophil Count 8.1 X10^3/uL (2.0-7.7); Basophil# 0.03 X10^3/uL; Basophil% 0.3 % (0-1); Eosinophil# 0.05 X10^3/uL; Eosinophils% 0.4 % (0-5); Hematocrit 32.9 % (40-54); Hemoglobin 11.5 g/dl (13.0-16.5); Lymphocyte # 2.16 X10^3/ul (4.0); Lymphocyte % 18.1 % (19-41); Mean Corpuscular Hgb 33.5 pg (27.0-32.0); Mean Corpuscular Volume 95.9 fL (80-94); Mean Platelet Vol. 8.5 fl (6.2-12.0); Monocyte# 1.46 X10^3/uL; Monocyte% 12.2 % (0-10); Neutrophil # 8.06 X10^3/uL (2.7-7.7); Neutrophil % 67.5 % (47-70); POSITIVE COUNT NO; POSITIVE DIFFERENTIAL NO; POSITIVE MORPHOLOGY NO; Platelet Count 338 K/mm3 (150-450); RBC Distribution Width CV 13.2 % (11.6-14.6); RBC Distribution Width SD 43.8 fl (35.1-43.9); Red Blood Count 3.43 M/mm3 (4.6-6.2); White Blood Count 11.9 K/mm3 (4.4-11.0)
[2017-09-24] MEDS: 0.9% Normal Saline 1,000 ML 150 ML IV (09:20)
[2017-09-24] MEDS: MethylPREDNISolone 125 MG/2 ML Vial IV (09:20)
[2017-09-24 09:35] LABS: Lactic Acid 2.3 mmol/L (0.4-2.0)
--- NOTE | 2017-09-24 09:35 | NURSING ---
lab called: lactic acid: 2.3 and calcium: 5.[address] kelley
[2017-09-24 09:37] LABS: ALB/GLOB Ratio 0.5 RATIO (0.9-2.4); AST(SGOT) 20 U/L (15-37); Alanine Aminotransfer ALT/SGPT 13 U/L (16-61); Albumin, Serum 2.6 g/dL (3.2-5.0); Alkaline Phosphatase 174 U/L (45-117); Anion Gap 9 (5-15); BUN 12 mg/dL (7-18); Calcium,Total 5.5 mg/dL (8.5-10.1); Chloride 93 mmol/L (98-107); EST Glomerular Filtration Rate 63 mL/min (>60); Est Glom Filt Rate - Afr Amer 77 mL/min (>60); Estimated Creatinine Clearance 68.83 ml/min; Globulin 5.6 g/dL (2.2-4.2); Glucose 93 mg/dL (74-106); Lipase 116 U/L (73-393); Potassium 3.4 mmol/L (3.5-5.1); Protein, Total 8.2 g/dL (6.4-8.2); Sodium Level 129 mmol/L (136-145)
[2017-09-24 09:39] LABS: International Normalized Ratio 1.1; Prothrombin Time (Protime)PT. 13.7 SECONDS (11.7-14.9)
[2017-09-24 09:40] LABS: Partial Thromboplast Time 35.8 Seconds (24.1-36.2)
[2017-09-24 09:44] LABS: BNP,B-Type NATRIURETIC PEPTIDE 57.7 pg/mL (0-100)
[2017-09-24 10:36] LABS: Magnesium < 0.3 mg/dL (1.6-2.6); Phosphorus 3.7 mg/dL (2.5-4.9)
[2017-09-24 10:36] LABS: Base Excess 0 mmol/L (-2 to +2); Bicarbonate 23.7 mmol/L (22-26); Blood Gas Specimen Type ART; EPAP 6; FI02 35; IPAP 12; PO2 98 mmHG (75-100); RR 10; SITE L Brachial; SO2 98 % (95-99); Time Given 1030; Total Carbon Dioxide 25 mmol/L; pCO2 34.7 mmHg (35-45); pH 7.44 (7.35-7.45)
[2017-09-24] MEDS: Magnesium Sulfate 2 GM in Syringe 1 EACH IV (12:20)
[2017-09-24 13:10] LABS: Reflex Lactate? Y
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
[2017-09-24 14:43] LABS: Ferritin 379 ng/mL (26-388); Iron 17 ug/dL (65-175); Iron Binding Capacity,Total 187 ug/dL (250-450); PERCENT IRON SATURATION 9.1 % (15.0-55.0)
[2017-09-24 15:01] LABS: Lactic Acid 2.1 mmol/L (0.4-2.0)
[2017-09-24] MEDS: Piperacil/Tazobactam 4.5 GM in NS100 MBP IV (15:33)
[2017-09-24] MEDS: 0.9% Normal Saline 1,000 ML 125 ML IV ×2 (15:37→20:30)
[2017-09-24 15:41] LABS: M R Staph aureus DNA By PCR Negative (Negative); Probe Check PASS; Specimen Processing Control PASS
--- NOTE | 2017-09-24 15:42 | PCM.RX.CS ---
Consult Pharmacy has been consulted to manage selected antiobiotic: Vancomycin Type of Consult: New start Suspected Infection: Sepsis Prior Doses of Antibiotics Received/Current Regimen: 1250MG IV X1 IN E.R. AT 13:32 Labs: Sodium 129 mmol/L (136-145) L 09/24/17 08:58 Potassium 3.4 mmol/L (3.5-5.1) L 09/24/17 08:58 Chloride 93 mmol/L (98-107) L 09/24/17 08:58 Carbon Dioxide 27.0 mmol/L (21.0-32.0) 09/24/17 08:58 Anion Gap 9 (5-15) 09/24/17 08:58 BUN 12 mg/dL (7-18) 09/24/17 08:58 Creatinine 1.20 mg/dL (0.70-1.30) 09/24/17 08:58 Est GFR (MDRD) Af Amer 77 mL/min (>60) 09/24/17 08:58 Est GFR (MDRD) Non-Af 63 mL/min (>60) 09/24/17 08:58 BUN/Creatinine Ratio 10.0 RATIO (10-20) 09/24/17 08:58 Glucose 93 mg/dL (74-106) 09/24/17 08:58 Weight used for dosin.4 kg Estimated Creatinine Clearance: 69 ML/MIN Goal Trough: 15-20 mcg/mL Pharmacy Plan for Drug Dosin MG/KG LOAD (DOSE OF 1250MG ALREADY GIVEN IN E.R.) THEN 1000MG IV Q12H. OBTAIN TROUGH BEFORE 4TH TOTAL DOSE. Pharmacy Service will continue to monitor and adjust dosing as required. Follow-Up Labs: Trough Vancomycin Labs to be done on [date and time ordered]: 09/26/17 00:30
[2017-09-24 17:50] LABS: Lactic Acid 1.5 mmol/L (0.4-2.0)
[2017-09-24] MEDS: 0.9% NaCl Peripheral Flush Adult/Peds IV ×2 (18:16→21:07)
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
[2017-09-24] MEDS: Lisinopril 20 MG Tablet PO (20:53)
[2017-09-24] MEDS: Metoprolol Tartrate 25 MG Tablet PO (20:54)
[2017-09-24] MEDS: guaiFENesin 1,200 MG Tablet 1200 MG PO (20:54)
[2017-09-24] MEDS: Pantoprazole Sodium 20 MG Tablet PO (20:54)
[2017-09-24] MEDS: Mupirocin Ointment 22gm Tube 1 APPLIC NASAL (20:54)
[2017-09-24] MEDS: Heparin Injection (Vial) 5,000 UNIT/ML VIAL 5000 UNIT SC (20:54)
[2017-09-24] MEDS: Piperacil/Tazobactam 3.375 GM/50 ML ML IV (20:56)
[2017-09-24] MEDS: Acetaminophen 325 MG Tablet 650 MG PO (21:12)
[2017-09-24] MEDS: oxyCODONE 5 MG Tablet PO (21:12)
[2017-09-24 22:01] LABS: Anion Gap 9 (5-15); BUN 11 mg/dL (7-18); BUN/Creat Ratio 11.3 RATIO (10-20); Calcium,Total 5.7 mg/dL (8.5-10.1); Chloride 99 mmol/L (98-107); Creatinine, Serum 0.98 mg/dL (0.70-1.30); EST Glomerular Filtration Rate 81 mL/min (>60); Est Glom Filt Rate - Afr Amer 98 mL/min (>60); Estimated Creatinine Clearance 78.62 ml/min; Glucose 157 mg/dL (74-106); Magnesium 1.6 mg/dL (1.6-2.6); Potassium 3.5 mmol/L (3.5-5.1); Sodium Level 132 mmol/L (136-145)
[2017-09-25] VITALS (35 sets, daily range): BP systolic 108–145; BP diastolic 63–87; PULSE 73–117; RESP 16–28; TEMP 36.7–36.9; O2SAT 88–98
[2017-09-25] MEDS: Vancomycin IV 1,000 MG/200 ML BAG 200 MG IV (01:01)
[2017-09-25] MEDS: Ipratropium/Albuterol Sulfate 3 ML AMPUL.NEB INHALATION ×6 (03:11→23:22)
[2017-09-25] MEDS: 0.9% Normal Saline 1,000 ML 125 ML IV (04:36)
[2017-09-25] MEDS: 0.9% NaCl Peripheral Flush Adult/Peds IV ×2 (04:38→10:22)
[2017-09-25] MEDS: Acetaminophen 325 MG Tablet 650 MG PO ×2 (04:51→15:07)
[2017-09-25] MEDS: oxyCODONE 5 MG Tablet PO ×2 (04:51→15:07)
[2017-09-25 05:08] LABS: Absolute Lymphocyte Count 0.52 X10^3/ul (0.83-4.51); Basophil# 0.01 X10^3/uL; Basophil% 0.2 % (0-1); Hematocrit 25.1 % (40-54); Hemoglobin 8.7 g/dl (13.0-16.5); Lymphocyte # 0.52 X10^3/ul (4.0); Lymphocyte % 8.7 % (19-41); Mean Corp Hgb Conc 34.7 g/gl (32-36); Mean Corpuscular Hgb 33.5 pg (27.0-32.0); Mean Corpuscular Volume 96.5 fL (80-94); Mean Platelet Vol. 8.5 fl (6.2-12.0); Monocyte# 0.35 X10^3/uL; Monocyte% 5.9 % (0-10); Neutrophil # 5.02 X10^3/uL (2.7-7.7); Neutrophil % 84.4 % (47-70); Platelet Count 251 K/mm3 (150-450); RBC Distribution Width CV 13.2 % (11.6-14.6); RBC Distribution Width SD 43.9 fl (35.1-43.9)
[2017-09-25 05:17] LABS: Differential Indicated SCAN CRITERIA MET; POSITIVE COUNT NO; POSITIVE DIFFERENTIAL YES; POSITIVE MORPHOLOGY NO
[2017-09-25 05:46] LABS: Phosphorus 3.4 mg/dL (2.5-4.9)
[2017-09-25 06:09] LABS: ALB/GLOB Ratio 0.5 RATIO (0.9-2.4); AST(SGOT) 15 U/L (15-37); Alanine Aminotransfer ALT/SGPT 9 U/L (16-61); Albumin, Serum 2.2 g/dL (3.2-5.0); Alkaline Phosphatase 128 U/L (45-117); Anion Gap 12 (5-15); BUN 9 mg/dL (7-18); BUN/Creat Ratio 10.9 RATIO (10-20); Calcium,Total 6.4 mg/dL (8.5-10.1); Chloride 101 mmol/L (98-107); Creatinine, Serum 0.83 mg/dL (0.70-1.30); EST Glomerular Filtration Rate 97 mL/min (>60); Est Glom Filt Rate - Afr Amer 118 mL/min (>60); Estimated Creatinine Clearance 98.03 ml/min; Globulin 4.2 g/dL (2.2-4.2); Glucose 137 mg/dL (74-106); Potassium 4.4 mmol/L (3.5-5.1); Protein, Total 6.4 g/dL (6.4-8.2); Sodium Level 135 mmol/L (136-145)
[2017-09-25] MEDS: Piperacil/Tazobactam 3.375 GM/50 ML ML IV ×3 (06:10→21:31)
--- NOTE | 2017-09-25 06:46 | PCM.PN.HOSP ---
Patient Problems: Active and Suspected Problems (Last Reviewed 08/21/17 @ 09:20 by Cathy Fiore NP-[facility]) Acute respiratory failure with hypoxia (Acute) Hospital-acquired pneumonia (Acute) Enteritis (Acute) Hypomagnesemia (Acute) Hypocalcemia (Acute) Hyponatremia (Acute) Hypokalemia (Acute) COPD exacerbation (Acute) Severe sepsis (Acute) Bronchogenic cancer of left lung (Suspected) Subjective: Patient with discomfort to the thoracic and lumbar region, mildly decreased cough and improvement of dyspnea but ongoing exertional dyspnea requiring supplementation. Patient since admission to the ICU has had no further bowel movements although history diarrhea prior to presentation. He does note ongoing abdominal cramping and discomfort in the bilateral lower quadrants. Patient denies fevers, chills, nausea, emesis, abdominal pain, chest pain. Objective: Physical Examination: General: awake, alert, oriented x 3 and cooperative, seated upright in the ICU bedside chair, improved since initial presentation, still dyspnea with exertion, including oral intake. Skin: normal color, turgor, no icterus, cyanosis. HEENT: AT/NC, EOM L eye intact, glass R eye, L PRRL, less dry MM. Lungs: Mildly improved, still diminished diffusely, > bases, mildly rhonchoros BL bases, lessened distant end expiratory wheeze. Heart: Less tachycardic, still mildly increased with regular rhythm; no gallop, rub audible. Abdomen: soft, continued generalized TTP, worse BL LQ, hyperactive BS, less distended, mildly only. Extremities: no cyanosis, clubbing, BL LE ankle edema decreased from initial presentation. Neurological: patient awake, alert, oriented x 3; cognitive function despite acute presentation appears intact; L PRRL; cranial nerves II-XII grossly normal except deficit w/ R eye flase, moving all 4 extremities, strength remains severely globally decreased secondary to acute presentation. Psychiatric: affect appears improved, more normal, no acute evidence of depressive or anxiety feelings. Vitals/I&O's: Vital Signs Temp Pulse Resp BP Pulse Ox 98.0 F 91 22 H 122/75 H 94 09/25/17 05:00 09/25/17 06:36 09/25/17 06:36 09/25/17 06:00 09/25/17 06:36 Oxygen Flow Rate (L/min) 5 Oxygen Delivery Method Nasal Cannula Weight: 187 lb 2.759 oz Body Mass Index (BMI) 21.5 Intake and Output for Last 24 Hours 09/23/17 09/24/17 09/25/17 23:59 23:59 23:59 Intake Total 4395 / 4395 1809 / 1809 Output Total 700 / 700 875 / 875 Balance 3695 / 3695 934 / 934 Microbiology Past 72 Hours 09/24/17 13:24 Mucosa - Nose Respiratory Panel (PCR) - Final 09/24/17 17:00 Urine, Random Streptococcus pneumoniae Antigen (M - Final 09/24/17 17:00 Urine, Random Legionella Antigen - Final Laboratory Results 09/24/17 13:54: MRSA (PCR) Negative 09/24/17 14:00: Lactic Acid 2.1 H 09/24/17 14:00: Iron 17 L, TIBC 187 L, Iron Saturation 9.1 L, Ferritin 379, Folate 13.30 09/24/17 14:00: Vitamin B12 Pending 09/24/17 17:10: Lactic Acid 1.5 09/24/17 21:09: Sodium 132 L, Potassium 3.5, Chloride 99, Carbon Dioxide 24.0, Anion Gap 9, BUN 11, Creatinine 0.98, Estim Creat Clear Calc 78.62, Est GFR (MDRD) Af Amer 98, Est GFR (MDRD) Non-Af 81, BUN/Creatinine Ratio 11.3, Glucose 157 H, Calcium 5.7 L*, Magnesium 1.6 09/25/17 04:40: WBC 6.0, RBC 2.60 L, Hgb 8.7 L, Hct 25.1 L, MCV 96.5 H, MCH 33.5 H, MCHC 34.7, RDW 13.2, RDW Differential 43.9, Plt Count 251, MPV 8.5, Immature Gran % (Auto) 0.800, Neut % (Auto) 84.4 H, Lymph % (Auto) 8.7 L, [place] % (Auto) 5.9, Eos % (Auto) 0.0, Baso % (Auto) 0.2, Absolute Neuts (auto) 5.0, Absolute Lymphs (auto) 0.52 L, Total Counted Pending 09/25/17 04:40: Sodium 135 L, Potassium 4.4, Chloride 101, Carbon Dioxide 22.0, Anion Gap 12, BUN 9, Creatinine 0.83, Estim Creat Clear Calc 98.03, Est GFR (MDRD) Af Amer 118, Est GFR (MDRD) Non-Af 97, BUN/Creatinine Ratio 10.9, Glucose 137 H, Calcium 6.4 L*, Magnesium 2.0, Total Bilirubin 0.50, AST 15, ALT 9 L, Alkaline Phosphatase 128 H, Total Protein 6.4, Albumin 2.2 L, Globulin 4.2, Albumin/Globulin Ratio 0.5 L 09/25/17 04:40: Phosphorus 3.4 Current Medications Acetaminophen (Tylenol) 650 mg PO Q6H PRN PRN PRN Reason: Mild Pain (scale 0-3)/T>100.7 Last Admin: 09/25/17 04:51 Dose: 650 mg Al Hydroxide/Mg Hydroxide (Mylanta Ii) 30 ml PO Q6H PRN PRN PRN Reason: Gastric burning Albuterol Sulfate (Ventolin Aerosols) 2.5 mg INHALATION Q2H PRN PRN PRN Reason: SHORTNESS OF BREATH Albuterol/Ipratropium (Duoneb) 3 ml INHALATION Q4H.RT [facility] Last Admin: 09/25/17 06:36 Dose: 3 ml Amlodipine Besylate (Norvasc) 5 mg PO DAILY [facility] Cyclobenzaprine HCl (Flexeril) 10 mg PO TID PRN PRN PRN Reason: MUSCLE SPASMS Furosemide (Lasix) 10 mg PO DAILY [facility] Guaifenesin (Mucinex) 1,200 mg PO BID [facility] Last Admin: 09/24/17 20:54 Dose: 1,200 mg Heparin Sodium (Porcine) (Heparin Na) 5,000 unit SC Q12 [facility] Last Admin: 09/24/17 20:54 Dose: 5,000 unit Piperacillin Sod/Tazobactam Sod (Zosyn) 3.375 gm in 50 mls @ 12.5 mls/hr IV Q8 [facility] Last Admin: 09/25/17 06:10 Dose: 12.5 mls/hr Vancomycin HCl (Vancomycin) 1,000 mg in 200 mls @ 200 mls/hr IV Q12H [facility] Last Admin: 09/25/17 01:01 Dose: 200 mls/hr Sodium Chloride () 250 mls @ 15 mls/hr IV .[id number] PRN PRN Reason: SALINE FLUSH Calcium Gluconate 2 gm/ (Dextrose) 120 mls @ 60 mls/hr IV X1 ONE Stop: 09/25/17 08:59 Lactobacillus Acidophilus (Acidophilus) 2 tablet PO 4X/DAY [facility] Last Admin: 09/24/17 20:54 Dose: 2 tablet Lisinopril (Zestril) 20 mg PO BID [facility] Last Admin: 09/24/17 20:53 Dose: 20 mg Magnesium Hydroxide (Milk Of Magnesia) 30 ml PO DAILY PRN PRN PRN Reason: Constipation Methylprednisolone (Solu-Medrol) 40 mg IV Q8 [facility] Last Admin: 09/25/17 06:10 Dose: 40 mg Metoprolol Tartrate (Lopressor (Beta Delvin)) 25 mg PO QHS [facility] Last Admin: 09/24/17 20:54 Dose: 25 mg Metoprolol Tartrate (Lopressor (Beta Delvin)) 50 mg PO DAILY [facility] Morphine Sulfate () 2 - 4 mg IV Q3H PRN PRN PRN Reason: Severe Pain (pain scale 6-10) Morphine Sulfate () 1 - 2 mg IV Q4H PRN PRN PRN Reason: Moderate Pain (pain scale 4-5) Mupirocin (Bactroban) 1 applic NASAL BID [facility] PRN Reason: Protocol Last Admin: 09/24/17 20:54 Dose: 1 applicatio Ondansetron HCl (Zofran) 4 mg IV Q8H PRN PRN PRN Reason: NAUSEA Oxycodone HCl (Oxyir) 5 mg PO Q4H PRN PRN PRN Reason: Moderate Pain (pain scale 4-5) Last Admin: 09/25/17 04:51 Dose: 5 mg Pantoprazole Sodium (Protonix) 20 mg PO BID [facility] Last Admin: 09/24/17 20:54 Dose: 20 mg Promethazine HCl (Phenergan) 12.5 mg IV Q6H PRN PRN PRN Reason: NAUSEA/VOMITING Sodium Chloride () 5 - 30 ml IV UD PRN PRN Reason: SALINE FLUSH Last Admin: 09/25/17 04:38 Dose: 10 ml Medical Necessity - Tobacco Use Smoking Status: Current every day smoker Tobacco Use: Cigarettes Assessment/Plan All Active Problems (Last Reviewed 08/21/17 @ 09:20 by Cathy Fiore NP-C) Acute respiratory failure with hypoxia (Acute) Hospital-acquired pneumonia (Acute) Enteritis (Acute) Hypomagnesemia (Acute) Hypocalcemia (Acute) Hyponatremia (Acute) Hypokalemia (Acute) COPD exacerbation (Acute) Severe sepsis (Acute) Anemia associated with acute blood loss (Acute) Acute normocytic severe anemia (Acute) The patient is a 72 y/o M w/ PMHx: Chronic COPD w/ Chronic Hypoxic Respiratory Failure (4L NC), Hx GI Bleed w/ PUD and Barretts esophagus, Chronic Macrocytic Anemia, Hx Pulmonary Embolism previously on anticoagulation but discontinued secondary to GI bleed, HTN, HLD, Recent 08/2017 MRSA PNA treatment with acute respiratory failure at that time requiring ICU admission and incidentally noted spiculated lung nodules w/ recent 09/18/17 PET findings consistent w/ neoplasm, Diastolic CHF, Tobacco use, GERD who presents to the [facility] ED on 09/24/17 with history of ongoing diarrhea ongoing with cramping abdominal pain following his PET scan in addition to onset worsening dyspnea, worse with exertion prompting eventual ED presentation. 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 Will admit to ICU, consult ICU physician, consult his oncologist, Dr. Cedillo given recent PET scan results, continue BIPAP w/ transition to NC as able w/ wean as tolerated to home oxygen supplementation, continue ATC duonebs, PRN albuterol, IV solumedrol, maintained on IV Zosyn and Vancomycin, HOB, IS parameters w/ pending sputum cultures and urine antigens. Bld cx x 2 obtained in the ED and pending. 09/25/17 CBC w/ WBC 6, Hgb 8.7, Plts 251 with resolved L shift. Remained afebrile. Remained stable in ICU on 5L NC. (2) Abdominal pain, Diarrhea secondary to Possible Enteritis: CT A/P without contrast demostrating bibasilar infiltrates, nonenhancing right renal cyst, fluid filled loops small bowel suggesting enteritis with no evidence of obstruction, bowel containing right inguinal hernia without evidence of obstruction. Noted onset of diarrhea up to 12 times per day, continue aggressive hydration, requested c diff, stool cx but no BM since admission to the ICU, PRN anti-emetics, pain regimen PRN. Clears allowance and ADAT. (3) Severe Electrolyte Disturbances (Hypomagnesium, Hypocalcemia, Hypokalemia, Hyponatremia): Admission Na 129, K 3.4, Ca 5.5, Mag < 0.03. In the ED administered IVFs, Ca, Magnesium. Administered potassium and additional 4 gm magnesium with repeat levels upon admission. Phos normal. 09/25/17 repeat levels Na 135, Ca 6.4 with addition IV regimen administered, Phos 3.4, Mag 2.0. (4) Spiculated lung nodules: Noted on imaging w/ recent 09/18/17 PET findings consistent w/ neoplasm, Dr. Chatman consulted, recommended EBUS w/ Bx YADY mass and possibly LLL mass if pulmonary able once clinically improved; however, discussed with ICU/Pulmonary and the patient not great candidate for attempt as high risk PTX. Noted that patient not good surgical candidate. He was also noted secondary to his co-morbidities and current physical status not a candidate for palliative chemotherapy. (5) Chronic Diastolic CHF: CXR, CTPA without obvious congestion, BNP normal range, continue home ACEI, lasix low dose, metoprolol with hold parameters as needed. Not on statin. (6) Chronic Macrocytic Anemia: Admission Hgb 11.1, MCV 95.9, iron, ferritin concerning for Fe deficiency w/ Fe added, folic acid low normal w/ supplementation added, vitamin B12 pending. (7) Hx GI Bleed, PUD: Maintain on PPI. If c-diff assay positive will need to discontinue this regimen. (8) History of PE: Off anticoagulation secondary to GI bleed history. CTPA without evidence of PE as noted per read. (9) Hypertension: Continue home regimen including Norvasc, lisinopril, metoprolol with hold parameters, PRN hydralazine. (10) Tobacco Abuse: Encouraged cessation, inpatient consultation per RT. (11) DVT Prophylaxis: SCDs, heparin. (12) CODE status: Full Code. Code Visit Inpatient E&M: 10851 Subs Hosp L3
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
[2017-09-25 07:03] LABS: Differential Comment SCANNED; Hypochromasia 3+
[2017-09-25 09:25] LABS: Vitamin B12 1195 pg/mL (211-911)
[2017-09-25] MEDS: Folic Acid 1 MG Tablet PO (10:19)
[2017-09-25] MEDS: Calcium Carbonate 500 MG Tablet 1000 MG PO ×2 (10:19→16:24)
[2017-09-25] MEDS: Ferrous Gluconate 325 MG Tablet PO ×2 (10:19→16:24)
[2017-09-25] MEDS: Heparin Injection (Vial) 5,000 UNIT/ML VIAL 5000 UNIT SC ×2 (10:20→21:22)
[2017-09-25] MEDS: Mupirocin Ointment 22gm Tube 1 APPLIC NASAL (10:20)
[2017-09-25] MEDS: Metoprolol Tartrate 25 MG Tablet 50 MG PO (10:21)
[2017-09-25] MEDS: Furosemide 20 MG Tablet 10 MG PO (10:21)
[2017-09-25] MEDS: guaiFENesin 1,200 MG Tablet 1200 MG PO ×2 (10:21→21:23)
[2017-09-25] MEDS: Pantoprazole Sodium 20 MG Tablet PO ×2 (10:22→21:23)
[2017-09-25] MEDS: amLODIPine 5 MG Tablet PO (10:22)
[2017-09-25] MEDS: Lisinopril 20 MG Tablet PO ×2 (10:22→21:24)
--- NOTE | 2017-09-25 12:29 | CASEMGMT ---
See RN CM Assessment Link. -Pt states he has oxygen @ home 4L [place]. His concentrator can go to 5L. If more is required @ home with ambulation-will need new script and testing to [facility] to show Home oxygen needs. - feels they can manage @ home. PT evelinal noted. Will continue to follow and evaluate for dc needs. Pardeep MANCINI RN ACM
[2017-09-25] MEDS: Metoprolol Tartrate 25 MG Tablet PO (21:23)
[2017-09-26] VITALS (27 sets, daily range): BP systolic 108–143; BP diastolic 46–89; PULSE 84–131; RESP 13–26; TEMP 36.4–36.9; O2SAT 90–97
[2017-09-26] MEDS: Ipratropium/Albuterol Sulfate 3 ML AMPUL.NEB INHALATION ×5 (03:06→20:03)
[2017-09-26] MEDS: oxyCODONE 5 MG Tablet PO ×3 (04:23→20:46)
[2017-09-26] MEDS: Acetaminophen 325 MG Tablet 650 MG PO ×2 (04:24→17:13)
[2017-09-26 04:43] LABS: Absolute Lymphocyte Count 0.64 X10^3/ul (0.83-4.51); Absolute Neutrophil Count 9.8 X10^3/uL (2.0-7.7); Hematocrit 26.8 % (40-54); Hemoglobin 9.1 g/dl (13.0-16.5); Lymphocyte # 0.64 X10^3/ul (4.0); Lymphocyte % 5.7 % (19-41); Mean Corpuscular Hgb 33.1 pg (27.0-32.0); Mean Corpuscular Volume 97.5 fL (80-94); Mean Platelet Vol. 8.1 fl (6.2-12.0); Monocyte# 0.74 X10^3/uL; Monocyte% 6.6 % (0-10); Neutrophil # 9.81 X10^3/uL (2.7-7.7); Platelet Count 304 K/mm3 (150-450); RBC Distribution Width CV 13.4 % (11.6-14.6); RBC Distribution Width SD 45.1 fl (35.1-43.9); Red Blood Count 2.75 M/mm3 (4.6-6.2); White Blood Count 11.3 K/mm3 (4.4-11.0)
[2017-09-26 04:49] LABS: POSITIVE COUNT NO; POSITIVE DIFFERENTIAL NO; POSITIVE MORPHOLOGY NO
[2017-09-26 05:00] LABS: Phosphorus 3.4 mg/dL (2.5-4.9)
[2017-09-26 05:04] LABS: ALB/GLOB Ratio 0.5 RATIO (0.9-2.4); AST(SGOT) 18 U/L (15-37); Alanine Aminotransfer ALT/SGPT 15 U/L (16-61); Albumin, Serum 2.4 g/dL (3.2-5.0); Alkaline Phosphatase 128 U/L (45-117); Anion Gap 11 (5-15); BUN 15 mg/dL (7-18); BUN/Creat Ratio 14.2 RATIO (10-20); Calcium,Total 7.5 mg/dL (8.5-10.1); Chloride 98 mmol/L (98-107); Creatinine, Serum 1.06 mg/dL (0.70-1.30); EST Glomerular Filtration Rate 73 mL/min (>60); Est Glom Filt Rate - Afr Amer 89 mL/min (>60); Estimated Creatinine Clearance 78.47 ml/min; Globulin 4.5 g/dL (2.2-4.2); Glucose 127 mg/dL (74-106); Magnesium 1.8 mg/dL (1.6-2.6); Potassium 4.7 mmol/L (3.5-5.1); Protein, Total 6.9 g/dL (6.4-8.2); Sodium Level 134 mmol/L (136-145)
[2017-09-26] MEDS: 0.9% NaCl Peripheral Flush Adult/Peds IV ×2 (05:35→17:10)
[2017-09-26] MEDS: Piperacil/Tazobactam 3.375 GM/50 ML ML IV ×3 (05:35→21:48)
--- NOTE | 2017-09-26 06:41 | PN_ITS ---
Subjective: Patient did okay overnight. Patient has been tolerating 5 L nasal cannula. Patient reportedly uses 4 L nasal cannula at home. Patient tolerating p.o. Patient has not had a bowel movement since admission, but reports I feel like I need to have one. General: Alert, Oriented x3, Cooperative, No apparent distress, - - Appears stated age. Speaking in full sentences. Hard of hearing. HEENT: Atraumatic, PERRLA, EOMI, Normocephalic, - - No scleral icterus or injection noted. Oral: Moist Mucosa, No Gingival or Mucosal Lesions/ Ulcerations Neck: Supple, No JVD, No Nodes, Trachea Midline Lungs: No rhonchi, No rales, Diminished, Wheezes - Sporadic Cardiovascular: Regular rate, Regular Rhythm, Normal S1, Normal S2, No murmurs, No rub noted, No Gallop Abdomen: Bowel Sounds Present, Soft, Non Tender, Non-Distended Extremities: No cyanosis, No edema, Capillary Refill Less than 3 Seconds, Clubbing Skin: No rashes, No breakdown Musculoskeletal: No Tenderness to Palpation of Joints or Extremities Lymphatic: No Cervical, Supraclavicular, or Inguinal Adenopathy Neurological: Cranial nerves II-XII grossly intact, Neuro grossly intact, Motor Exam 5/5 strength throughout Psych/Mental Status: Alert and oriented to time, place, person, mood and affect Vital Signs Temp Pulse Resp BP Pulse Ox 36.8 C 94 20 H 137/72 H 90 09/26/17 03:00 09/26/17 06:00 09/26/17 06:00 09/26/17 06:00 09/26/17 06:00 Oxygen Flow Rate (L/min) 5 Oxygen Delivery Method Nasal Cannula Weight: 87 kg Body Mass Index (BMI) 21.5 Intake and Output for Last 24 Hours 09/24/17 09/25/17 09/26/17 23:59 23:59 23:59 Intake Total 4395 / 4395 3161 / 3161 791.3 / 791.3 Output Total 700 / 700 1375 / 1375 1350 / 1350 Balance 3695 / 3695 1786 / 1786 -558.7 / -558.7 Labs (Last 48 Hours) 09/24/17 09/24/17 09/24/17 13:54 14:00 14:00 WBC RBC Hgb Hct MCV MCH MCHC RDW RDW Differential Plt Count MPV Immature Gran % (Auto) Neut % (Auto) Lymph % (Auto) [place] % (Auto) Eos % (Auto) Baso % (Auto) Absolute Neuts (auto) Absolute Lymphs (auto) Total Counted Differential Comment Hypochromasia Sodium Potassium Chloride Carbon Dioxide Anion Gap BUN Creatinine Estim Creat Clear Calc Est GFR (MDRD) Af Amer Est GFR (MDRD) Non-Af BUN/Creatinine Ratio Glucose Lactic Acid 2.1 H Calcium Phosphorus Magnesium Iron 17 L TIBC 187 L Iron Saturation 9.1 L Ferritin 379 Total Bilirubin AST ALT Alkaline Phosphatase Total Protein Albumin Globulin Albumin/Globulin Ratio Vitamin B12 Folate 13.30 MRSA (PCR) Negative 09/24/17 09/24/17 09/24/17 14:00 17:10 21:09 WBC RBC Hgb Hct MCV MCH MCHC RDW RDW Differential Plt Count MPV Immature Gran % (Auto) Neut % (Auto) Lymph % (Auto) [place] % (Auto) Eos % (Auto) Baso % (Auto) Absolute Neuts (auto) Absolute Lymphs (auto) Total Counted Differential Comment Hypochromasia Sodium 132 L Potassium 3.5 Chloride 99 Carbon Dioxide 24.0 Anion Gap 9 BUN 11 Creatinine 0.98 Estim Creat Clear Calc 78.62 Est GFR (MDRD) Af Amer 98 Est GFR (MDRD) Non-Af 81 BUN/Creatinine Ratio 11.3 Glucose 157 H Lactic Acid 1.5 Calcium 5.7 L* Phosphorus Magnesium 1.6 Iron TIBC Iron Saturation Ferritin Total Bilirubin AST ALT Alkaline Phosphatase Total Protein Albumin Globulin Albumin/Globulin Ratio Vitamin B12 1195 H Folate MRSA (PCR) 09/25/17 09/25/17 09/25/17 04:40 04:40 04:40 WBC 6.0 RBC 2.60 L Hgb 8.7 L Hct 25.1 L MCV 96.5 H MCH 33.5 H MCHC 34.7 RDW 13.2 RDW Differential 43.9 Plt Count 251 MPV 8.5 Immature Gran % (Auto) 0.800 Neut % (Auto) 84.4 H Lymph % (Auto) 8.7 L [place] % (Auto) 5.9 Eos % (Auto) 0.0 Baso % (Auto) 0.2 Absolute Neuts (auto) 5.0 Absolute Lymphs (auto) 0.52 L Total Counted Not Reportable Differential Comment SCANNED Hypochromasia 3+ Sodium 135 L Potassium 4.4 Chloride 101 Carbon Dioxide 22.0 Anion Gap 12 BUN 9 Creatinine 0.83 Estim Creat Clear Calc 98.03 Est GFR (MDRD) Af Amer 118 Est GFR (MDRD) Non-Af 97 BUN/Creatinine Ratio 10.9 Glucose 137 H Lactic Acid Calcium 6.4 L* Phosphorus 3.4 Magnesium 2.0 Iron TIBC Iron Saturation Ferritin Total Bilirubin 0.50 AST 15 ALT 9 L Alkaline Phosphatase 128 H Total Protein 6.4 Albumin 2.2 L Globulin 4.2 Albumin/Globulin Ratio 0.5 L Vitamin B12 Folate MRSA (PCR) 09/26/17 09/26/17 09/26/17 04:30 04:30 04:30 WBC 11.3 H RBC 2.75 L Hgb 9.1 L Hct 26.8 L MCV 97.5 H MCH 33.1 H MCHC 34.0 RDW 13.4 RDW Differential 45.1 H Plt Count 304 MPV 8.1 Immature Gran % (Auto) 0.700 Neut % (Auto) 87.0 H Lymph % (Auto) 5.7 L [place] % (Auto) 6.6 Eos % (Auto) 0.0 Baso % (Auto) 0.0 Absolute Neuts (auto) 9.8 H Absolute Lymphs (auto) 0.64 L Total Counted Not Reportable Differential Comment Hypochromasia Sodium 134 L Potassium 4.7 Chloride 98 Carbon Dioxide 25.0 Anion Gap 11 BUN 15 Creatinine 1.06 Estim Creat Clear Calc 78.47 Est GFR (MDRD) Af Amer 89 Est GFR (MDRD) Non-Af 73 BUN/Creatinine Ratio 14.2 Glucose 127 H Lactic Acid Calcium 7.5 L Phosphorus 3.4 Magnesium 1.8 Iron TIBC Iron Saturation Ferritin Total Bilirubin 0.40 AST 18 ALT 15 L Alkaline Phosphatase 128 H Total Protein 6.9 Albumin 2.4 L Globulin 4.5 H Albumin/Globulin Ratio 0.5 L Vitamin B12 Folate MRSA (PCR) Microbiology 09/24/17 17:40 Sputum, Expectorated/Coughed Gram Stain - Final 09/24/17 13:24 Mucosa - Nose Respiratory Panel (PCR) - Final 09/24/17 17:00 Urine, Random Streptococcus pneumoniae Antigen (M - Final 09/24/17 17:00 Urine, Random Legionella Antigen - Final Clinical Impression(s) from Imaging Studies Thoracic Spine X-Ray 09/25/17 08:35 IMPRESSION: Multilevel degenerative disc disease without acute findings Electronically Signed: Christiano Curry at 18:18 EDT Tel , Service support , Lumbar Spine X-Ray 09/25/17 15:30 IMPRESSION: Age indeterminate compression fracture of L4. Degenerative changes. Electronically Signed: Christiano JensenDO dianna at 18:19 EDT Tel , Service support , Medical Necessity - Tobacco Use Smoking Status: Current every day smoker Tobacco Use: Cigarettes Assessment/Plan All Active Problems (Last Reviewed 08/21/17 @ 09:20 by Cathy Fiore NP-C) Acute respiratory failure with hypoxia (Acute) Hospital-acquired pneumonia (Acute) Enteritis (Acute) Hypomagnesemia (Acute) Hypocalcemia (Acute) Hyponatremia (Acute) Hypokalemia (Acute) COPD exacerbation (Acute) Severe sepsis (Acute) Anemia associated with acute blood loss (Acute) Acute normocytic severe anemia (Acute) RECOMMENDATIONS: 1. Wean IV steroids 2. Continue antibiotics, mucolytic and bronchodilators 3. Aggressive electrolyte repletion 4. Wean oxygen to keep saturations 88-92% 5. Okay to leave the intensive care unit from my perspective IMPRESSIONS: 1. Acute on chronic respiratory failure secondary to COPD exacerbation Recent history of MRSA pneumonia and PET scan does show some hypermetabolic areas in the left lower lobe. Unclear if this represents residual infection versus metastasis of spiculated nodule. Patient is on empiric antibiotics, steroids and bronchodilators at this time. Vancomycin was discontinued yesterday. Patient was noted to have 4+ gram-positive bacteria on sputum Gram stain. No fevers have been noted overnight. Continue to wean oxygen as tolerated to keep saturations 88-92% 2. Chronic diastolic congestive heart failure Patient does have a history of chronic diastolic congestive heart failure. Patient does not have rales on exam at this time, but does have significantly diminished breath sounds, so this may be difficult to delineate. Patient tolerating p.o. well. Patient can be reinitiated on baseline CHF medications from my perspective. 3. Spiculated left upper lobe nodule Patient will be very challenging to obtain a tissue biopsy. Patient does not have any mediastinal lymphadenopathy and left upper lobe nodule is approximately 1 cm away from the airway surrounded by emphysematous changes. Patient would be a high clinical risk for pneumothorax. Patient may be a candidate for navigational bronchoscopy, but this could not be offered at [facility]. If patient was found to have positive mediastinal nodes on endobronchial ultrasound, patient would likely receive palliative measures as he does not appear to have a functional status to tolerate systemic chemotherapy. 4. Hypomagnesemia/hypocalcemia/hypokalemia/hyponatremia Unclear if electrolyte abnormalities are secondary to refeeding versus diarrheal losses versus possible paraneoplastic syndrome. Patient appears to be responding to calcium supplementation. 5. Enteritis of unclear etiology Patient reported one-month history of diarrhea. C. difficile assay should be discontinued given negative bowel movement for over 24 hours. Patient is not reporting any abdominal pain at this time. 6. History of GI bleed/history of PE/hypertension/continued tobacco abuse Complicates care, management, recovery and prognosis. Patient currently only on DVT prophylaxis. Code Visit Inpatient E&M: 30325 Subs Hosp L3
--- NOTE | 2017-09-26 08:14 | PCM.PN.HOSP ---
Patient Problems: Active and Suspected Problems (Last Reviewed 08/21/17 @ 09:20 by Cathy Fiore NP-C) Acute respiratory failure with hypoxia (Acute) Hospital-acquired pneumonia (Acute) Enteritis (Acute) Hypomagnesemia (Acute) Hypocalcemia (Acute) Hyponatremia (Acute) Hypokalemia (Acute) COPD exacerbation (Acute) Severe sepsis (Acute) Bronchogenic cancer of left lung (Suspected) Subjective: The patient is a 72 y/o M w/ PMHx: Chronic COPD w/ Chronic Hypoxic Respiratory Failure (4L NC), Hx GI Bleed w/ PUD and Barretts esophagus, Chronic Macrocytic Anemia, Hx Pulmonary Embolism previously on anticoagulation but discontinued secondary to GI bleed, HTN, HLD, Recent 08/2017 MRSA PNA treatment with acute respiratory failure at that time requiring ICU admission and incidentally noted spiculated lung nodules w/ recent 09/18/17 PET findings consistent w/ neoplasm, Diastolic CHF, Tobacco use, GERD who presents to the [facility] ED on 09/24/17 with history of ongoing diarrhea ongoing with cramping abdominal pain following his PET scan in addition to onset worsening dyspnea, worse with exertion prompting eventual ED presentation. Acute Severe Sepsis secondary to Acute Hypoxic Respiratory Failure on Chronic Hypoxic Respiratory Failure secondary to HCAP w/ Recent MRSA Pneumonia and COPD Exacerbation and #2: CTPA w/ no evidence of PE or arterial dissection, new left basilar airspace consolidation likely provider relations representative of pneumonia, improved aeration right lung base since prior study, severe centrilobular L emphysema, spiculated left apical pulmonary mass similar to prior study, ED Presentation w/ tachypnea, tachycardia, respiratory failure w/ BIPAP application, elevated lactic acid. Will admit to ICU, consult ICU physician, consult his oncologist, Dr. Cedillo given recent PET scan results, continue BIPAP w/ transition to NC as able w/ wean as tolerated to home oxygen supplementation, continue ATC duonebs, PRN albuterol, IV solumedrol, maintained on IV Zosyn and Vancomycin, HOB, IS parameters w/ pending sputum cultures and urine antigens. Bld cx x 2 obtained in the ED and pending. 09/26/17 CBC w/ WBC 11.3. Hgb 9.1, Plts 304 with increased L shift. Clinically patient improving, less desaturations on nearing home nasal cannula supplementation regimen, plan transition to PCU and de-escalation of IV Solu-Medrol to 40 mg IV every 12 with recommended further wean to continue per pulmonary medicine. Given appearance, debility, severity of tremors patient may need longterm facility placement once clinically appropriate for discharge. Severe Electrolyte Disturbances (Hypomagnesium, Hypocalcemia, Hypokalemia, Hyponatremia): Admission Na 129, K 3.4, Ca 5.5, Mag < 0.03. In the ED administered IVFs, Ca, Magnesium. Administered potassium and additional 4 gm magnesium with repeat levels upon admission. Phos normal. 09/26/17 repeat levels Na 134, Ca 7.5 with addition IV regimen administered, Phos 3.4, Mag 1.8, continue to closely monitor. Spiculated lung nodules: Noted on imaging w/ recent 09/18/17 PET findings consistent w/ neoplasm, Dr. Chatman consulted, recommended EBUS w/ Bx YADY mass and possibly LLL mass if pulmonary able once clinically improved; however, discussed with ICU/Pulmonary and the patient not great candidate for attempt as high risk PTX. Noted that patient not good surgical candidate. He was also noted secondary to his co-morbidities and current physical status not a candidate for palliative chemotherapy. Patient with no acute events overnight per self and per nursing report. His oxygenation continues to improve but still requiring 5 L nasal cannula with normal home usage 4 L. He has lessened lumbar and thoracic back discomfort with plain films noting age indeterminate compression fracture of L4 otherwise severe degenerative changes. He has ongoing tremor which is unfortunately his baseline. Patient did have bowel movement. Patient transitioned to decreased IV steroid regimen with recommended continued wean per pulmonary medicine. Patient felt clinically appropriate for transition to PCU care. Patient denies fevers, chills, nausea, emesis, abdominal pain, chest pain. Objective: Physical Examination: General: awake, alert, oriented x 3 and cooperative, seated upright in the ICU bedside chair, eating, NAD. Skin: normal color, turgor, no icterus, cyanosis. HEENT: AT/NC, EOM L eye intact, glass R eye, L PRRL, less dry MM. Lungs: Proved, still diffusely diminished, greater bases, resolved rhonchorous breath sounds, still occasional end expiratory wheeze but improved. Heart: Less tachycardic, still mildly increased with regular rhythm but suspect difficulties with correctly monitoring secondary to chronic tremors; no gallop, rub audible. Abdomen: soft, improved discomfort, recent bowel movement, currently nontender to palpation, soft prior mild distention, normalized bowel sounds. Extremities: no cyanosis, clubbing, BL LE ankle edema decreased from initial presentation. Neurological: patient awake, alert, oriented x 3; cognitive function despite acute presentation appears intact; L PRRL; cranial nerves II-XII grossly normal except deficit w/ R eye flase, moving all 4 extremities, strength remains lead to severely globally decreased secondary to acute presentation. Psychiatric: affect appears normal, no acute evidence of depressive or anxiety feelings. Vitals/I&O's: Vital Signs Temp Pulse Resp BP Pulse Ox 97.6 F L 101 H 23 H 134/69 H 90 09/26/17 08:00 09/26/17 08:00 09/26/17 08:00 09/26/17 08:00 09/26/17 08:00 Oxygen Flow Rate (L/min) 5 Oxygen Delivery Method Nasal Cannula Weight: 191 lb 12.835 oz Body Mass Index (BMI) 21.5 Intake and Output for Last 24 Hours 09/24/17 09/25/17 09/26/17 23:59 23:59 23:59 Intake Total 4395 / 4395 3161 / 3161 791.3 / 791.3 Output Total 700 / 700 1375 / 1375 1350 / 1350 Balance 3695 / 3695 1786 / 1786 -558.7 / -558.7 Microbiology Past 72 Hours 09/24/17 17:40 Sputum, Expectorated/Coughed Gram Stain - Final 09/24/17 13:24 Mucosa - Nose Respiratory Panel (PCR) - Final 09/24/17 17:00 Urine, Random Streptococcus pneumoniae Antigen (M - Final 09/24/17 17:00 Urine, Random Legionella Antigen - Final Laboratory Results 09/24/17 14:00: Vitamin B12 1195 H 09/26/17 04:30: WBC 11.3 H, RBC 2.75 L, Hgb 9.1 L, Hct 26.8 L, MCV 97.5 H, MCH 33.1 H, MCHC 34.0, RDW 13.4, RDW Differential 45.1 H, Plt Count 304, MPV 8.1, Immature Gran % (Auto) 0.700, Neut % (Auto) 87.0 H, Lymph % (Auto) 5.7 L, [place] % (Auto) 6.6, Eos % (Auto) 0.0, Baso % (Auto) 0.0, Absolute Neuts (auto) 9.8 H, Absolute Lymphs (auto) 0.64 L, Total Counted Not Reportable 09/26/17 04:30: Sodium 134 L, Potassium 4.7, Chloride 98, Carbon Dioxide 25.0, Anion Gap 11, BUN 15, Creatinine 1.06, Estim Creat Clear Calc 78.47, Est GFR (MDRD) Af Amer 89, Est GFR (MDRD) Non-Af 73, BUN/Creatinine Ratio 14.2, Glucose 127 H, Calcium 7.5 L, Magnesium 1.8, Total Bilirubin 0.40, AST 18, ALT 15 L, Alkaline Phosphatase 128 H, Total Protein 6.9, Albumin 2.4 L, Globulin 4.5 H, Albumin/Globulin Ratio 0.5 L 09/26/17 04:30: Phosphorus 3.4 Current Medications Acetaminophen (Tylenol) 650 mg PO Q6H PRN PRN PRN Reason: Mild Pain (scale 0-3)/T>100.7 Last Admin: 09/26/17 04:24 Dose: 650 mg Al Hydroxide/Mg Hydroxide (Mylanta Ii) 30 ml PO Q6H PRN PRN PRN Reason: Gastric burning Albuterol Sulfate (Ventolin Aerosols) 2.5 mg INHALATION Q2H PRN PRN PRN Reason: SHORTNESS OF BREATH Albuterol/Ipratropium (Duoneb) 3 ml INHALATION Q4H.RT [facility] Last Admin: 09/26/17 07:00 Dose: 3 ml Amlodipine Besylate (Norvasc) 5 mg PO DAILY [facility] Last Admin: 09/25/17 10:22 Dose: 5 mg Calcium Carbon[facility] ([facility]) [facility] Last Admin: 09/25/17 16:24 Dose: 1,000 mg Cyclobenzaprine HCl (Flexeril) 10 mg PO TID PRN PRN PRN Reason: MUSCLE SPASMS Last Admin: 09/25/17 07:49 Dose: 10 mg Ferrous Gluconate (Ferrous Gluconate) [facility] Last Admin: 09/25/17 16:24 Dose: 325 mg Folic Acid (Folic Acid) 1 mg PO DAILY@0800 [facility] Last Admin: 09/25/17 10:19 Dose: 1 mg Furosemide (Lasix) 10 mg PO DAILY [facility] Last Admin: 09/25/17 10:21 Dose: 10 mg Guaifenesin (Mucinex) 1,200 mg PO BID [facility] Last Admin: 09/25/17 21:23 Dose: 1,200 mg Heparin Sodium (Porcine) (Heparin Na) 5,000 unit SC Q12 [facility] Last Admin: 09/25/17 21:22 Dose: 5,000 unit Piperacillin Sod/Tazobactam Sod (Zosyn) 3.375 gm in 50 mls @ 12.5 mls/hr IV Q8 [facility] Last Admin: 09/26/17 05:35 Dose: 12.5 mls/hr Sodium Chloride () 250 mls @ 15 mls/hr IV .[id number] PRN PRN Reason: SALINE FLUSH Lactobacillus Acidophilus (Acidophilus) 2 tablet PO 4X/DAY [facility] Last Admin: 09/25/17 21:22 Dose: 2 tablet Lisinopril (Zestril) 20 mg PO BID [facility] Last Admin: 09/25/17 21:24 Dose: 20 mg Magnesium Hydroxide (Milk Of Magnesia) 30 ml PO DAILY PRN PRN PRN Reason: Constipation Methylprednisolone (Solu-Medrol) 40 mg IV Q12 [facility] Metoprolol Tartrate (Lopressor (Beta Delvin)) 25 mg PO QHS [facility] Last Admin: 09/25/17 21:23 Dose: 25 mg Metoprolol Tartrate (Lopressor (Beta Delvin)) 50 mg PO DAILY [facility] Last Admin: 09/25/17 10:21 Dose: 50 mg Morphine Sulfate () 2 - 4 mg IV Q3H PRN PRN PRN Reason: Severe Pain (pain scale 6-10) Morphine Sulfate () 1 - 2 mg IV Q4H PRN PRN PRN Reason: Moderate Pain (pain scale 4-5) Nicotine (Nicoderm Cq (Pbkc)) 7 mg TRANSDERM. DAILY [facility] Last Admin: 09/25/17 16:22 Dose: 7 mg Nutritional Formula (Lactose Free) (Ensure Enlive) 120 ml PO 4X/DAY [facility] Last Admin: 09/25/17 21:22 Dose: 120 ml Ondansetron HCl (Zofran) 4 mg IV Q8H PRN PRN PRN Reason: NAUSEA Oxycodone HCl (Oxyir) 5 mg PO Q4H PRN PRN PRN Reason: Moderate Pain (pain scale 4-5) Last Admin: 09/26/17 04:23 Dose: 5 mg Pantoprazole Sodium (Protonix) 20 mg PO BID [facility] Last Admin: 09/25/17 21:23 Dose: 20 mg Promethazine HCl (Phenergan) 12.5 mg IV Q6H PRN PRN PRN Reason: NAUSEA/VOMITING Sodium Chloride () 5 - 30 ml IV UD PRN PRN Reason: SALINE FLUSH Last Admin: 09/26/17 05:35 Dose: 10 ml Medical Necessity - Tobacco Use Smoking Status: Current every day smoker Tobacco Use: Cigarettes Assessment/Plan All Active Problems (Last Reviewed 08/21/17 @ 09:20 by Cathy Fiore NP-C) Acute respiratory failure with hypoxia (Acute) Hospital-acquired pneumonia (Acute) Enteritis (Acute) Hypomagnesemia (Acute) Hypocalcemia (Acute) Hyponatremia (Acute) Hypokalemia (Acute) COPD exacerbation (Acute) Severe sepsis (Acute) Anemia associated with acute blood loss (Acute) Acute normocytic severe anemia (Acute) The patient is a 72 y/o M w/ PMHx: Chronic COPD w/ Chronic Hypoxic Respiratory Failure (4L NC), Hx GI Bleed w/ PUD and Barretts esophagus, Chronic Macrocytic Anemia, Hx Pulmonary Embolism previously on anticoagulation but discontinued secondary to GI bleed, HTN, HLD, Recent 08/2017 MRSA PNA treatment with acute respiratory failure at that time requiring ICU admission and incidentally noted spiculated lung nodules w/ recent 09/18/17 PET findings consistent w/ neoplasm, Diastolic CHF, Tobacco use, GERD who presents to the [facility] ED on 09/24/17 with history of ongoing diarrhea ongoing with cramping abdominal pain following his PET scan in addition to onset worsening dyspnea, worse with exertion prompting eventual ED presentation. (1) Acute Severe Sepsis secondary to Acute Hypoxic Respiratory Failure on Chronic Hypoxic Respiratory Failure secondary to HCAP w/ Recent MRSA Pneumonia and COPD Exacerbation and #2: CTPA w/ no evidence of PE or arterial dissection, new left basilar airspace consolidation likely provider relations representative of pneumonia, improved aeration right lung base since prior study, severe centrilobular L emphysema, spiculated left apical pulmonary mass similar to prior study, ED Presentation w/ tachypnea, tachycardia, respiratory failure w/ BIPAP application, elevated lactic acid. Will admit to ICU, consult ICU physician, consult his oncologist, Dr. Cedillo given recent PET scan results, continue BIPAP w/ transition to NC as able w/ wean as tolerated to home oxygen supplementation, continue ATC duonebs, PRN albuterol, IV solumedrol, maintained on IV Zosyn and Vancomycin, HOB, IS parameters w/ pending sputum cultures and urine antigens. Bld cx x 2 obtained in the ED and pending. 09/26/17 CBC w/ WBC 11.3. Hgb 9.1, Plts 304 with increased L shift. Clinically patient improving, less desaturations on nearing home nasal cannula supplementation regimen, plan transition to PCU and de-escalation of IV Solu-Medrol to 40 mg IV every 12 with recommended further wean to continue per pulmonary medicine. Given appearance, debility, severity of tremors patient may need longterm facility placement once clinically appropriate for discharge. (2) Abdominal pain, Diarrhea secondary to Possible Enteritis: CT A/P without contrast demostrating bibasilar infiltrates, nonenhancing right renal cyst, fluid filled loops small bowel suggesting enteritis with no evidence of obstruction, bowel containing right inguinal hernia without evidence of obstruction. Noted onset of diarrhea up to 12 times per day however upon admission bowel movements have completely subsided. Patient was hydrated, unable to abstain stool studies secondary to no recurrence of diarrhea. Patient abdominal discomfort had resolved following bowel movement evening prior. Tolerating diet advancement. (3) Severe Electrolyte Disturbances (Hypomagnesium, Hypocalcemia, Hypokalemia, Hyponatremia): Admission Na 129, K 3.4, Ca 5.5, Mag < 0.03. In the ED administered IVFs, Ca, Magnesium. Administered potassium and additional 4 gm magnesium with repeat levels upon admission. Phos normal. 09/26/17 repeat levels Na 134, Ca 7.5 with addition IV regimen administered, Phos 3.4, Mag 1.8, continue to closely monitor. (4) Spiculated lung nodules: Noted on imaging w/ recent 09/18/17 PET findings consistent w/ neoplasm, Dr. Chatman consulted, recommended EBUS w/ Bx YADY mass and possibly LLL mass if pulmonary able once clinically improved; however, discussed with ICU/Pulmonary and the patient not great candidate for attempt as high risk PTX. Noted that patient not good surgical candidate. He was also noted secondary to his co-morbidities and current physical status not a candidate for palliative chemotherapy. (5) Chronic Diastolic CHF: CXR, CTPA without obvious congestion, BNP normal range, continue home ACEI, lasix low dose, metoprolol with hold parameters as needed. Not on statin. (6) Chronic Macrocytic Anemia: Admission Hgb 11.1, MCV 95.9, iron, ferritin concerning for Fe deficiency w/ Fe added, folic acid low normal w/ supplementation added, vitamin B12 1195. (7) Hx GI Bleed, PUD: Maintain on PPI. (8) History of PE: Off anticoagulation secondary to GI bleed history. CTPA without evidence of PE as noted per read. (9) Hypertension: Continue home regimen including Norvasc, lisinopril, metoprolol with hold parameters, PRN hydralazine. (10) Tobacco Abuse: Encouraged cessation, inpatient consultation per RT. (11) DVT Prophylaxis: SCDs, heparin. (12) CODE status: Full Code. Code Visit Inpatient E&M: 75768 Subs Hosp L2
[2017-09-26] MEDS: Calcium Carbonate 500 MG Tablet 1000 MG PO ×2 (08:37→16:30)
[2017-09-26] MEDS: Folic Acid 1 MG Tablet PO (08:38)
[2017-09-26] MEDS: Ferrous Gluconate 325 MG Tablet PO ×2 (08:38→16:31)
[2017-09-26] MEDS: Heparin Injection (Vial) 5,000 UNIT/ML VIAL 5000 UNIT SC ×2 (10:21→21:49)
[2017-09-26] MEDS: guaiFENesin 1,200 MG Tablet 1200 MG PO ×2 (10:22→21:50)
[2017-09-26] MEDS: Furosemide 20 MG Tablet 10 MG PO (10:22)
[2017-09-26] MEDS: Metoprolol Tartrate 25 MG Tablet 50 MG PO (10:23)
[2017-09-26] MEDS: Lisinopril 20 MG Tablet PO ×2 (10:24→21:49)
[2017-09-26] MEDS: amLODIPine 5 MG Tablet PO (10:24)
[2017-09-26] MEDS: Pantoprazole Sodium 20 MG Tablet PO ×2 (10:24→21:49)
--- NOTE | 2017-09-26 12:36 | CASEMGMT ---
RN CM Note. PT/OT notes reviewed. Discussed SNF for short term rehab with pt. He adamantly refuses and states he will be going home on dc. Discussed home health, and pt is agreeable to home RN, PT/OT. Dr. Triplett updated- feels pt would benefit from SNF stay. Will speak with pt. -[facility]Network facilities include: [facility], [facility], [facility], [facility]. Home Health: [facility], [facility] [place]. -Will continue to follow and assist with discharge planning. Pardeep MANCINI RN AC
[2017-09-26] MEDS: Metoprolol Tartrate 25 MG Tablet PO (21:48)
[2017-09-27] VITALS (14 sets, daily range): BP systolic 127–153; BP diastolic 68–91; PULSE 73–103; RESP 18–24; TEMP 36.6–36.9; O2SAT 84–95
[2017-09-27] MEDS: Ipratropium/Albuterol Sulfate 3 ML AMPUL.NEB INHALATION ×3 (04:13→14:03)
[2017-09-27] MEDS: Piperacil/Tazobactam 3.375 GM/50 ML ML IV (06:35)
[2017-09-27 06:50] LABS: Absolute Lymphocyte Count 0.92 X10^3/ul (0.83-4.51); Hematocrit 29.1 % (40-54); Hemoglobin 9.4 g/dl (13.0-16.5); Lymphocyte # 0.92 X10^3/ul (4.0); Lymphocyte % 11.9 % (19-41); Mean Corp Hgb Conc 32.3 g/gl (32-36); Mean Corpuscular Hgb 31.8 pg (27.0-32.0); Mean Corpuscular Volume 98.3 fL (80-94); Monocyte# 0.74 X10^3/uL; Monocyte% 9.6 % (0-10); Neutrophil # 6.02 X10^3/uL (2.7-7.7); Neutrophil % 78.1 % (47-70); Platelet Count 275 K/mm3 (150-450); RBC Distribution Width CV 13.8 % (11.6-14.6); RBC Distribution Width SD 49.2 fl (35.1-43.9); Red Blood Count 2.96 M/mm3 (4.6-6.2); White Blood Count 7.7 K/mm3 (4.4-11.0)
[2017-09-27 06:51] LABS: POSITIVE COUNT NO; POSITIVE DIFFERENTIAL NO; POSITIVE MORPHOLOGY NO
[2017-09-27 07:19] LABS: BUN 16 mg/dL (7-18); Creatinine, Serum 0.97 mg/dL (0.70-1.30); Estimated Creatinine Clearance 85.76 ml/min; Glucose 111 mg/dL (74-106)
[2017-09-27 07:20] LABS: ALB/GLOB Ratio 0.5 RATIO (0.9-2.4); AST(SGOT) 78 U/L (15-37); Alanine Aminotransfer ALT/SGPT 66 U/L (16-61); Albumin, Serum 2.4 g/dL (3.2-5.0); Alkaline Phosphatase 128 U/L (45-117); Anion Gap 10 (5-15); BUN/Creat Ratio 16.4 RATIO (10-20); Calcium,Total 8.6 mg/dL (8.5-10.1); Chloride 98 mmol/L (98-107); EST Glomerular Filtration Rate 81 mL/min (>60); Est Glom Filt Rate - Afr Amer 98 mL/min (>60); Globulin 4.5 g/dL (2.2-4.2); Magnesium 1.9 mg/dL (1.6-2.6); Phosphorus 3.2 mg/dL (2.5-4.9); Potassium 4.7 mmol/L (3.5-5.1); Protein, Total 6.9 g/dL (6.4-8.2); Sodium Level 134 mmol/L (136-145)
[2017-09-27] MEDS: Ferrous Gluconate 325 MG Tablet PO (09:16)
[2017-09-27] MEDS: Calcium Carbonate 500 MG Tablet 1000 MG PO (09:17)
[2017-09-27] MEDS: Folic Acid 1 MG Tablet PO (09:17)
[2017-09-27] MEDS: Furosemide 20 MG Tablet 10 MG PO (09:18)
[2017-09-27] MEDS: Heparin Injection (Vial) 5,000 UNIT/ML VIAL 5000 UNIT SC (09:18)
[2017-09-27] MEDS: Metoprolol Tartrate 25 MG Tablet 50 MG PO (09:18)
[2017-09-27] MEDS: amLODIPine 5 MG Tablet PO (09:19)
[2017-09-27] MEDS: Pantoprazole Sodium 20 MG Tablet PO (09:19)
[2017-09-27] MEDS: guaiFENesin 1,200 MG Tablet 1200 MG PO (09:19)
[2017-09-27] MEDS: 0.9% NaCl Peripheral Flush Adult/Peds IV (09:19)
[2017-09-27] MEDS: Lisinopril 20 MG Tablet PO (09:19)
--- NOTE | 2017-09-27 11:32 | PN_ITS ---
Patient Problems: Active and Suspected Problems (Last Reviewed 08/21/17 @ 09:20 by Cathy Fiore NP-C) Acute respiratory failure with hypoxia (Acute) Hospital-acquired pneumonia (Acute) Enteritis (Acute) Hypomagnesemia (Acute) Hypocalcemia (Acute) Hyponatremia (Acute) Hypokalemia (Acute) COPD exacerbation (Acute) Severe sepsis (Acute) Bronchogenic cancer of left lung (Suspected) Subjective: Patient did okay overnight. Patient has yet to have a bowel movement during this hospitalization. Patient feels subjective improvement in dyspnea compared to yesterday. Patient denies any chest pain. Patient has had some coughing, but minimal production. - Physical Exam General: Alert, Oriented x3, Cooperative, No apparent distress, - - Heart HEENT: Atraumatic, PERRLA, EOMI, Normocephalic Oral: Moist Mucosa, No Gingival or Mucosal Lesions/ Ulcerations Neck: Supple, No JVD, No Nodes, Trachea Midline Lungs: No rhonchi, No wheeze, No rales, Diminished Cardiovascular: Regular rate, Regular Rhythm, Normal S1, Normal S2, No murmurs, No rub noted, No Gallop Abdomen: Bowel Sounds Present, Soft, Non Tender, Non-Distended Extremities: No cyanosis, Clubbing, Edema Skin: No rashes, No breakdown Musculoskeletal: No Tenderness to Palpation of Joints or Extremities Lymphatic: No Cervical, Supraclavicular, or Inguinal Adenopathy Neurological: Cranial nerves II-XII grossly intact, Neuro grossly intact, Motor Exam 5/5 strength throughout Psych/Mental Status: Alert and oriented to time, place, person, mood and affect Vital Signs Temp Pulse Resp BP Pulse Ox 36.7 C 83 18 127/68 H 87 09/27/17 09:30 09/27/17 10:47 09/27/17 09:30 09/27/17 09:30 09/27/17 11:10 Oxygen Flow Rate (L/min) [ 6 AMBULATION with Oxygen] Oxygen Flow Rate (L/min) 4 Oxygen Delivery Method Nasal Cannula Weight: 83.8 kg Body Mass Index (BMI) 21.5 Intake and Output for Last 24 Hours 09/25/17 09/26/17 09/27/17 23:59 23:59 23:59 Intake Total 3161 / 3161 1894.7 / 1894.7 556 / 556 Output Total 1375 / 1375 1850 / 1850 Balance 1786 / 1786 44.7 / 44.7 556 / 556 Microbiology Past 72 Hours 09/24/17 17:40 Gram Stain - Final Sputum, Expectorated/Coughed Respiratory Culture - Final Achromobacter denitrificans Moraxella(Anjelica.)Catarrhalis 09/24/17 13:24 Respiratory Panel (PCR) - Final Mucosa - Nose 09/24/17 17:00 Streptococcus pneumoniae Antigen (M - Final Urine, Random 09/24/17 17:00 Legionella Antigen - Final Urine, Random Laboratory Tests Past 24 Hrs 09/27/17 09/27/17 06:38 06:38 WBC 7.7 RBC 2.96 L Hgb 9.4 L Hct 29.1 L MCV 98.3 H MCH 31.8 MCHC 32.3 RDW 13.8 RDW Differential 49.2 H Plt Count 275 MPV 8.0 Immature Gran % (Auto) 0.400 Neut % (Auto) 78.1 H Lymph % (Auto) 11.9 L [place] % (Auto) 9.6 Eos % (Auto) 0.0 Baso % (Auto) 0.0 Absolute Neuts (auto) 6.0 Absolute Lymphs (auto) 0.92 Total Counted Not Reportable Sodium 134 L Potassium 4.7 Chloride 98 Carbon Dioxide 26.0 Anion Gap 10 BUN 16 Creatinine 0.97 Estim Creat Clear Calc 85.76 Est GFR (MDRD) Af Amer 98 Est GFR (MDRD) Non-Af 81 BUN/Creatinine Ratio 16.4 Glucose 111 H Calcium 8.6 Phosphorus 3.2 Magnesium 1.9 Total Bilirubin 0.50 AST 78 H ALT 66 H Alkaline Phosphatase 128 H Total Protein 6.9 Albumin 2.4 L Globulin 4.5 H Albumin/Globulin Ratio 0.5 L Medical Necessity - Tobacco Use Smoking Status: Current every day smoker Tobacco Use: Cigarettes Assessment/Plan All Active Problems (Last Reviewed 08/21/17 @ 09:20 by Cathy Fiore NP-C) Acute respiratory failure with hypoxia (Acute) Hospital-acquired pneumonia (Acute) Enteritis (Acute) Hypomagnesemia (Acute) Hypocalcemia (Acute) Hyponatremia (Acute) Hypokalemia (Acute) COPD exacerbation (Acute) Severe sepsis (Acute) Anemia associated with acute blood loss (Acute) Acute normocytic severe anemia (Acute) RECOMMENDATIONS: 1. Transition to p.o. steroids and wean over 12-14 days 2. Continue mucolytic and bronchodilators 3. Aggressive electrolyte repletion 4. Wean oxygen to keep saturations 88-92% 5. Consider transition to p.o. Augmentin and Bactrim IMPRESSIONS: 1. Acute on chronic respiratory failure secondary to COPD exacerbation Recent history of MRSA pneumonia and PET scan does show some hypermetabolic areas in the left lower lobe. Unclear if this represents residual infection versus metastasis of spiculated nodule. Patient is on empiric antibiotics, steroids and bronchodilators at this time. Patient continues to improve. Patient has grown Moraxella which is a known pulmonary pathogen. Patient also has Achromobacter growing that is a gram-positive. Bactrim and Augmentin should cover both organisms. 2. Chronic diastolic congestive heart failure Patient does have a history of chronic diastolic congestive heart failure. Patient does not have rales on exam at this time, but does have significantly diminished breath sounds, so this may be difficult to delineate. Patient tolerating p.o. well. Patient can be reinitiated on baseline CHF medications from my perspective. 3. Spiculated left upper lobe nodule Patient will be very challenging to obtain a tissue biopsy. Patient does not have any mediastinal lymphadenopathy and left upper lobe nodule is approximately 1 cm away from the airway surrounded by emphysematous changes. Patient would be a high clinical risk for pneumothorax. Patient may be a candidate for navigational bronchoscopy, but this could not be offered at [facility]. If patient was found to have positive mediastinal nodes on endobronchial ultrasound, patient would likely receive palliative measures as he does not appear to have a functional status to tolerate systemic chemotherapy. 4. Hypomagnesemia/hypocalcemia/hypokalemia/hyponatremia Unclear if electrolyte abnormalities are secondary to refeeding versus diarrheal losses versus possible paraneoplastic syndrome. Patient appears to be responding to calcium supplementation. 5. Enteritis of unclear etiology Patient reported one-month history of diarrhea. Patient still has not had a bowel movement. Would not recommend contact precautions or obtaining testing for C. difficile as it would be highly unlikely that pathologic infection with C. difficile would have 3 days of no stool. 6. History of GI bleed/history of PE/hypertension/continued tobacco abuse Complicates care, management, recovery and prognosis. Patient currently only on DVT prophylaxis. Code Visit Inpatient E&M: 27574 Subs Hosp L3
--- NOTE | 2017-09-27 12:24 | NURSING ---
home oxygen testing pt wears 4L at home. at rest pt was 95% on 4L. ambulation on 4L, sats were 84% ambulation on 6L, sats were 87%.
[2017-09-27] MEDS: predniSONE 20 MG Tablet 40 MG PO (12:44)
--- NOTE | 2017-09-27 13:37 | CASEMGMT ---
Addendum entered by Kasey Hinson 09/27/17 16:27: Confirmation of fax going through to [facility] received, although Kelvin @ [facility] states did not receive faxed information. Fax number confirmed. Information faxed again x 2 today and Kelvin reports still has not received the faxes and states he will look into this issue and will notify CM tomorrow if information needs re-faxed to them. TRAN BAUTISTA faxed discharge summary and discharge instructions to [facility] @ [phone]. Original Note: Addendum entered by Kasey Hinson 09/27/17 16:22: Call received from Kelvin @ [facility] stating Insurance approved pt for HHC and start of care will be Saturday 09/[address] Celeste was made aware [facility] not able to begin start of care until 09/30 and is agreeable to this. Pt also made aware of start of care being Sat 09/30. Original Note: TRAN BAUTISTA NOTE: Discussion with pt and who is @ bedside. Neither pt nor are agreeable to SNF, but they both state they do feel pt would benefit from HHC and have no preference as to what agency. TRAN BAUTISTA made referral to [facility] in [place] and they are able to accept pt for Retirement, PT, and OT and aware probable discharge is today 09/27. Face sheet, insurance information, H/P, progress note, and HHC order all faxed to [facility]. Pt made aware [facility] will be providing HHC services. Pt currently on O2 @ 4L/M N/C @ rest. Confirmed with [facility] pt does have home O2 via [facility] but their current orders are for 2L/M @ rest and 3 L/M portable. Home O2 qualification testing completed by TRAN and Dr Celeste made aware of results. New orders received from Dr Celeste and faxed to [facility]. Per orders from Dr Celeste, O2 is not to exceed 6 L/M. TRAN BAUTISTA spoke with RT @ [facility] and confirmed they received new orders. RT phoned TRAN BAUTISTA back and stated he was able to contact pt's and O2 would be delivered to pt's residence today 09/27. Sd BSN RN CM
[2017-09-27] MEDS: Smz/Tmp Ds Tablet 1 TABLET PO (14:06)
[2017-09-27] MEDS: Amox/Clavulanate 875 MG Tablet PO (14:06)
--- NOTE | 2017-09-27 14:57 | PCM.HP.ID ---
Problem List (1) COPD exacerbation Status: Acute Reason for Consult: machobacter Consulted by: Dr. Hyman History of Present Illness: The patient is a 72 year old M with lung cancer and recent admit with mrsa pneumonia who presented to ED 09/24 with 4-5 days of worsened SOB, green sputum, fever/chills, and diarrhea. Diarrhea now resolved. Was initially admitted to icu on vanc/zosyn and solumedrol. Now feeling better, breathing easier. Remains on zosyn. Additional history obtained from at bedside. Full ROS performed and neg except as noted above. - Medical History Past Medical History (Chronic Problems): Chronic Problems (Last Reviewed 08/21/17 @ 09:20 by ANGEL Amaya) History of artificial eye lens (Chronic) Smoking (Chronic) Barretts esophagus (Chronic) History of peptic ulcer disease (Chronic) Pulmonary embolism (Chronic) Off anticoagulation secondary to GI bleed Chronic respiratory failure (Chronic) COPD (chronic obstructive pulmonary disease) (Chronic) Hypertension (Chronic) Allergies/Adverse Reactions: Allergies No Known Allergies Allergy (Verified 09/24/17 08:45) Home Medications: Ambulatory Orders Medication Instructions Recorded Amlodipine Besylate 5 mg PO DAILY 09/22/13 Furosemide 10 mg PO DAILY 09/22/13 Lisinopril 20 mg PO BID 09/22/13 Metoprolol Tartrate 50 mg PO DAILY 09/22/13 Albuterol IH (ProAir) [Proair Hfa] 2 puff INHALATION Q4H PRN PRN 01/04/17 Tiotropium [place] [Spiriva 18 MCG] 1 puff INHALATION DAILY 01/04/17 Nitroglycerin 0.4 mg SL Q5M PRN 02/17/17 Omeprazole [Prilosec] 20 mg PO BID 02/17/17 Fluticasone/Salmeterol [Advair 1 puff INHALATION BID 08/07/17 250/50 Mcg Diskus] Metoprolol Tartrate 25 mg PO QHS 08/07/17 - Social History SMOKING STATUS:: Current every day smoker Vital Signs Temp Pulse Resp BP Pulse Ox 98.4 F 85 20 H 153/91 H 95 09/27/17 11:30 09/27/17 14:03 09/27/17 14:03 09/27/17 11:30 09/27/17 11:30 Oxygen Flow Rate (L/min) [ 4 AMBULATION with Oxygen] Oxygen Flow Rate (L/min) 4 Oxygen Delivery Method Nasal Cannula Weight: 83.8 kg Body Mass Index (BMI) 21.5 Microbiology Past 72 Hours 09/24/17 17:40 Gram Stain - Final Sputum, Expectorated/Coughed Respiratory Culture - Final Achromobacter denitrificans Moraxella(Anjelica.)Catarrhalis 09/24/17 13:24 Respiratory Panel (PCR) - Final Mucosa - Nose 09/24/17 17:00 Streptococcus pneumoniae Antigen (M - Final Urine, Random 09/24/17 17:00 Legionella Antigen - Final Urine, Random Laboratory Tests Past 24 Hrs 09/27/17 09/27/17 06:38 06:38 WBC 7.7 RBC 2.96 L Hgb 9.4 L Hct 29.1 L MCV 98.3 H MCH 31.8 MCHC 32.3 RDW 13.8 RDW Differential 49.2 H Plt Count 275 MPV 8.0 Immature Gran % (Auto) 0.400 Neut % (Auto) 78.1 H Lymph % (Auto) 11.9 L [place] % (Auto) 9.6 Eos % (Auto) 0.0 Baso % (Auto) 0.0 Absolute Neuts (auto) 6.0 Absolute Lymphs (auto) 0.92 Total Counted Not Reportable Sodium 134 L Potassium 4.7 Chloride 98 Carbon Dioxide 26.0 Anion Gap 10 BUN 16 Creatinine 0.97 Estim Creat Clear Calc 85.76 Est GFR (MDRD) Af Amer 98 Est GFR (MDRD) Non-Af 81 BUN/Creatinine Ratio 16.4 Glucose 111 H Calcium 8.6 Phosphorus 3.2 Magnesium 1.9 Total Bilirubin 0.50 AST 78 H ALT 66 H Alkaline Phosphatase 128 H Total Protein 6.9 Albumin 2.4 L Globulin 4.5 H Albumin/Globulin Ratio 0.5 L - Other Studies Radiology: [] reviewed Other Studies: [] Route of nutrition/ use of supplements: [] Nutritional Intake: [] IV Site: [] Knowles Catheter: [] - Physical Exam General: Alert, Oriented x3, Cooperative HEENT: Atraumatic, PERRLA, EOMI Neck: Supple, No Nodes Lungs: Diminished, Wheezes Cardiovascular: Regular rate, Regular Rhythm Abdomen: Bowel Sounds Present, Soft, Non Tender, Non-Distended Extremities: No edema Skin: No rashes IV Site: Peripheral, without redness Musculoskeletal: No Tenderness to Palpation of Joints or Extremities Neurological: Cranial nerves II-XII grossly intact - Assessment/Plan Antibiotics: [] Assessment/Plan: [] Active and Suspected Problems (Last Reviewed 08/21/17 @ 09:20 by Cathy Fiore, VIC-C) Acute respiratory failure with hypoxia (Acute) Hospital-acquired pneumonia (Acute) Enteritis (Acute) Hypomagnesemia (Acute) Hypocalcemia (Acute) Hyponatremia (Acute) Hypokalemia (Acute) COPD exacerbation (Acute) Severe sepsis (Acute) Bronchogenic cancer of left lung (Suspected) COPD exacerbation - sputum with heavy GPC on gram stain, cx showing moraxella and achromobacter. Much improved on zosyn. Ok for d/c home on short course (3 days) of bactrim and augmentin. Course started 09/24. Thank you, d/w Dr. Hyman and nursing.
--- NOTE | 2017-09-27 15:10 | PCM.DC ---
- Discharge Diagnoses Current Active Problems: Current Active and Chronic Problems (Last Reviewed 08/21/17 @ 09:20 by ANGEL Amaya) Acute respiratory failure with hypoxia (Acute) Hospital-acquired pneumonia (Acute) Enteritis (Acute) Hypomagnesemia (Acute) Hypocalcemia (Acute) Hyponatremia (Acute) Hypokalemia (Acute) COPD exacerbation (Acute) Severe sepsis (Acute) You will use the following diet at home:: Cardiac Your food should be the consistency of: Regular Discharge Activity: Return to Normal Activity Weight Bearing Status: Weight bearing as tolerated Call your doctor if you observe: Fever of 101 or Higher, Shortness of breath, Dizziness, Fainting spells, Chest pain, Increased palpitations (irregular heartbeat), Uncontrolled pain Additional Instructions: Use oxygen at 4 L, may go up to 6 L with activity to maintain oxygen saturation between 88-92%. Allergies/Adverse Reactions: Allergies No Known Allergies Allergy (Verified 09/24/17 08:45) Medications to take at Discharge Amlodipine Besylate 5 mg PO DAILY 09/22/13 Furosemide 10 mg PO DAILY 09/22/13 Lisinopril 20 mg PO BID 09/22/13 Metoprolol Tartrate 50 mg PO DAILY 09/22/13 Albuterol IH (ProAir) [Proair Hfa] 2 puff INHALATION Q4H PRN PRN 01/04/17 Tiotropium [place] [Spiriva 18 MCG] 1 puff INHALATION DAILY 01/04/17 Nitroglycerin 0.4 mg SL Q5M PRN 02/17/17 Omeprazole [Prilosec] 20 mg PO BID 02/17/17 Fluticasone/Salmeterol [Advair 250/50 Mcg Diskus] 1 puff INHALATION BID 08/07/17 Metoprolol Tartrate 25 mg PO QHS 08/07/17 Amox/Clavulanate Tablet [Augmentin Tablet] 875 mg PO BID #6 tab 09/27/17 Calcium Carbonate [Tums] 1,000 mg PO BIDCM #60 tab 09/27/17 Ferrous Gluconate 325 mg PO BIDCM #90 tab 09/27/17 Folic Acid 1 mg PO DAILY@0800 #30 tab 09/27/17 Magnesium Oxide 400 mg PO BID #10 tab 09/27/17 Prednisone 10 mg PO DAILY.TCU #30 tab 09/27/17 Smz/Tmp Ds [Bactrim Ds] 1 tab PO BID #6 tab 09/27/17 The following prescriptions were given: Folic Acid 1 mg PO DAILY@0800 #30 tab Prednisone 10 mg PO DAILY.TCU #30 tab Amox/Clavulanate Tablet [Augmentin Tablet] 875 mg PO BID #6 tab Calcium Carbonate [Tums] 1,000 mg PO BIDCM #60 tab Ferrous Gluconate 325 mg PO BIDCM #90 tab Magnesium Oxide 400 mg PO BID #10 tab Smz/Tmp Ds [Bactrim Ds] 1 tab PO BID #6 tab Primary Care Physician: Mitch Kurtz MD [Primary Care Provider] - Please follow up with your Primary Care Physician in: 1 week. Test Results: Test results from this visit will be discussed in further detail at your follow-up appointment, if applicable.
--- NOTE | 2017-09-27 15:12 | PCM.DC.SUM ---
Discharge Date and Diagnosis Date of Admission: 09/24/17 Date of Discharge: 09/27/17 - Primary Discharge Diagnosis Active and Suspected Problems (Last Reviewed 08/21/17 @ 09:20 by ANGEL Amaya) #1 acute on chronic hypoxic respiratory failure. #2 severe sepsis secondary to healthcare associated pneumonia. #3 Moraxella catarrhalis/Achromobacter denitrificans healthcare associated pneumonia. #4 probable enteritis. #5 severe hypomagnesemia, hypocalcemia, hypokalemia and hyponatremia. #6 spiculated lung nodules. - Secondary Discharge Diagnosis Chronic Problems (Last Reviewed 08/21/17 @ 09:20 by Cathy Fiore NP-C) History of artificial eye lens (Chronic) Smoking (Chronic) Barretts esophagus (Chronic) History of peptic ulcer disease (Chronic) Pulmonary embolism (Chronic) Off anticoagulation secondary to GI bleed Chronic respiratory failure (Chronic) COPD (chronic obstructive pulmonary disease) (Chronic) Hypertension (Chronic) Hospital Course and Treatment Imaging Results: Clinical Impression(s) from Imaging Studies Chest X-Ray 09/24/17 09:04 IMPRESSION: COPD. Interstitial prominence, could represent a component of chronic interstitial disease with superimposed edema. Electronically Signed: Christiano Curry DO at 9:56 EDT Tel , Service support , Abdomen/Pelvis CT 09/24/17 09:55 IMPRESSION: 1. Bibasilar infiltrates suggesting infection 2. Nonenhancing right renal cyst 3. Fluid-filled loops of small bowel suggesting enteritis. No evidence of obstruction 4. Bowel containing right inguinal hernia without evidence of obstruction Electronically Signed: Christiano Curry DO at 11:41 EDT Tel , Service support , Chest CTA 09/24/17 09:55 IMPRESSION: 1. No CTA demonstrated pulmonary embolism or arterial dissection. 2. New left basilar airspace consolidation probably representing pneumonia. 3. Improved aeration of the right lung base since the previous study. 4. Sequela of severe centrilobular emphysema. 5. Spiculated left apical pulmonary mass is similar to previous study and likely neoplastic. Electronically Signed: Karla Christensen MD at 11:53 EDT , Service support , Thoracic Spine X-Ray 09/25/17 08:35 IMPRESSION: Multilevel degenerative disc disease without acute findings Electronically Signed: Christiano Curry DO at 18:18 EDT Tel , Service support , Lumbar Spine X-Ray 09/25/17 15:30 IMPRESSION: Age indeterminate compression fracture of L4. Degenerative changes. Electronically Signed: Christiano Curry DO at 18:19 EDT Tel , Service support , Dr. Hyman, pulmonary and critical care. Dr. higgins, oncology. Dr. Min, infectious disease. Operations: None Procedures: EKG Summary of Care Provided: Patient seen and examined on the day of discharge and appeared to be stable to be discharged home. He reported continued slow improvement of his shortness of breath as well as cough and his pulse ox is maintained on 4 L of oxygen. His other vital signs are stable. - Physical Exam General: Alert, Oriented x3, Cooperative, minimally short of breath, on oxygen. HEENT: Atraumatic, PERRLA, EOMI. Neck: Supple, No JVD, Negative Carotid Bruits, Trachea Midline, Thyroid Normal. Lungs: Decreased breath sounds bilateral, bilateral scattered rhonchi, No wheeze, No rales. Cardiovascular: Regular rate, Regular Rhythm, Normal S1, Normal S2, PMI Normal. Abdomen: Bowel Sounds Present, Soft, Non Tender, Non-Distended, No Hepato-splenomegaly. Extremities: No clubbing, No cyanosis, No edema Skin: No rashes, No breakdown Neurological: Neuro grossly intact Vital Signs are stable. Hospital course: The patient is a 72 year old M admitted because of shortness of breath and he was found to have healthcare associated pneumonia and acute COPD exacerbation complicated by acute on chronic hypoxic respiratory failure as well as severe sepsis. On admission, chest x-ray revealed findings consistent with COPD as well as probable interstitial lung disease. CTA of the chest showed no evidence of PE or dissection, revealed new left basilar airspace consolidation and spiculated left apical lung mass. Patient was treated with IV steroids, IV antibiotics and bronchodilators as well as BiPAP. With steroids, bronchodilators and antibiotics, patient's respiratory status improved and he was able to come down on oxygen at 4 L which is his baseline at home. At home, he has been using oxygen at 4 L at rest and he goes up to 6 L with activity. His blood culture showed no growth in 48 hours. Pneumococcal and Legionella antigen were negative. Respiratory panel for viruses were negative. Sputum culture revealed Moraxella catarrhalis and Achromobacter Denitrificans. Infectious disease consulted and recommended to start patient on Bactrim and Augmentin for short course of 3 days from the date of discharge. Patient complains of abdominal pain for which CT scan abdomen and pelvis with IV contrast revealed fluid-filled loops of small bowel suggesting enteritis without evidence of obstruction. Oncology consulted for the spiculated left lung nodule and reviewed the CT scan chest as well as PET scan that was done recently and revealed increased activity in the left upper lobe of the spiculated mass and that is highly suspicious for lung cancer and he recommended pulmonary consult. Dr. Hyman consulted and recommended to have the bronchoscopy versus endobronchial ultrasound with his senior database programmer, Dr. Martínez after he recovered from the pneumonia which can be done as outpatient. According to oncology, the patient is not a candidate for palliative chemotherapy. Patient was found to have significant electrolyte abnormalities including severe hypomagnesemia, hypokalemia, hypocalcemia and hyponatremia. His serum electrolytes were replaced and corrected as per protocol. Patient discharged to home with home health in a stable medical condition, discharged on oxygen at 4 L, and requested to go up to 6 L with activity, discharged on 3 days of Bactrim and Augmentin to complete treatment for pneumonia, discharged on tapering course of prednisone, plan to follow-up with his senior database programmer at [facility] regarding the left lung nodule, follow-up with his PCP in 1 week, prescription was given for calcium supplements as well as magnesium supplement and iron supplement, order given to repeat CBC, BMP and serum magnesium in 1 week. Discharge Activity: Return to Normal Activity Weight Bearing Status: Weight bearing as tolerated Call your doctor if you observe: Fever of 101 or Higher, Shortness of breath, Dizziness, Fainting spells, Chest pain, Increased palpitations (irregular heartbeat), Uncontrolled pain Home Medications: Medications to take at Discharge Amlodipine Besylate 5 mg PO DAILY 09/22/13 Furosemide 10 mg PO DAILY 09/22/13 Lisinopril 20 mg PO BID 09/22/13 Metoprolol Tartrate 50 mg PO DAILY 09/22/13 Albuterol IH (ProAir) [Proair Hfa] 2 puff INHALATION Q4H PRN PRN 01/04/17 Tiotropium [place] [Spiriva 18 MCG] 1 puff INHALATION DAILY 01/04/17 Nitroglycerin 0.4 mg SL Q5M PRN 02/17/17 Omeprazole [Prilosec] 20 mg PO BID 02/17/17 Fluticasone/Salmeterol [Advair 250/50 Mcg Diskus] 1 puff INHALATION BID 08/07/17 Metoprolol Tartrate 25 mg PO QHS 08/07/17 Amox/Clavulanate Tablet [Augmentin Tablet] 875 mg PO BID #6 tab 09/27/17 Calcium Carbonate [Tums] 1,000 mg PO BIDCM #60 tab 09/27/17 Ferrous Gluconate 325 mg PO BIDCM #90 tab 09/27/17 Folic Acid 1 mg PO DAILY@0800 #30 tab 09/27/17 Magnesium Oxide 400 mg PO BID #10 tab 09/27/17 Prednisone 10 mg PO DAILY.TCU #30 tab 09/27/17 Smz/Tmp Ds [Bactrim Ds] 1 tab PO BID #6 tab 09/27/17 Following Prescrptions Were Given to Patient: Folic Acid 1 mg PO DAILY@0800 #30 tab Prednisone 10 mg PO DAILY.TCU #30 tab Amox/Clavulanate Tablet [Augmentin Tablet] 875 mg PO BID #6 tab Calcium Carbonate [Tums] 1,000 mg PO BIDCM #60 tab Ferrous Gluconate 325 mg PO BIDCM #90 tab Magnesium Oxide 400 mg PO BID #10 tab Smz/Tmp Ds [Bactrim Ds] 1 tab PO BID #6 tab Primary Care Physician: Mitch Kurtz MD [Primary Care Provider] - Please follow up with your Primary Care Physician in: 1 week. Disposition: Home with Home Health Minutes spent on discharge:: 38 Patient Condition:: Stable Medical Necessity - Tobacco Use Smoking Status: Current every day smoker Tobacco Use: Cigarettes Meaningful Use Info Meaningful Use Diagnoses (Choose all that apply): None applicable Code Visit Inpatient E&M: 30721 Disch Hosp
--- NOTE | 2017-09-28 10:14 | CASEMGMT ---
Phone call placed to [facility]. Spoke with Taryn and she confirmed they did receive faxes that were sent yesterday 09/27, which included clinicals, discharge instructions, and summary. Sd MANCINI RN CM
--- NOTE | 2017-09-29 14:21 | CASEMGMT ---
TRAN BAUTISTA Discharge F/U Phone Call LACE: 13 Strata: 4 Discharge date: 09/27/17 Call date: 09/29/17 Duration: Admission dx: Respiratory failure, HCAP/COPD, Enteritis Pt still c/o pain in back 'from not moving around while I was there.' Pt states is improving slowly and states no questions regarding discharge instructions or medications at this time. Pt states has f/u appts. scheduled and plans on keeping them. Pt states that [facility] came out last pm and is scheduled [facility]. Pt voices no suggestions for [facility] at this time. Pt voices no further questions/concerns/needs at this time. SStaten TRAN BAUTISTA
== END 2017-09-27 17:02 | disposition home health service (06) | DRG 177 ==
LOC: ED 09:21 → ICU 13:00 → PCU 09-26 10:13
PROVIDERS: Admitting Provider Family Medicine; Emergency Provider Emergency Medicine; Family Provider Family Medicine; PCP Family Medicine; Visit Provider Hospitalist
DX: J15.6 Pneumonia due to other Gram-negative bacteria (principal); J96.21 Acute and chronic respiratory failure with hypoxia; E87.1 Hypo-osmolality and hyponatremia; I50.32 Chronic diastolic (congestive) heart failure; J44.0 Chronic obstructive pulmonary disease with (acute) lower respiratory infection; J44.1 Chronic obstructive pulmonary disease with (acute) exacerbation; Z99.81 Dependence on supplemental oxygen; E83.42 Hypomagnesemia; E83.51 Hypocalcemia; E87.6 Hypokalemia; I11.0 Hypertensive heart disease with heart failure; Z86.14 Personal history of Methicillin resistant Staphylococcus aureus infection; Z86.711 Personal history of pulmonary embolism; Z87.11 Personal history of peptic ulcer disease; Y95 Nosocomial condition; K52.9 Noninfective gastroenteritis and colitis, unspecified; R91.8 Other nonspecific abnormal finding of lung field; F17.210 Nicotine dependence, cigarettes, uncomplicated; D53.9 Nutritional anemia, unspecified
CPT/HCPCS: 36415; 36600; 71045; 71275; 72072; 72100; 74177; 80048; 80053; 82330; 82607; 82728; 82746; 82803; 83540; 83550; 83605; 83690; 83735; 83880; 84100; 84484; 85025; 85610; 85730; 87040; 87070; 87077; 87186; 87205; 87449; 87633; 87641; 93005; 94002; 94640; 94667; 94668; 97116; 97163; 97166; 97530; 97535; 97802; 99283; 99406; J7030; J7050; Q9967; A4216; J0610; J3475

== ENCOUNTER 2017-12-20 03:16 | Inpatient (IN) | payer MEDICARE, SELFPAY ==
[2017-12-20] VITALS (23 sets, daily range): BP systolic 106–153; BP diastolic 58–83; PULSE 76–116; RESP 17–22; TEMP 36.4–37.1; O2SAT 83–98; BMI 24.8; BMI 22.9; BMI 24.9
[2017-12-20] MEDS: Ondansetron 4 MG/2 ML Vial IV (03:35)
[2017-12-20] MEDS: Morphine 4 MG/ML Syringe IV (03:36)
--- NOTE | 2017-12-20 03:37 | EKG12_ITS ---
Test Reason : FALL Blood Pressure : / mmHG Vent. Rate : 101 BPM Atrial Rate : 101 BPM P-R Int : 148 ms QRS Dur : 154 ms QT Int : 406 ms P-R-T Axes : -02 007 102 degrees QTc Int : 526 ms Sinus tachycardia Left bundle branch block Abnormal ECG Confirmed by KAREN CHRISTIANSEN, AMBER ([id number]), electronic news gathering editor ES WHITE ([id number]) on 12/22/2017 3:00:50 PM Referred By: TOM Confirmed By:AMBER JONES MD
--- NOTE | 2017-12-20 03:37 | RAD_ITS ---
HISTORY: S/P FALL C/O RT HIP PAIN EXAM: XR Chest 1 View: COMPARISON: CTA chest 09/24/2017 and chest x-ray 09/24/2017 FINDINGS: Extensive emphysema. Left basilar persistent infiltrate or mass. Left apical persistent infiltrate or mass. Left hemithorax volume loss with mild elevation of the left hemidiaphragm. Possible left hilar enlargement. Prominent pulmonary vascularity which may be secondary to overhead technique. No pneumothorax. Normal heart size. RAD/Chest 1 View (Portable) IMPRESSION: 1. Persistent infiltrates or mass lesions within the left upper arm and left lower lobes. 2. Left hemithorax mild volume loss, which appears a new finding. 3. Extensive emphysema. Prominent pulmonary vascularity which may be related to overhead technique. at 0438 Reported and signed by: Ryhs Medina MD Electronically Signed: Rhys Medina, at 4:36 EST Tel , Service support ,
--- NOTE | 2017-12-20 03:38 | RAD_ITS ---
HISTORY: S/P FALL C/O RT HIP PAIN COMPARISON: None FINDINGS: XR Knee 3 views Crosstable views were obtained and this partly limits evaluation of patellar position. No fracture seen. Mild narrowing of the tibiofemoral medial compartment. Atherosclerotic calcifications. RAD/Knee 1 or 2 Views IMPRESSION: Limited cross table exam. No fracture seen. at 3150 Reported and signed by: Rhys Medina MD Electronically Signed: Rhys Medina, at 4:41 EST Tel , Service support ,
--- NOTE | 2017-12-20 03:38 | RAD_ITS ---
HISTORY: S/P FALL C/O RT HIP PAIN COMPARISON: None FINDINGS: XR Hip Unilateral with Pelvis when performed; 4 views Acute, comminuted right intertrochanteric fracture. Fracture fragments are mildly displaced with secondary coxa vara deformity. Fracture comminution results in isolated fracture fragments at the greater and lesser trochanteric regions. No dislocation. The left hip joint appears preserved. Atherosclerotic calcifications. RAD/HIP, UNI W/ Pelvis 2-3 Views IMPRESSION: Right hip comminuted intertrochanteric fracture. Details above. at 1734 Reported and signed by: Rhys Medina MD Electronically Signed: Rhys Medina, at 4:47 EST Tel , Service support ,
--- NOTE | 2017-12-20 03:54 | NURSING ---
PT AND DO NOT KNOW HOME MEDICATIONS AND DO NOT HAVE A LIST WITH THEM. STATES SHE WILL BRING ONE IN THE AM.
[2017-12-20 03:55] LABS: Mucous, Urine 0 SEEN /hpf (<or=2+); White Blood Cells 0 SEEN /hpf (0-5)
[2017-12-20 04:02] LABS: Color, Urine Yellow (Yellow); Glucose, Dipstick Normal (Normal); Ketone-Dipstick Negative (Negative); Leukocyte Esterase-Dipstick Negative /ul (Negative); Nitrite-Dipstick Negative (Negative); Occult Blood-Urine 10 /ul (Negative); Protein-Dipstick 15 mg/dl (Negative); Urine Bilirubin Dipstick Negative (Negative); Urine Clarity Clear (Clear); Urine Urobilinogen 1 mg/dl (Normal)
[2017-12-20 04:04] LABS: Hematocrit 26.2 % (40-54); Hemoglobin 8.5 g/dl (13.0-16.5); Mean Corp Hgb Conc 32.4 g/gl (32-36); Mean Corpuscular Hgb 31.3 pg (27.0-32.0); Mean Corpuscular Volume 96.3 fL (80-94); Mean Platelet Vol. 8.2 fl (6.2-12.0); Platelet Count 443 K/mm3 (150-450); RBC Distribution Width CV 14.8 % (11.6-14.6); RBC Distribution Width SD 49.4 fl (35.1-43.9); Red Blood Count 2.72 M/mm3 (4.6-6.2); White Blood Count 11.7 K/mm3 (4.4-11.0)
[2017-12-20 04:05] LABS: Differential Indicated MANUAL DIFF; POSITIVE COUNT YES; POSITIVE DIFFERENTIAL NO; POSITIVE MORPHOLOGY YES
[2017-12-20 04:08] LABS: International Normalized Ratio 0.9; Prothrombin Time (Protime)PT. 12.5 SECONDS (11.7-14.9)
--- NOTE | 2017-12-20 04:08 | ED.RN ---
DR SANTOS NOTIFIED OF CALCIUM RESULTS
[2017-12-20 04:09] LABS: Anion Gap 9 (5-15); BUN 13 mg/dL (7-18); BUN/Creat Ratio 14.1 RATIO (10-20); Calcium,Total 6.3 mg/dL (8.5-10.1); Chloride 94 mmol/L (98-107); Creatinine, Serum 0.92 mg/dL (0.70-1.30); EST Glomerular Filtration Rate 86 mL/min (>60); Est Glom Filt Rate - Afr Amer 104 mL/min (>60); Estimated Creatinine Clearance 90.42 ml/min; Glucose 91 mg/dL (74-106); Potassium 3.7 mmol/L (3.5-5.1); Sodium Level 134 mmol/L (136-145)
[2017-12-20 04:10] LABS: Bacteria RARE /hpf (None Seen); Red Blood Cells-Urine 0-5 SEEN /hpf (0-5); Squamous Epithelial Cells - UA 0-5 SEEN /hpf (0-5)
[2017-12-20 04:38] LABS: Eosinophil 9 % (0-5); Lymphocyte 13 % (19-41); Metamyelocyte 1 % (0-1); Monocyte 5 % (0-10); Neutrophil-Band 2 % (0-5); Neutrophil-Segmented 70 % (47-70); Total Cells Counted 100 (MANUAL DIFF)
[2017-12-20 04:39] LABS: Absolute Lymphocyte Count 1.52 X10^3/ul (0.83-4.51); Lymphocyte # 1.52 X10^3/ul (4.0); Platelet Estimate ADEQUATE (ADEQ); Red Cell Morphology NORM C+C NORMAL (NORM C&C)
[2017-12-20 04:40] LABS: Absolute Neutrophil Count 8.4 X10^3/uL (2.0-7.7); Neutrophil # 8.42 X10^3/uL (2.7-7.7)
--- NOTE | 2017-12-20 04:55 | NURSING ---
PHARMACY CALLED FOR CA GLUCONATE.
--- NOTE | 2017-12-20 05:24 | ED.VISSUMM ---
- ER Visit Summary Date of Service: 12/20/17 Chief Complaint: Fall History of Present Illness: The patient is a 72 M who presents after a fall. He tripped while going to the bathroom. He is uncertain if he had tripped over his home oxygen. He is a somewhat poor informant. He complains of pain to the right hip and upper leg. He has not been able to bear weight. There was no prolonged downtime. EMS arrived in about 15 minutes. He does note that he has had some recent fatigue decreased oral intake and diarrhea. No fever chest pain or shortness of breath. Physical Examination: Pulse ox 93% on nasal cannula vitals otherwise normal Moist mucous membranes Heart regular rate and rhythm Lungs clear Abdomen soft Limited painful range of motion of the right hip and knee his right lower extremity is shortened and rotated he has a palpable dorsalis pedis pulse he does have bilateral pedal edema Alert Test Results: EKG shows sinus rhythm at a rate of 101 with a bundle branch block. Labs notable for hemoglobin 8.5. Calcium 6.3. INR normal. Urinalysis normal. Knee x-ray shows no fracture. Right hip x-ray shows comminuted right intertrochanteric hip fracture. Chest x-ray shows persistent infiltrates or mass lesion of the left upper and lower lung and emphysematous changes. Emergency Department Course and Treatment: Patient was given morphine and Zofran for symptoms. His calcium was replaced. Family was aware of left lung masses. There are poor informant but it sounds like he was referred either to [place] or [place] but had not yet followed up. Patient discussed with hospitalist and will be admitted. I am not yet been able to contact orthopedics but they have been paged. Treatment Plan: [] Disposition: Admit Impression: Right hip fracture Hypocalcemia Left lung infiltrate versus mass This note was generated with [employer] dictation software. It may contain incorrect words, spelling, and punctuation that were not noted in review of the chart prior to signing ED Disposition - Plan for ED Patient: Chief Complaint: Lower Extremity Injury
--- NOTE | 2017-12-20 05:28 | ED.DCSUM_ITS ---
- ER Visit Summary Date of Service: 12/20/17 Chief Complaint: Fall History of Present Illness: The patient is a 72 M who presents after a fall. He tripped while going to the bathroom. He is uncertain if he had tripped over his home oxygen. He is a somewhat poor informant. He complains of pain to the rig ht hip and upper leg. He has not been able to bear weight. There was no prolonged downtime. EMS arrived in about 15 minutes. He does note that he has had some recent fatigue decreased oral intake and diarrhea. No fever chest pain or shortness of breath. Physical Examination: Pulse ox 93% on nasal cannula vitals otherwise normal Moist mucous membranes Heart regular rate and rhythm Lungs clear Abdomen soft Limited painful range of motion of the right hip and knee his right lower extremity is shortened and rotated he has a palpable dorsalis pedis pulse he does have bilateral pedal edema Alert Test Results: EKG shows sinus rhythm at a rate of 101 with a bundle branch block. Labs notable for hemoglobin 8.5. Calcium 6.3. INR normal. Urinalysis normal. Knee x-ray shows no fracture. Right hip x-ray shows comminuted right intertrochanteric hip fracture. Chest x-ray shows persistent infiltrates or mass lesion of the left upper and lower lung and emphysematous changes. Emergency Department Course and Treatment: Patient was given morphine and Zofran for symptoms. His calcium was replaced. Family was aware of left lung masses. There are poor informant but it sounds like he was referred either to [place] or [place] but had not yet followed up. Patient discussed with hospitalist and will be admitted. I am not yet been able to contact orthopedics but they have been paged. Treatment Plan: [] Disposition: Admit Impression: Right hip fracture Hypocalcemia Left lung infiltrate versus mass This note was generated with [employer] dictation software. It may contain incorrect words, spelling, and punctuation that were not noted in review of the chart prior to signing ED Disposition - Plan for ED Patient: Chief Complaint: Lower Extremity Injury
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
[2017-12-20 06:30] LABS: Albumin, Serum 1.5 g/dL (3.2-5.0)
[2017-12-20] MEDS: Acetaminophen 325 MG Tablet 650 MG PO ×2 (06:52→20:13)
[2017-12-20] MEDS: Dext 5%-0.45% NS 1,000 ML 50 ML IV (06:52)
[2017-12-20] MEDS: Morphine 2 MG/ML Syringe IV ×2 (06:52→20:13)
[2017-12-20] MEDS: Heparin Injection (Vial) 5,000 UNIT/ML VIAL 5000 UNIT SC ×3 (06:53→22:03)
[2017-12-20] MEDS: Budesonide Respules 0.5 MG/2 ML AMPUL.NEB. INHALATION ×2 (07:29→19:07)
[2017-12-20] MEDS: Ipratropium/Albuterol Sulfate 3 ML AMPUL.NEB INHALATION ×4 (07:29→22:15)
[2017-12-20 08:36] LABS: Vitamin D,25 Hydroxy 19.2 ng/mL (29.95-100.01)
[2017-12-20] MEDS: Calcium Carb/Vitamin D 1 TABLET Tablet PO ×2 (08:56→16:53)
[2017-12-20] MEDS: Ferrous Gluconate 324 MG Tablet PO ×2 (08:56→16:53)
[2017-12-20 09:26] LABS: Magnesium 0.6 mg/dL (1.6-2.6); Phosphorus 2.9 mg/dL (2.5-4.9)
--- NOTE | 2017-12-20 10:00 | ECHOD_ITS ---
Reason For Study: Pre Op Procedure This was a 2D Doppler, Color Flow transthoracic echocardiogram. Technically difficult study. Unable to position patient properly due to hip fracture. No Definity used due to not being able to estimate pressures. Exam performed portable in patient room. Left Ventricle Normal size and thickness. The estimated ejection fraction is 55 %. Septal motion consistent with IVCD. No regional wall motion abnormalities noted. Right Ventricle Severely dilated right ventricle. A moderator band is seen in the right ventricle. Normal systolic function. Atria Normal left atrium. The right atrium is severely enlarged. Normal atrial septum. Mitral Valve The mitral valve is structurally normal. No prolapse or stenosis seen. Tricuspid Valve Normal tricuspid valve. Trivial tricuspid valve insufficiency. Right ventricular systolic pressure estimated to be 34 mmHg. Aortic Valve Trisinus/trileaflet aortic valve. Mild diffuse aortic valve thickening. Pulmonic Valve The pulmonic valve is not well visualized. Great Vessels Normal aortic root. Normal arch. Normal inferior vena cava. Inferior vena cava collapse with sniff. Pericardium/Pleural No pericardial effusion. MMode/2D Measurements & Calculations LVIDd: 5.5 cm IVSd: 1.2 cm Ao root diam: 4.2 cm LVIDs: 4.1 cm LVPWd: 0.91 cm RVDd: 5.8 cm FS: 25.8 % LAV(MOD-bp): 45.1 ml LVAd ap4: 29.3 cm2 SV(MOD-sp4): 31.5 ml LAV(MOD-bp) Indexed: 20.4 ml/m2 EDV(MOD-sp4): 79.6 ml LAV(MOD-sp2): 79.1 ml EDV(sp4-el): 80.9 ml LAV(MOD-sp4): 19.6 ml LVAs ap4: 21.1 cm2 ESV(MOD-sp4): 48.1 ml ESV(sp4-el): 47.9 ml EF(MOD-sp4): 39.6 % EF(sp4-el): 40.8 % SV(sp4-el): 33.0 ml LA A4 area: 10.7 cm2 RA A4 area: 25.3 cm2 Doppler Measurements & Calculations MV E max lester: 98.3 cm/sec Lat Peak E' Lester: 11.0 cm/sec Med Peak E' Lester: 7.3 cm/sec E/E' lat: 9.0 E/E' med: 13.5 Ao V2 max: 152.8 cm/sec LV V1 max: 96.2 cm/sec PA V2 max: 109.8 cm/sec Ao max P.4 mmHg LV V1 max P.7 mmHg Ao V2 mean: 91.2 cm/sec LV V1 mean P.9 mmHg Ao mean P.0 mmHg LV V1 mean: 63.3 cm/sec Ao V2 VTI: 22.8 cm LV V1 VTI: 14.9 cm Interpretation Summary The estimated ejection fraction is 55 %. Severely dilated right ventricle. The right atrium is severely enlarged. Trivial tricuspid valve insufficiency. Right ventricular systolic pressure estimated to be 34 mmHg. Compared to echo report dated 01/04/2017, LV function has remained the same, but RVSP has decreased from 49 to 34 mm Hg. The study was technically difficult. Ordering Physician: Vero Celeste Referring Physician: Mitch Kurtz Performed By: Candelario Poe RCS
--- NOTE | 2017-12-20 10:01 | PCM.PROGNOTE ---
Patient Problems: Active and Suspected Problems (Last Updated 12/20/17 @ 08:07 by Vero Celeste MD) Closed comminuted fracture of right hip (Acute) Subjective: Chief complaint: Follow-up after admission for acute traumatic right hip comminuted intertrochanteric fracture. Patient seen and examined. At this time, his right hip pain is under control. He complained of minimal pain upon movement but nothing at rest. Denies chest pain or shortness of breath. He does have history of chronic respiratory failure and he has been on oxygen at 4 L at home. He has a history of lung nodules and during the last admission, it was recommended to follow-up with his paper cone grader at [facility], Dr. Martínez. According to the patient's , patient was seen by Dr. Cedillo who recommended lung biopsy at [facility] which is probably endobronchial ultrasound procedure which was not done so far. Patient is afebrile, heart rate has been around 100, blood pressure stable, pulse ox is 98% on 4 L. - Physical Exam General: Alert, Oriented x3, Cooperative, - - Minimal shortness of breath. HEENT: Atraumatic, PERRLA, EOMI, Normocephalic Oral: Moist Mucosa, No Gingival or Mucosal Lesions/ Ulcerations Neck: Supple, No JVD, Negative Carotid Bruits, Trachea Midline, Thyroid Normal Size and Texture Lungs: No wheeze, Diminished, Rales, Rhonchi Cardiovascular: Regular rate, Regular Rhythm, Normal S1, Normal S2, PMI Normal Abdomen: Bowel Sounds Present, Soft, Non Tender, Non-Distended, No Hepato-splenomegaly Extremities: No clubbing, No cyanosis, Edema - ++ Edema. Skin: No rashes, No breakdown Lymphatic: No Cervical, Supraclavicular, or Inguinal Adenopathy Neurological: Cranial nerves II-XII grossly intact, Motor Exam 5/5 strength throughout Psych/Mental Status: Normal Affect, Appropriate, Alert and oriented to time, place, person, mood and affect Vital Signs Temp Pulse Resp BP Pulse Ox 98.7 F 101 H 18 111/58 L 98 12/20/17 08:35 12/20/17 08:35 12/20/17 09:09 12/20/17 08:35 12/20/17 09:09 Oxygen Flow Rate (L/min) 4 Oxygen Delivery Method Nasal Cannula Weight: 204 lb 5.896 oz Body Mass Index (BMI) 24.9 Laboratory Tests Past 24 Hrs 12/20/17 12/20/17 12/20/17 03:16 03:16 03:16 WBC 11.7 H RBC 2.72 L Hgb 8.5 L Hct 26.2 L MCV 96.3 H MCH 31.3 MCHC 32.4 RDW 14.8 H RDW Differential 49.4 H Plt Count 443 MPV 8.2 Neut % (Auto) Not Reportable Absolute Neuts (auto) 8.4 H Absolute Lymphs (auto) 1.52 Total Counted 100 Neutrophils % (Manual) 70 Band Neutrophils % 2 Lymphocytes % (Manual) 13 L Monocytes % (Manual) 5 Eosinophils % (Manual) 9 H Metamyelocytes % 1 Diff Path Review May foll Platelet Estimate ADEQUATE RBC Morphology NORM C+C PT 12.5 INR 0.9 Sodium 134 L Potassium 3.7 Chloride 94 L Carbon Dioxide 31.0 Anion Gap 9 BUN 13 Creatinine 0.92 Estim Creat Clear Calc 90.42 Est GFR (MDRD) Af Amer 104 Est GFR (MDRD) Non-Af 86 BUN/Creatinine Ratio 14.1 Glucose 91 Calcium 6.3 L* Ionized Calcium Phosphorus Magnesium Albumin Vitamin D 25-Hydroxy Urine Color Urine Clarity Urine pH Ur Specific [place] Urine Protein Urine Glucose (UA) Urine Ketones Urine Occult Blood Urine Nitrite Urine Bilirubin Urine Urobilinogen Ur Leukocyte Esterase Urine RBC Urine WBC Ur Squamous Epith Cells Urine Bacteria Urine Mucus 12/20/17 12/20/17 12/20/17 03:16 03:16 03:50 WBC RBC Hgb Hct MCV MCH MCHC RDW RDW Differential Plt Count MPV Neut % (Auto) Absolute Neuts (auto) Absolute Lymphs (auto) Total Counted Neutrophils % (Manual) Band Neutrophils % Lymphocytes % (Manual) Monocytes % (Manual) Eosinophils % (Manual) Metamyelocytes % Diff Path Review Platelet Estimate RBC Morphology PT INR Sodium Potassium Chloride Carbon Dioxide Anion Gap BUN Creatinine Estim Creat Clear Calc Est GFR (MDRD) Af Amer Est GFR (MDRD) Non-Af BUN/Creatinine Ratio Glucose Calcium Ionized Calcium Phosphorus Magnesium Albumin 1.5 L Vitamin D 25-Hydroxy 19.2 L Urine Color Yellow Urine Clarity Clear Urine pH 6.0 Ur Specific [place] 1.010 Urine Protein 15 H Urine Glucose (UA) Normal Urine Ketones Negative Urine Occult Blood 10 H Urine Nitrite Negative Urine Bilirubin Negative Urine Urobilinogen 1 H Ur Leukocyte Esterase Negative Urine RBC 0-5 SEEN Urine WBC 0 SEEN Ur Squamous Epith Cells 0-5 SEEN Urine Bacteria RARE Urine Mucus 0 SEEN 12/20/17 12/20/17 06:58 08:38 WBC RBC Hgb Hct MCV MCH MCHC RDW RDW Differential Plt Count MPV Neut % (Auto) Absolute Neuts (auto) Absolute Lymphs (auto) Total Counted Neutrophils % (Manual) Band Neutrophils % Lymphocytes % (Manual) Monocytes % (Manual) Eosinophils % (Manual) Metamyelocytes % Diff Path Review Platelet Estimate RBC Morphology PT INR Sodium Potassium Chloride Carbon Dioxide Anion Gap BUN Creatinine Estim Creat Clear Calc Est GFR (MDRD) Af Amer Est GFR (MDRD) Non-Af BUN/Creatinine Ratio Glucose Calcium Ionized Calcium Pending Phosphorus 2.9 Magnesium 0.6 L* Albumin Vitamin D 25-Hydroxy Urine Color Urine Clarity Urine pH Ur Specific [place] Urine Protein Urine Glucose (UA) Urine Ketones Urine Occult Blood Urine Nitrite Urine Bilirubin Urine Urobilinogen Ur Leukocyte Esterase Urine RBC Urine WBC Ur Squamous Epith Cells Urine Bacteria Urine Mucus Clinical Impression(s) from Imaging Studies Chest X-Ray 12/20/17 03:37 IMPRESSION: 1. Persistent infiltrates or mass lesions within the left upper arm and left lower lobes. 2. Left hemithorax mild volume loss, which appears a new finding. 3. Extensive emphysema. Prominent pulmonary vascularity which may be related to overhead technique. at 3459 Reported and signed by: Rhys Medina MD Electronically Signed: Rhys Medina, at 4:36 EST Tel , Service support , Hip/Pelvis X-Ray 12/20/17 03:38 IMPRESSION: Right hip comminuted intertrochanteric fracture. Details above. at 2552 Reported and signed by: Rhys Medina MD Electronically Signed: Rhys Medina, at 4:47 EST Tel , Service support , Knee X-Ray 12/20/17 03:38 IMPRESSION: Limited cross table exam. No fracture seen. at 0443 Reported and signed by: Rhys Medina MD Electronically Signed: Rhys Medina, at 4:41 EST Tel , Service support , Medical Necessity - Tobacco Use Smoking Status: Current every day smoker Tobacco Use: Cigarettes Assessment/Plan All Active Problems (Last Updated 12/20/17 @ 08:07 by Vero Celeste MD) Hypomagnesemia (Acute) Hypocalcemia (Acute) Closed comminuted fracture of right hip (Acute) This is a 72 years old male patient presented to the emergency room because of mechanical fall, found to have acute traumatic right hip comminuted intertrochanteric fracture. #1 acute traumatic right hip comminuted intertrochanteric fracture: Due to mechanical fall. X-ray of the pelvis and left hip reviewed. At this time, patient has no significant pain. He is on IV morphine as needed for pain. Vital signs are stable, pulse ox is maintained on 4 L of oxygen. Orthopedic surgery consulted, awaiting their recommendations. #2 preoperative evaluation: Patient with complicated past medical history including hypertension, COPD, chronic respiratory failure and lung nodules which are suspicious for lung cancer. Chest x-ray reviewed, revealed left upper and left lower nodules, doubt infiltrate and also revealed changes consistent with emphysema. EKG revealed left bundle branch block which is chronic, no acute ischemic changes. Based on his age, serum creatinine, functional status and type of surgery, his estimated risk for perioperative myocardial infarction or cardiac arrest is 1.31%. Patient is at moderate to high risk for this type of surgery. Plan: 2D echocardiogram, will proceed with surgery after 2D echocardiogram results. #3 hypocalcemia/severe hypomagnesemia/vitamin D deficiency: His serum calcium is 6.3 mg/dL but serum albumin is 1.5 g/dL. Corrected calcium for albumin is 8.3 mg with sitter which is slightly low. Patient received IV calcium gluconate. His magnesium is 0.6. Serum phosphorus is normal. Vitamin D is 19.2 which is low as well. Plan: Repeat serum calcium tomorrow morning, IV magnesium sulfate 4 g x1, start vitamin D supplement, repeat serum magnesium tomorrow morning. #4 COPD/chronic respiratory failure: Patient has been on oxygen at home at 4 L. At this time, pulse ox is maintained at 98% on 4 L. Plan to continue oxygen, bronchodilators with DuoNeb and Pulmicort, incentive spirometer. #5 chronic anemia: It is normocytic anemia which is likely combination of anemia of chronic disease as well as history of GI bleed. Baseline hemoglobin has been fluctuating anywhere from 8-11 g with sitter. Admission hemoglobin is 8.5 g/dL. At this time, no evidence of active bleeding and no indication for blood transfusion. Plan to transfuse if hemoglobin less than 8 g/dL. #6 hypertension: Blood pressure stable, continue Norvasc, lisinopril and metoprolol. 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 #8 lung nodules: With suspicion of lung cancer. Patient supposed to follow-up with his paper cone grader at [facility]. According to the patient's , patient was referred to [facility] for lung biopsy which is probably by endobronchial ultrasound but not done so far. #9 DVT prophylaxis: SCDs, subcu heparin. This note was generated with [employer] software. It may contain incorrect words, spelling, and punctuation that were not noted in checking the note before signing.
--- NOTE | 2017-12-20 10:05 | PN_ITS ---
Patient Problems: Active and Suspected Problems (Last Updated 12/20/17 @ 08:07 by Vero Celeste MD) Closed comminuted fracture of right hip (Acute) Subjective: Chief complaint: Follow-up after admission for acute traumatic right hip comminuted intertrochanteric fracture. Patient seen and examined. At this time, his right hip pain is under control. He complained of minimal pain upon movement but nothing at rest. Denies chest pain or shortness of breath. He does have history of chronic respiratory failure and he has been on oxygen at 4 L at home. 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 Martínez. According to the patient's , patient was seen by Dr. Cedillo who recommended lung biopsy at [facility] which is probably endobronchial ultrasound procedure which was not done so far. Patient is afebrile, heart rate has been around 100, blood pressure stable, pulse ox is 98% on 4 L. - Physical Exam General: Alert, Oriented x3, Cooperative, - - Minimal shortness of breath. HEENT: Atraumatic, PERRLA, EOMI, Normocephalic Oral: Moist Mucosa, No Gingival or Mucosal Lesions/ Ulcerations Neck: Supple, No JVD, Negative Carotid Bruits, Trachea Midline, Thyroid Normal Size and Texture Lungs: No wheeze, Diminished, Rales, Rhonchi Cardiovascular: Regular rate, Regular Rhythm, Normal S1, Normal S2, PMI Normal Abdomen: Bowel Sounds Present, Soft, Non Tender, Non-Distended, No Hepato- splenomegaly Extremities: No clubbing, No cyanosis, Edema - ++ Edema. Skin: No rashes, No breakdown Lymphatic: No Cervical, Supraclavicular, or Inguinal Adenopathy Neurological: Cranial nerves II-XII grossly intact, Motor Exam 5/5 strength throughout Psych/Mental Status: Normal Affect, Appropriate, Alert and oriented to time, place, person, mood and affect Vital Signs Temp Pulse Resp BP Pulse Ox 98.7 F 101 H 18 111/58 L 98 12/20/17 08:35 12/20/17 08:35 12/20/17 09:09 12/20/17 08:35 12/20/17 09:09 Oxygen Flow Rate (L/min) 4 Oxygen Delivery Method Nasal Cannula Weight: 204 lb 5.896 oz Body Mass Index (BMI) 24.9 Laboratory Tests Past 24 Hrs 12/20/17 12/20/17 12/20/17 03:16 03:16 03:16 WBC 11.7 H RBC 2.72 L Hgb 8.5 L Hct 26.2 L MCV 96.3 H MCH 31.3 MCHC 32.4 RDW 14.8 H RDW Differential 49.4 H Plt Count 443 MPV 8.2 Neut % (Auto) Not Reportable Absolute Neuts (auto) 8.4 H Absolute Lymphs (auto) 1.52 Total Counted 100 Neutrophils % (Manual) 70 Band Neutrophils % 2 Lymphocytes % (Manual) 13 L Monocytes % (Manual) 5 Eosinophils % (Manual) 9 H Metamyelocytes % 1 Diff Path Review May foll Platelet Estimate ADEQUATE RBC Morphology NORM C+C PT 12.5 INR 0.9 Sodium 134 L Potassium 3.7 Chloride 94 L Carbon Dioxide 31.0 Anion Gap 9 BUN 13 Creatinine 0.92 Estim Creat Clear Calc 90.42 Est GFR (MDRD) Af Amer 104 Est GFR (MDRD) Non-Af 86 BUN/Creatinine Ratio 14.1 Glucose 91 Calcium 6.3 L* Ionized Calcium Phosphorus Magnesium Albumin Vitamin D 25-Hydroxy Urine Color Urine Clarity Urine pH Ur Specific [place] Urine Protein Urine Glucose (UA) Urine Ketones Urine Occult Blood Urine Nitrite Urine Bilirubin Urine Urobilinogen Ur Leukocyte Esterase Urine RBC Urine WBC Ur Squamous Epith Cells Urine Bacteria Urine Mucus 12/20/17 12/20/17 12/20/17 03:16 03:16 03:50 WBC RBC Hgb Hct MCV MCH MCHC RDW RDW Differential Plt Count MPV Neut % (Auto) Absolute Neuts (auto) Absolute Lymphs (auto) Total Counted Neutrophils % (Manual) Band Neutrophils % Lymphocytes % (Manual) Monocytes % (Manual) Eosinophils % (Manual) Metamyelocytes % Diff Path Review Platelet Estimate RBC Morphology PT INR Sodium Potassium Chloride Carbon Dioxide Anion Gap BUN Creatinine Estim Creat Clear Calc Est GFR (MDRD) Af Amer Est GFR (MDRD) Non-Af BUN/Creatinine Ratio Glucose Calcium Ionized Calcium Phosphorus Magnesium Albumin 1.5 L Vitamin D 25-Hydroxy 19.2 L Urine Color Yellow Urine Clarity Clear Urine pH 6.0 Ur Specific [place] 1.010 Urine Protein 15 H Urine Glucose (UA) Normal Urine Ketones Negative Urine Occult Blood 10 H Urine Nitrite Negative Urine Bilirubin Negative Urine Urobilinogen 1 H Ur Leukocyte Esterase Negative Urine RBC 0-5 SEEN Urine WBC 0 SEEN Ur Squamous Epith Cells 0-5 SEEN Urine Bacteria RARE Urine Mucus 0 SEEN 12/20/17 12/20/17 06:58 08:38 WBC RBC Hgb Hct MCV MCH MCHC RDW RDW Differential Plt Count MPV Neut % (Auto) Absolute Neuts (auto) Absolute Lymphs (auto) Total Counted Neutrophils % (Manual) Band Neutrophils % Lymphocytes % (Manual) Monocytes % (Manual) Eosinophils % (Manual) Metamyelocytes % Diff Path Review Platelet Estimate RBC Morphology PT INR Sodium Potassium Chloride Carbon Dioxide Anion Gap BUN Creatinine Estim Creat Clear Calc Est GFR (MDRD) Af Amer Est GFR (MDRD) Non-Af BUN/Creatinine Ratio Glucose Calcium Ionized Calcium Pending Phosphorus 2.9 Magnesium 0.6 L* Albumin Vitamin D 25-Hydroxy Urine Color Urine Clarity Urine pH Ur Specific [place] Urine Protein Urine Glucose (UA) Urine Ketones Urine Occult Blood Urine Nitrite Urine Bilirubin Urine Urobilinogen Ur Leukocyte Esterase Urine RBC Urine WBC Ur Squamous Epith Cells Urine Bacteria Urine Mucus Clinical Impression(s) from Imaging Studies Chest X-Ray 12/20/17 03:37 IMPRESSION: 1. Persistent infiltrates or mass lesions within the left upper arm and left lower lobes. 2. Left hemithorax mild volume loss, which appears a new finding. 3. Extensive emphysema. Prominent pulmonary vascularity which may be related to overhead technique. at 0292 Reported and signed by: Rhys Medina MD Electronically Signed: Rhys Medina, at 4:36 EST Tel , Service support , Hip/Pelvis X-Ray 12/20/17 03:38 IMPRESSION: Right hip comminuted intertrochanteric fracture. Details above. at 7845 Reported and signed by: Rhys Medina MD Electronically Signed: Rhys Medina, at 4:47 EST Tel , Service support , Knee X-Ray 12/20/17 03:38 IMPRESSION: Limited cross table exam. No fracture seen. at 0443 Reported and signed by: Rhys Medina MD Electronically Signed: Rhys Medina, at 4:41 EST Tel , Service support , Medical Necessity - Tobacco Use Smoking Status: Current every day smoker Tobacco Use: Cigarettes Assessment/Plan All Active Problems (Last Updated 12/20/17 @ 08:07 by Vero Celeste MD) Hypomagnesemia (Acute) Hypocalcemia (Acute) Closed comminuted fracture of right hip (Acute) This is a 72 years old male patient presented to the emergency room because of mechanical fall, found to have acute traumatic right hip comminuted intertrochanteric fracture. #1 acute traumatic right hip comminuted intertrochanteric fracture: Due to mechanical fall. X-ray of the pelvis and left hip reviewed. At this time, patient has no significant pain. He is on IV morphine as needed for pain. Vital signs are stable, pulse ox is maintained on 4 L of oxygen. Orthopedic surgery consulted, awaiting their recommendations. #2 preoperative evaluation: Patient with complicated past medical history including hypertension, COPD, chronic respiratory failure and lung nodules which are suspicious for lung cancer. Chest x-ray reviewed, revealed left upper and l eft lower nodules, doubt infiltrate and also revealed changes consistent with emphysema. EKG revealed left bundle branch block which is chronic, no acute ischemic changes. Based on his age, serum creatinine, functional status and type of surgery, his estimated risk for perioperative myocardial infarction or cardiac arrest is 1.31%. Patient is at moderate to high risk for this type of surgery. Plan: 2D echocardiogram, will proceed with surgery after 2D echocardiogram results. #3 hypocalcemia/severe hypomagnesemia/vitamin D deficiency: His serum calcium is 6.3 mg/dL but serum albumin is 1.5 g/dL. Corrected calcium for albumin is 8.3 mg with sitter which is slightly low. Patient received IV calcium gluconate. His magnesium is 0.6. Serum phosphorus is normal. Vitamin D is 19.2 which is low as well. Plan: Repeat serum calcium tomorrow morning, IV magnesium sulfate 4 g x1, start vitamin D supplement, repeat serum magnesium tomorrow morning. #4 COPD/chronic respiratory failure: Patient has been on oxygen at home at 4 L. At this time, pulse ox is maintained at 98% on 4 L. Plan to continue oxygen, bronchodilators with DuoNeb and Pulmicort, incentive spirometer. #5 chronic anemia: It is normocytic anemia which is likely combination of anemia of chronic disease as well as history of GI bleed. Baseline hemoglobin has been fluctuating anywhere from 8-11 g with sitter. Admission hemoglobin is 8.5 g/dL. At this time, no evidence of active bleeding and no indication for blood transfusion. Plan to transfuse if hemoglobin less than 8 g/dL. #6 hypertension: Blood pressure stable, continue Norvasc, lisinopril and metoprolol. 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 #8 lung nodules: With suspicion of lung cancer. Patient supposed to follow-up with his properties supervisor at [facility]. According to the patient's , patient was referred to [facility] for lung biopsy which is probably by endobronchial ultrasound but not done so far. #9 DVT prophylaxis: SCDs, subcu heparin. This note was generated with [employer] software. It may contain incorrect words, spelling, and punctuation that were not noted in checking the note before signing.
[2017-12-20] MEDS: Senna/Docusate Sodium 1 Tablet 2 TABLET PO ×2 (11:07→21:59)
[2017-12-20] MEDS: Pantoprazole Sodium 20 MG Tablet PO (11:07)
[2017-12-20] MEDS: Metoprolol Tartrate 25 MG Tablet PO ×2 (11:17→21:58)
--- NOTE | 2017-12-20 12:10 | CASEMGMT ---
RN MICHELE Face to Face with patient for initial transition planning/care coordination assessment. RN CM introduced self and role at [facility]. Patient lying in bed, alert and oriented, at bedside. Patient willing to participate in assessment and is able to answer all questions appropriately. Care providers, pharmacy, and demographics verified. Patient wishes to discharge home with HHC or to SNF if necessary. Patient states he has no further needs or concerns at this time. CM to follow for discharge planning needs that may arise. PCP: Jerardo Specialists: Jasbir, architecture drafter, Nguyen, oncologist Preferred Pharmacy: [facility] Insurance: [employer] [facility] Prescription Benefit: [place] [facility] Living Will/HPOA: None LNOK: Living Arrangements: Patient lives with who assists with ADLs. Patient lives in 1st floor apt with 1 step to enter home. Transportation: DME/HHC: Patient has shower chair, grab bars, walker, wc, oxygen, and nebulizer at home. Disposition Plan: TBD by coarse of treatment. Will continue to monitor Mariah MANCINI, RN, CM
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
--- NOTE | 2017-12-20 15:12 | CASEMGMT ---
Tertiary hospitals in-network with insurance include: [facility], [facility], [facility], [facility], [facility], [facility].
--- NOTE | 2017-12-20 15:27 | NURSING ---
talked w/ Luna RN in AC, requesting message be left for anesthesia that echo results are on the chart. Dr. Celeste wants to makes sure anesthesia sees everything preparing for surgery.
[2017-12-20] MEDS: Calcium Carbonate 500 MG Tablet 1000 MG PO (16:54)
[2017-12-20] MEDS: 0.9% Normal Saline 1,000 ML 75 ML IV (17:45)
[2017-12-20] MEDS: 0.9% NaCl Peripheral Flush Adult/Peds IV (20:13)
[2017-12-20] MEDS: Lisinopril 20 MG Tablet PO (21:59)
--- NOTE | 2017-12-20 22:00 | NURSING ---
Pt was mouth breathing and short of breath. Pt's lungs had crackles. Had the pt use is IS and cough & deep breath. Pt O2 sat 83 on 5L. Put pt on non-rebreather and is now 98%.
--- NOTE | 2017-12-20 22:16 | NURSING ---
CPS in to see pt. Pt on 50% venti O2 sat 95%. will notify
--- NOTE | 2017-12-20 22:25 | NURSING ---
Noa -charge nurse notified of pt's condition
--- NOTE | 2017-12-20 22:32 | NURSING ---
Radiology notified of stat chest xray. CPS in room drawing ABG's. pox 95% on 50% venti mask. Pt resting comfortably.
--- NOTE | 2017-12-20 22:45 | RAD_ITS ---
STUDY: X-RAY CHEST REASON FOR EXAM: Male, 72 years old. Shortness of breath TECHNIQUE: Single AP portable view of the chest. COMPARISON: Prior chest radiograph of December 20, 2017 at 3:48 AM, prior portable chest of September 24, [address] exam of September 24, 2017 FINDINGS: Respiratory equipment artifact over the right upper lobe. Hyperexpansion with marked emphysematous changes of the upper and midlung zones. Increased bibasilar platelike atelectatic changes from earlier exam and persistent bibasilar infiltrates. A relatively small spiculated mass density of the medial left upper lobe is unchanged from prior exam. Normal size heart. Normal mediastinum and cedrick. Normal visualized pulmonary arteries. There is atherosclerotic calcification of the aortic arch with tortuosity. There is demineralization of the osseous structures. Normal visualized ribs, clavicles, and shoulders. Increased bowel gas below the diaphragm. RAD/Chest 1 View (Portable) IMPRESSION: Generalized hyperexpansion and severe emphysematous changes of the upper and midlung zones. Stable spiculated mass density of the medial left upper lobe. Increased bibasilar infiltrates and atelectatic changes from the prior exam. Electronically Signed: Olivia Acosta MD at 23:24 EST , Service support ,
[2017-12-20 22:46] LABS: Allen Test POS; Base Excess 5 mmol/L (-2 to +2); Bicarbonate 29.7 mmol/L (22-26); Blood Gas Specimen Type ART; FI02 50; PO2 69 mmHG (75-100); SITE R Radial; SO2 94 % (95-99); Total Carbon Dioxide 31 mmol/L; pCO2 45.6 mmHg (35-45); pH 7.42 (7.35-7.45)
[2017-12-21] VITALS (22 sets, daily range): BP systolic 110–140; BP diastolic 55–91; PULSE 97–119; RESP 20–30; TEMP 36.3–37.2; O2SAT 88–99
[2017-12-21] MEDS: 0.9% NaCl Peripheral Flush Adult/Peds IV ×2 (01:06→14:36)
[2017-12-21] MEDS: Furosemide 40 MG/4 ML Vial IV ×2 (01:06→09:07)
[2017-12-21] MEDS: Ipratropium/Albuterol Sulfate 3 ML AMPUL.NEB INHALATION ×4 (01:45→13:19)
[2017-12-21] MEDS: Acetaminophen 325 MG Tablet 650 MG PO ×2 (02:14→12:38)
[2017-12-21] MEDS: Heparin Injection (Vial) 5,000 UNIT/ML VIAL 5000 UNIT SC ×2 (05:28→13:37)
--- NOTE | 2017-12-21 05:39 | CT_ITS ---
HISTORY: PE TECHNIQUE: Helically acquired images were obtained of the chest following IV contrast as per pulmonary angiogram protocol with 3D reconstructions. A radiation dose optimization technique was used for this scan. IV Contrast dosage and agent: 100 cc Isovue-370 contrast COMPARISON: CTA exam 09/24/2017 FINDINGS: The main, segmental, and visualized subsegmental pulmonary arteries show normal opacification. No PE. Thoracic aorta is atherosclerotic and mildly ectatic. No aortic aneurysm or aortic dissection. No pericardial effusion. Cluster of right hilar lymph nodes, which represents interval worsening. Fluid-filled esophagus with chronic hiatal hernia. Left upper lobe medial spiculated mass which is mildly increased in size compatible with tumor. This lesion currently measures approximately 2.8 x 1.6 cm as compared to 2.5 x 1.4 cm previously. By previous exam, a left basilar nodular infiltrate or mass was present. This area currently is not well seen secondary to development of bilateral pleural effusions. The previous nodular infiltrate abuts the left pleural effusion. Right basilar passive atelectatic change related to pleural effusion. Bilateral interstitial edema. Background chronic lung disease with extensive centrilobular emphysema. Multiple compression deformities of the lower dorsal spine. T12 moderate compression fracture, new compared to previous. Minor bony retropulsion at this level. No cord compression. CT/CTA Chest W/WO Contrast IMPRESSION: 1. No CT findings of pulmonary embolic disease. 2. Congestive heart failure with interstitial edema and small bilateral pleural effusions. Right basilar passive atelectasis. 3. Underlying chronic lung disease with extensive emphysema. 4. Left upper lobe spiculated mass, mildly increased in size, compatible with malignancy. 5. Right hilar mild lymph enlargement, new compared to previous. 6. Numerous compression fractures of the lower dorsal spine. Details above. Individualized dose optimization techniques were used for this CT. at 0729 Reported and signed by: Rhys Medina MD Electronically Signed: Rhys Medina, at 7:27 EST Tel , Service support ,
[2017-12-21 05:40] LABS: Absolute Neutrophil Count 8.9 X10^3/uL (2.0-7.7); Basophil# 0.02 X10^3/uL; Basophil% 0.2 % (0-1); Eosinophil# 0.07 X10^3/uL; Eosinophils% 0.6 % (0-5); Hematocrit 23.9 % (40-54); Hemoglobin 7.8 g/dl (13.0-16.5); Lymphocyte % 11.3 % (19-41); Mean Corp Hgb Conc 32.6 g/gl (32-36); Mean Corpuscular Hgb 31.2 pg (27.0-32.0); Mean Corpuscular Volume 95.6 fL (80-94); Mean Platelet Vol. 8.1 fl (6.2-12.0); Monocyte# 1.04 X10^3/uL; Monocyte% 9.1 % (0-10); Neutrophil # 8.92 X10^3/uL (2.7-7.7); Neutrophil % 77.8 % (47-70); Platelet Count 359 K/mm3 (150-450); RBC Distribution Width CV 14.9 % (11.6-14.6); RBC Distribution Width SD 52.2 fl (35.1-43.9); White Blood Count 11.5 K/mm3 (4.4-11.0)
[2017-12-21 05:42] LABS: POSITIVE COUNT NO; POSITIVE DIFFERENTIAL NO; POSITIVE MORPHOLOGY NO
[2017-12-21 05:47] LABS: International Normalized Ratio 0.9; Prothrombin Time (Protime)PT. 12.5 SECONDS (11.7-14.9)
[2017-12-21 05:58] LABS: ALB/GLOB Ratio 0.4 RATIO (0.9-2.4); AST(SGOT) 29 U/L (15-37); Alanine Aminotransfer ALT/SGPT 21 U/L (16-61); Albumin, Serum 1.4 g/dL (3.2-5.0); Alkaline Phosphatase 140 U/L (45-117); Anion Gap 10 (5-15); BUN 18 mg/dL (7-18); BUN/Creat Ratio 17.6 RATIO (10-20); Calcium,Total 7.1 mg/dL (8.5-10.1); Chloride 93 mmol/L (98-107); Creatinine, Serum 1.02 mg/dL (0.70-1.30); EST Glomerular Filtration Rate 76 mL/min (>60); Est Glom Filt Rate - Afr Amer 93 mL/min (>60); Estimated Creatinine Clearance 79.39 ml/min; Glucose 110 mg/dL (74-106); Magnesium 1.3 mg/dL (1.6-2.6); Protein, Total 5.4 g/dL (6.4-8.2); Sodium Level 132 mmol/L (136-145)
--- NOTE | 2017-12-21 07:57 | NURSING ---
aware per RN Dora that they talked with and OR is cancelled, suggesting pt be transferred. AwaRe they talked w/ Dr. Celeste and he is requesting charge nurse talk w/ anesthesia. This nurse called Dr. Lal whom states if Dr. Eaton is not willing to operate on patient OR is cancelled and requesting Dr. Celeste call him directly. Information relayed to Dr. Celeste.
--- NOTE | 2017-12-21 08:09 | NURSING ---
Updated primary RN and charge account clerk about communications with Dr. Eaton & Dr. Celeste. (see physician notification)
[2017-12-21 08:52] LABS: Pathologist Review Reviewed
[2017-12-21] MEDS: Pantoprazole Sodium 20 MG Tablet PO (09:05)
[2017-12-21] MEDS: Metoprolol Tartrate 25 MG Tablet PO (09:05)
[2017-12-21] MEDS: Lisinopril 20 MG Tablet PO (09:05)
[2017-12-21] MEDS: amLODIPine 5 MG Tablet PO (09:05)
[2017-12-21] MEDS: Senna/Docusate Sodium 1 Tablet 2 TABLET PO (09:06)
[2017-12-21] MEDS: Calcium Carb/Vitamin D 1 TABLET Tablet PO (09:06)
[2017-12-21] MEDS: Ferrous Gluconate 324 MG Tablet PO (09:06)
[2017-12-21] MEDS: Calcium Carbonate 500 MG Tablet 1000 MG PO (09:06)
[2017-12-21 09:52] LABS: BNP,B-Type NATRIURETIC PEPTIDE 153.3 pg/mL (0-100)
--- NOTE | 2017-12-21 10:23 | NURSING ---
into patient's room as c/o not tolerating the vent. mask or nrb. states the mask if making him feel worked up and more anxious. pt will not keep mask on. pt also requesting to drink his coffee. RR noted to be 30bpm attempted 6lnc but spo2 dropped to 83% pt back on 50% ventimask. Dr. Celeste sent text. Sarai MAYFIELD at bedside.
--- NOTE | 2017-12-21 10:30 | NURSING ---
respiratory Therapist in room w/ primary RN. maintaining 50% vent. mask.
--- NOTE | 2017-12-21 10:37 | NURSING ---
responded to Dr. Celeste's text regarding Bipap, will try pt just doesn't tolerate it well. CPS and Primary RN notified of Dr. Celeste's response.
--- NOTE | 2017-12-21 10:43 | CPS ---
Melissa talked to pt about trying the BIPAP machine, pt emphatically said NO, I will not wear that, his walked into the room as this discussion was occurring and his said that the Bipap was tried in the past and he absolutely could not tolerate it. Melissa let Shayla MAYFIELDcharge attendant and Sarai MAYFIELD about pt's refusal of the BIPAP.
[2017-12-21 11:51] LABS: Allen Test POS; Base Excess 7 mmol/L (-2 to +2); Bicarbonate 31.4 mmol/L (22-26); Blood Gas Specimen Type ART; FI02 50; PO2 56 mmHG (75-100); SITE L Radial; SO2 89 % (95-99); Time Given 1140; Total Carbon Dioxide 33 mmol/L; pCO2 47.6 mmHg (35-45); pH 7.43 (7.35-7.45)
--- NOTE | 2017-12-21 13:27 | PCM.PROGNOTE ---
Patient Problems: Active and Suspected Problems (Last Updated 12/20/17 @ 08:07 by Vero Celeste MD) Closed comminuted fracture of right hip (Acute) Subjective: Chief complaint: Follow-up after admission for acute traumatic right hip comminuted intertrochanteric fracture. Patient seen and examined. Overnight, patient become more hypoxic. He needed oxygen by Ventimask. The patient himself reported that his breathing is almost the same with minimal worsening. He denies chest pain or cough. ABG performed last night and revealed pH of 7.42, PCO2 of 45 and PO2 of 69. Patient was started on Ventimask. He refused BiPAP. He is tachycardic, blood pressure stable, pulse ox is maintained on Ventimask 50%. Chest x-ray revealed probable pulmonary vascular congestion in addition to left upper lobe mass. He received 1 dose of IV Lasix last night. CTA chest performed and revealed findings consistent with probable CHF, no PE or dissection. - Physical Exam General: Alert, Oriented x3, Cooperative, - - Moderately short of breath. HEENT: Atraumatic, PERRLA, EOMI, Normocephalic Oral: Moist Mucosa, No Gingival or Mucosal Lesions/ Ulcerations Neck: Supple, No JVD, Negative Carotid Bruits, Trachea Midline, Thyroid Normal Size and Texture Lungs: No wheeze, Diminished, Rhonchi, Short of Breath, - - Decreased breath sounds bilateral, bilateral rhonchi. Cardiovascular: Regular rate, Regular Rhythm, Normal S1, Normal S2, PMI Normal Abdomen: Bowel Sounds Present, Soft, Non Tender, Non-Distended, No Hepato-splenomegaly Extremities: No clubbing, No cyanosis, Edema - ++ Edema. Skin: No rashes, No breakdown Lymphatic: No Cervical, Supraclavicular, or Inguinal Adenopathy Neurological: Cranial nerves II-XII grossly intact, Neuro grossly intact Psych/Mental Status: Normal Affect, Appropriate, Alert and oriented to time, place, person, mood and affect Vital Signs Temp Pulse Resp BP Pulse Ox 98.6 F 111 H 30 H 140/68 H 90 12/21/17 12:30 12/21/17 13:21 12/21/17 12:30 12/21/17 12:30 12/21/17 12:30 Oxygen Flow Rate (L/min) 12 Oxygen Delivery Method Venturi Mask Weight: 204 lb 5.896 oz Body Mass Index (BMI) 24.9 Intake and Output for Last 24 Hours 12/19/17 12/20/17 12/21/17 23:59 23:59 23:59 Intake Total 2021 388 / 388 Output Total 950 / 950 700 / 700 Balance 1072 / 1072 -312 / -312 Laboratory Tests Past 24 Hrs 12/20/17 12/20/17 12/21/17 03:16 22:39 05:24 WBC 11.5 H RBC 2.50 L Hgb 7.8 L Hct 23.9 L MCV 95.6 H MCH 31.2 MCHC 32.6 RDW 14.9 H RDW Differential 52.2 H Plt Count 359 MPV 8.1 Immature Gran % (Auto) 1.000 H Neut % (Auto) 77.8 H Lymph % (Auto) 11.3 L [place] % (Auto) 9.1 Eos % (Auto) 0.6 Baso % (Auto) 0.2 Absolute Neuts (auto) 8.9 H Absolute Lymphs (auto) 1.30 Total Counted Not Reportable Diff Path Review Reviewed PT INR APTT Specimen Type ART Sample Site R Radial pH 7.42 Bicarbonate Actual 29.7 H POC Total CO2 31 Base Excess 5 H O2 Saturation 94 L O2 % 50 ABG pCO2 45.6 H ABG pO2 69 L Eugene Test POS O2 Delivery Device Vent Mask Blood Gas Notified Whom HOSP Blood Gas Notified Time Sodium Potassium Chloride Carbon Dioxide Anion Gap BUN Creatinine Estim Creat Clear Calc Est GFR (MDRD) Af Amer Est GFR (MDRD) Non-Af BUN/Creatinine Ratio Glucose Calcium Magnesium Total Bilirubin AST ALT Alkaline Phosphatase B-Natriuretic Peptide Total Protein Albumin Globulin Albumin/Globulin Ratio Blood Type Antibody Screen 12/21/17 12/21/17 12/21/17 05:24 05:24 05:24 WBC RBC Hgb Hct MCV MCH MCHC RDW RDW Differential Plt Count MPV Immature Gran % (Auto) Neut % (Auto) Lymph % (Auto) [place] % (Auto) Eos % (Auto) Baso % (Auto) Absolute Neuts (auto) Absolute Lymphs (auto) Total Counted Diff Path Review PT 12.5 INR 0.9 APTT 35.0 Specimen Type Sample Site pH Bicarbonate Actual POC Total CO2 Base Excess O2 Saturation O2 % ABG pCO2 ABG pO2 Eugene Test O2 Delivery Device Blood Gas Notified Whom Blood Gas Notified Time Sodium 132 L Potassium 4.0 Chloride 93 L Carbon Dioxide 29.0 Anion Gap 10 BUN 18 Creatinine 1.02 Estim Creat Clear Calc 79.39 Est GFR (MDRD) Af Amer 93 Est GFR (MDRD) Non-Af 76 BUN/Creatinine Ratio 17.6 Glucose 110 H Calcium 7.1 L Magnesium 1.3 L Total Bilirubin 0.50 AST 29 ALT 21 Alkaline Phosphatase 140 H B-Natriuretic Peptide Total Protein 5.4 L Albumin 1.4 L Globulin 4.0 Albumin/Globulin Ratio 0.4 L Blood Type A POSITIVE Antibody Screen NEGATIVE 12/21/17 12/21/17 05:24 11:45 WBC RBC Hgb Hct MCV MCH MCHC RDW RDW Differential Plt Count MPV Immature Gran % (Auto) Neut % (Auto) Lymph % (Auto) [place] % (Auto) Eos % (Auto) Baso % (Auto) Absolute Neuts (auto) Absolute Lymphs (auto) Total Counted Diff Path Review PT INR APTT Specimen Type ART Sample Site L Radial pH 7.43 Bicarbonate Actual 31.4 H POC Total CO2 33 Base Excess 7 H O2 Saturation 89 L O2 % 50 ABG pCO2 47.6 H ABG pO2 56 L Eugene Test POS O2 Delivery Device Vent Mask Blood Gas Notified Whom [facility] Blood Gas Notified Time 1140 Sodium Potassium Chloride Carbon Dioxide Anion Gap BUN Creatinine Estim Creat Clear Calc Est GFR (MDRD) Af Amer Est GFR (MDRD) Non-Af BUN/Creatinine Ratio Glucose Calcium Magnesium Total Bilirubin AST ALT Alkaline Phosphatase B-Natriuretic Peptide 153.3 H Total Protein Albumin Globulin Albumin/Globulin Ratio Blood Type Antibody Screen Clinical Impression(s) from Imaging Studies Chest X-Ray 12/20/17 22:45 IMPRESSION: Generalized hyperexpansion and severe emphysematous changes of the upper and midlung zones. Stable spiculated mass density of the medial left upper lobe. Increased bibasilar infiltrates and atelectatic changes from the prior exam. Electronically Signed: Olivia Acosta MD at 23:24 EST , Service support , Chest CTA 12/21/17 05:39 IMPRESSION: 1. No CT findings of pulmonary embolic disease. 2. Congestive heart failure with interstitial edema and small bilateral pleural effusions. Right basilar passive atelectasis. 3. Underlying chronic lung disease with extensive emphysema. 4. Left upper lobe spiculated mass, mildly increased in size, compatible with malignancy. 5. Right hilar mild lymph enlargement, new compared to previous. 6. Numerous compression fractures of the lower dorsal spine. Details above. Individualized dose optimization techniques were used for this CT. at 0729 Reported and signed by: Rhys Medina MD Electronically Signed: Rhys Medina, at 7:27 EST Tel , Service support , Medical Necessity - Tobacco Use Smoking Status: Current every day smoker Tobacco Use: Cigarettes Assessment/Plan All Active Problems (Last Updated 12/20/17 @ 08:07 by Vero Celeste MD) Hypomagnesemia (Acute) Hypocalcemia (Acute) Closed comminuted fracture of right hip (Acute) This is a 72 years old male patient presented to the emergency room because of mechanical fall, found to have acute traumatic right hip comminuted intertrochanteric fracture. #1 acute traumatic right hip comminuted intertrochanteric fracture: Due to mechanical fall. He is on IV morphine as needed for pain. Pain is well controlled. He is afebrile, hypoxic and tachycardic, blood pressure stable. Orthopedic surgery consulted, recommended to transfer the patient to a tertiary care center because patient is at high risk for complication postoperatively. Overnight, respiratory status worsened. Patient required Ventimask. ABG reviewed as above. Patient refused BiPAP. He received 1 dose of IV last night. Plan to transfer to [facility], repeat ABG, will give another dose of IV Lasix. #2 preoperative evaluation: Patient with complicated past medical history including hypertension, COPD, chronic respiratory failure and lung nodules which are suspicious for lung cancer. Chest x-ray reviewed, revealed left upper and left lower nodules, doubt infiltrate and also revealed changes consistent with emphysema. EKG revealed left bundle branch block which is chronic, no acute ischemic changes. Based on his age, serum creatinine, functional status and type of surgery, his estimated risk for perioperative myocardial infarction or cardiac arrest is 1.31%. Patient is at moderate to high risk for this type of surgery. 2D echocardiogram revealed ejection fraction of 55%, severely dilated right ventricle, severely enlarged right atrium, RVSP of 34. Because patient is at high risk for postoperative complications, orthopedic surgery recommended to transfer the patient to a tertiary care center for further management. Plan as above. #3 hypocalcemia/severe hypomagnesemia/vitamin D deficiency: On calcium, magnesium and vitamin D supplement. Today's corrected calcium based on albumin is 9.2 mg/dL which is normal. Serum magnesium improved, today's magnesium is 1.3. Phosphorus was normal. Started on vitamin D supplement. Plan to continue calcium and vitamin D supplement, another dose of IV magnesium ordered this morning. #4 COPD/acute on chronic hypoxic chronic respiratory failure: Patient has been on oxygen at home at 4 L. Overnight, respiratory status worsened. ABG revealed pH of 7.42, PO2 of 45 and PO2 of 69, hypoxic. Patient refused BiPAP. He is on Ventimask. CTA chest without PE or dissection. Plan as above, continue bronchodilators, another dose of IV Lasix. #5 chronic anemia: It is normocytic anemia which is likely combination of anemia of chronic disease as well as history of GI bleed. Baseline hemoglobin has been fluctuating anywhere from 8-11 g with sitter. Admission hemoglobin is 8.5 g/dL, today's hemoglobin is 7.8 g/dL. We will transfuse 1 unit of packed RBCs. #6 hypertension: Blood pressure stable, continue Norvasc, lisinopril and metoprolol. 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 #8 lung nodules: With suspicion of lung cancer. Patient supposed to follow-up with his receptionist clerk at [facility]. According to the patient's , patient was referred to [facility] for lung biopsy which is probably by endobronchial ultrasound but not done so far. #9 DVT prophylaxis: SCDs, subcu heparin. This note was generated with [employer] software. It may contain incorrect words, spelling, and punctuation that were not noted in checking the note before signing.
--- NOTE | 2017-12-21 13:37 | PN_ITS ---
Patient Problems: Active and Suspected Problems (Last Updated 12/20/17 @ 08:07 by Vero Celeste MD) Closed comminuted fracture of right hip (Acute) Subjective: Chief complaint: Follow-up after admission for acute traumatic right hip comminuted intertrochanteric fracture. Patient seen and examined. Overnight, patient become more hypoxic. He needed oxygen by Ventimask. The patient himself reported that his breathing is almost the same with minimal worsening. He denies chest pain or cough. ABG performed last night and revealed pH of 7.42, PCO2 of 45 and PO2 of 69. Patient was started on Ventimask. He refused BiPAP. He is tachycardic, blood pressure stable, pulse ox is maintained on Ventimask 50%. Chest x-ray revealed probable pulmonary vascular congestion in addition to left upper lobe mass. He received 1 dose of IV Lasix last night. CTA chest performed and revealed findings consistent with probable CHF, no PE or dissection. - Physical Exam General: Alert, Oriented x3, Cooperative, - - Moderately short of breath. HEENT: Atraumatic, PERRLA, EOMI, Normocephalic Oral: Moist Mucosa, No Gingival or Mucosal Lesions/ Ulcerations Neck: Supple, No JVD, Negative Carotid Bruits, Trachea Midline, Thyroid Normal Size and Texture Lungs: No wheeze, Diminished, Rhonchi, Short of Breath, - - Decreased breath sounds bilateral, bilateral rhonchi. Cardiovascular: Regular rate, Regular Rhythm, Normal S1, Normal S2, PMI Normal Abdomen: Bowel Sounds Present, Soft, Non Tender, Non-Distended, No Hepato- splenomegaly Extremities: No clubbing, No cyanosis, Edema - ++ Edema. Skin: No rashes, No breakdown Lymphatic: No Cervical, Supraclavicular, or Inguinal Adenopathy Neurological: Cranial nerves II-XII grossly intact, Neuro grossly intact Psych/Mental Status: Normal Affect, Appropriate, Alert and oriented to time, place, person, mood and affect Vital Signs Temp Pulse Resp BP Pulse Ox 98.6 F 111 H 30 H 140/68 H 90 12/21/17 12:30 12/21/17 13:21 12/21/17 12:30 12/21/17 12:30 12/21/17 12:30 Oxygen Flow Rate (L/min) 12 Oxygen Delivery Method Venturi Mask Weight: 204 lb 5.896 oz Body Mass Index (BMI) 24.9 Intake and Output for Last 24 Hours 12/19/17 12/20/17 12/21/17 23:59 23:59 23:59 Intake Total 2021 388 / 388 Output Total 950 / 950 700 / 700 Balance 1072 / 1072 -312 / -312 Laboratory Tests Past 24 Hrs 12/20/17 12/20/17 12/21/17 03:16 22:39 05:24 WBC 11.5 H RBC 2.50 L Hgb 7.8 L Hct 23.9 L MCV 95.6 H MCH 31.2 MCHC 32.6 RDW 14.9 H RDW Differential 52.2 H Plt Count 359 MPV 8.1 Immature Gran % (Auto) 1.000 H Neut % (Auto) 77.8 H Lymph % (Auto) 11.3 L [place] % (Auto) 9.1 Eos % (Auto) 0.6 Baso % (Auto) 0.2 Absolute Neuts (auto) 8.9 H Absolute Lymphs (auto) 1.30 Total Counted Not Reportable Diff Path Review Reviewed PT INR APTT Specimen Type ART Sample Site R Radial pH 7.42 Bicarbonate Actual 29.7 H POC Total CO2 31 Base Excess 5 H O2 Saturation 94 L O2 % 50 ABG pCO2 45.6 H ABG pO2 69 L Eugene Test POS O2 Delivery Device Vent Mask Blood Gas Notified Whom HOSP Blood Gas Notified Time Sodium Potassium Chloride Carbon Dioxide Anion Gap BUN Creatinine Estim Creat Clear Calc Est GFR (MDRD) Af Amer Est GFR (MDRD) Non-Af BUN/Creatinine Ratio Glucose Calcium Magnesium Total Bilirubin AST ALT Alkaline Phosphatase B-Natriuretic Peptide Total Protein Albumin Globulin Albumin/Globulin Ratio Blood Type Antibody Screen 12/21/17 12/21/17 12/21/17 05:24 05:24 05:24 WBC RBC Hgb Hct MCV MCH MCHC RDW RDW Differential Plt Count MPV Immature Gran % (Auto) Neut % (Auto) Lymph % (Auto) [place] % (Auto) Eos % (Auto) Baso % (Auto) Absolute Neuts (auto) Absolute Lymphs (auto) Total Counted Diff Path Review PT 12.5 INR 0.9 APTT 35.0 Specimen Type Sample Site pH Bicarbonate Actual POC Total CO2 Base Excess O2 Saturation O2 % ABG pCO2 ABG pO2 Eugene Test O2 Delivery Device Blood Gas Notified Whom Blood Gas Notified Time Sodium 132 L Potassium 4.0 Chloride 93 L Carbon Dioxide 29.0 Anion Gap 10 BUN 18 Creatinine 1.02 Estim Creat Clear Calc 79.39 Est GFR (MDRD) Af Amer 93 Est GFR (MDRD) Non-Af 76 BUN/Creatinine Ratio 17.6 Glucose 110 H Calcium 7.1 L Magnesium 1.3 L Total Bilirubin 0.50 AST 29 ALT 21 Alkaline Phosphatase 140 H B-Natriuretic Peptide Total Protein 5.4 L Albumin 1.4 L Globulin 4.0 Albumin/Globulin Ratio 0.4 L Blood Type A POSITIVE Antibody Screen NEGATIVE 12/21/17 12/21/17 05:24 11:45 WBC RBC Hgb Hct MCV MCH MCHC RDW RDW Differential Plt Count MPV Immature Gran % (Auto) Neut % (Auto) Lymph % (Auto) [place] % (Auto) Eos % (Auto) Baso % (Auto) Absolute Neuts (auto) Absolute Lymphs (auto) Total Counted Diff Path Review PT INR APTT Specimen Type ART Sample Site L Radial pH 7.43 Bicarbonate Actual 31.4 H POC Total CO2 33 Base Excess 7 H O2 Saturation 89 L O2 % 50 ABG pCO2 47.6 H ABG pO2 56 L Eugene Test POS O2 Delivery Device Vent Mask Blood Gas Notified Whom [facility] Blood Gas Notified Time 1140 Sodium Potassium Chloride Carbon Dioxide Anion Gap BUN Creatinine Estim Creat Clear Calc Est GFR (MDRD) Af Amer Est GFR (MDRD) Non-Af BUN/Creatinine Ratio Glucose Calcium Magnesium Total Bilirubin AST ALT Alkaline Phosphatase B-Natriuretic Peptide 153.3 H Total Protein Albumin Globulin Albumin/Globulin Ratio Blood Type Antibody Screen Clinical Impression(s) from Imaging Studies Chest X-Ray 12/20/17 22:45 IMPRESSION: Generalized hyperexpansion and severe emphysematous changes of the upper and midlung zones. Stable spiculated mass density of the medial left upper lobe. Increased bibasilar infiltrates and atelectatic changes from the prior exam. Electronically Signed: Olivia Acosta MD at 23:24 EST , Service support , Chest CTA 12/21/17 05:39 IMPRESSION: 1. No CT findings of pulmonary embolic disease. 2. Congestive heart failure with interstitial edema and small bilateral pleural effusions. Right basilar passive atelectasis. 3. Underlying chronic lung disease with extensive emphysema. 4. Left upper lobe spiculated mass, mildly increased in size, compatible with malignancy. 5. Right hilar mild lymph enlargement, new compared to previous. 6. Numerous compression fractures of the lower dorsal spine. Details above. Individualized dose optimization techniques were used for this CT. at 0729 Reported and signed by: Rhys Medina MD Electronically Signed: Rhys Medina, at 7:27 EST Tel , Service support , Medical Necessity - Tobacco Use Smoking Status: Current every day smoker Tobacco Use: Cigarettes Assessment/Plan All Active Problems (Last Updated 12/20/17 @ 08:07 by Vero Celeste MD) Hypomagnesemia (Acute) Hypocalcemia (Acute) Closed comminuted fracture of right hip (Acute) This is a 72 years old male patient presented to the emergency room because of mechanical fall, found to have acute traumatic right hip comminuted intertrochanteric fracture. #1 acute traumatic right hip comminuted intertrochanteric fracture: Due to mechanical fall. He is on IV morphine as needed for pain. Pain is well controlled. He is afebrile, hypoxic and tachycardic, blood pressure stable. Orthopedic surgery consulted, recommended to transfer the patient to a tertiary care center because patient is at high risk for complication postoperatively. Overnight, respiratory status worsened. Patient required Ventimask. ABG reviewed as above. Patient refused BiPAP. He received 1 dose of IV last night. Plan to transfer to [facility], repeat ABG, will give another dose of IV Lasix. #2 preoperative evaluation: Patient with complicated past medical history including hypertension, COPD, chronic respiratory failure and lung nodules which are suspicious for lung cancer. Chest x-ray reviewed, revealed left upper and left lower nodules, doubt infiltrate and also revealed changes consistent with emphysema. EKG revealed left bundle branch block which is chronic, no acute ischemic changes. Based on his age, serum creatinine, functional status and type of surgery, his estimated risk for perioperative myocardial infarction or cardiac arrest is 1.31%. Patient is at moderate to high risk for this type of surgery. 2D echocardiogram revealed ejection fraction of 55%, severely dilated right ventricle, severely enlarged right atrium, RVSP of 34. Because patient is at high risk for postoperative complications, orthopedic surgery recommended to transfer the patient to a tertiary care center for further management. Plan as above. #3 hypocalcemia/severe hypomagnesemia/vitamin D deficiency: On calcium, magnes ium and vitamin D supplement. Today's corrected calcium based on albumin is 9.2 mg/dL which is normal. Serum magnesium improved, today's magnesium is 1.3. Phosphorus was normal. Started on vitamin D supplement. Plan to continue calcium and vitamin D supplement, another dose of IV magnesium ordered this morning. #4 COPD/acute on chronic hypoxic chronic respiratory failure: Patient has been on oxygen at home at 4 L. Overnight, respiratory status worsened. ABG revealed pH of 7.42, PO2 of 45 and PO2 of 69, hypoxic. Patient refused BiPAP. He is on Ventimask. CTA chest without PE or dissection. Plan as above, continue bronchodilators, another dose of IV Lasix. #5 chronic anemia: It is normocytic anemia which is likely combination of anemia of chronic disease as well as history of GI bleed. Baseline hemoglobin has been fluctuating anywhere from 8-11 g with sitter. Admission hemoglobin is 8.5 g/dL, today's hemoglobin is 7.8 g/dL. We will transfuse 1 unit of packed RBCs. #6 hypertension: Blood pressure stable, continue Norvasc, lisinopril and metoprolol. 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 #8 lung nodules: With suspicion of lung cancer. Patient supposed to follow-up with his banquet server on call at [facility]. According to the patient's , patient was referred to [facility] for lung biopsy which is probably by endobronchial ultrasound but not done so far. #9 DVT prophylaxis: SCDs, subcu heparin. This note was generated with [employer] software. It may contain incorrect words, spelling, and punctuation that were not noted in checking the note before signing.
--- NOTE | 2017-12-21 13:52 | CASEMGMT ---
Social Work Note SW met with pt and pt's present in room. SW asked pt about completion of advanced directives. Pt's states they have the documents but have not completed them yet. Mariah Nicolas SENIOR SOFTWARE DEVELOPER, BROADCAST OPERATIONS MANAGER
[2017-12-21] MEDS: Morphine 2 MG/ML Syringe IV (14:35)
[2017-12-21] MEDS: Furosemide 20 MG/2 ML VIAL IV (14:45)
--- NOTE | 2017-12-21 15:38 | NURSING ---
1520 CALLED REPORT TO STELLA AT [facility] NOTIFIED OF PICKUP TIME WITHIN 15 MINUTES. BLOOD TO BE TRANSFUSED DURING TRANSFER. PT GOING TO ROOM [id number]. CALLED AFTER AND UPDATED HER WELL. GAVE NUMBER TO NURSING UNIT TO CALL FOR UPDATES.
--- NOTE | 2017-12-21 17:38 | DS.PCM_ITS ---
Discharge Date and Diagnosis Date of Admission: 12/20/17 Date of Discharge: 12/21/17 - Primary Discharge Diagnosis #1 acute traumatic right hip comminuted intertrochanteric fracture. #2 hypocalcemia. #3 severe hypomagnesemia. #4 vitamin D deficiency. #5 acute on chronic hypoxic respiratory failure. #6 chronic anemia. - Secondary Discharge Diagnosis Chronic Problems (Last Updated 12/20/17 @ 08:07 by Vero Celeste MD) Barretts esophagus (Chronic) History of peptic ulcer disease (Chronic) Pulmonary embolism (Chronic) Off anticoagulation secondary to GI bleed Chronic respiratory failure (Chronic) COPD (chronic obstructive pulmonary disease) (Chronic) Hypertension (Chronic) Hospital Course and Treatment Imaging Results: Clinical Impression(s) from Imaging Studies Chest X-Ray 12/20/17 03:37 IMPRESSION: 1. Persistent infiltrates or mass lesions within the left upper arm and left lower lobes. 2. Left hemithorax mild volume loss, which appears a new finding. 3. Extensive emphysema. Prominent pulmonary vascularity which may be related to overhead technique. at 0438 Reported and signed by: Rhys Medina MD Electronically Signed: Rhys Medina, at 4:36 EST Tel , Service support , Hip/Pelvis X-Ray 12/20/17 03:38 IMPRESSION: Right hip comminuted intertrochanteric fracture. Details above. at 8803 Reported and signed by: Rhys Medina MD Electronically Signed: Rhys Medina, at 4:47 EST Tel , Service support , Knee X-Ray 12/20/17 03:38 IMPRESSION: Limited cross table exam. [place] 4793 Reported and signed by: Rhys Medina MD Electronically Signed: Rhys Medina, at 4:41 EST Tel , Service support , Chest X-Ray 12/20/17 22:45 IMPRESSION: Generalized hyperexpansion and severe emphysematous changes of the upper and midlung zones. Stable spiculated mass density of the medial left upper lobe. Increased bibasilar infiltrates and atelectatic changes from the prior exam. Electronically Signed: Olivia Acosta MD at 23:24 EST , Service support , Chest CTA 12/21/17 05:39 IMPRESSION: 1. No CT findings of pulmonary embolic disease. 2. Congestive heart failure with interstitial edema and small bilateral pleural effusions. Right basilar passive atelectasis. 3. Underlying chronic lung disease with extensive emphysema. 4. Left upper lobe spiculated mass, mildly increased in size, compatible with malignancy. 5. Right hilar mild lymph enlargement, new compared to previous. 6. Numerous compression fractures of the lower dorsal spine. Details above. Individualized dose optimization techniques were used for this CT. at 0729 Reported and signed by: Rhys Medina MD Electronically Signed: Rhys Medina, at 7:27 EST Tel , Service support , Dr. Eaton, orthopedic surgery. Operations: None Procedures: 2-D Echocardiogram, EKG Summary of Care Provided: The patient is a 72 year old M presented to the ED because of mechanical fall, found to have acute traumatic right hip comminuted intertrochanteric fracture on x-ray of the pelvis and right hip and he was admitted for surgical repair. Patient was found to have hypercalcemia and severe hypomagnesemia. This patient with history of chronic respiratory failure secondary to COPD and he has been on oxygen at 4 L at home. He was treated with IV morphine as needed for pain. Orthopedic surgery consulted and requested preoperative evaluation. Preoperative evaluation performed and because of patient's history, he was deemed to be at moderate to high risk for surgery based on his age, past medical history, serum creatinine as well as functional status. On the day after admission, patient's respiratory status declined and he became more hypoxic. Initially, he went up to 6 L of oxygen and eventually on Ventimask. ABG was performed and revealed hypoxia with normal pH and PCO2. BiPAP recommended but patient refused to wear the BiPAP. After discussion with orthopedic surgery and anesthesia, it was appropriate to transfer the patient to a tertiary care center for further treatment and care because he is at high risk for surgery. He was treated with IV calcium chloride and IV magnesium sulfate for replacement of both magnesium and calcium. His corrected calcium for albumin was slightly below normal. His EKG revealed left bundle branch block which is chronic and without acute ischemic changes. Patient continued to require more oxygen for which ABG repeated and revealed pH of 7.43, PCO2 of 47 and PO2 of 56. Was hypoxic. CTA chest done because he had a history of PE and showed no evidence of PE or dissection, it did show left lung nodules and chronic emphysematous changes. He did have history of chronic anemia and his hemoglobin came down to 7.8 g/dL on the second day of admission. There was no evidence of active bleeding. 1 unit of packed RBCs was transfused. I spoke with the patient and his about the transfer and they agreed to have the patient transferred to [facility] for further treatment and management. I made a call to [facility] transfer line who first spoke with the virtual reality specialist in the ICU who recommended that patient does not suitable for ICU at this time and he can go to a floor with lower acuity of care. I called the transfer line again and I gave them the information about the patient's status, about the repeat ABG and need for blood transfusion. They accepted the patient in transfer for further treatment. Patient transferred to [facility] on Ventimask. - Physical Exam General: Alert, Oriented x3, Cooperative, - - Moderately short of breath. HEENT: Atraumatic, PERRLA, EOMI, Normocephalic Oral: Moist Mucosa, No Gingival or Mucosal Lesions/ Ulcerations Neck: Supple, No JVD, Negative Carotid Bruits, Thyroid Normal Size and Texture Lungs: Clear to auscultation, No wheeze, No rales, Rhonchi, Short of Breath Cardiovascular: Regular rate, Regular Rhythm, Normal S1, Normal S2, PMI Normal Abdomen: Bowel Sounds Present, Soft, Non Tender, Non-Distended Extremities: No clubbing, No cyanosis, Edema - ++ Edema. Skin: No rashes, No breakdown Lymphatic: No Cervical, Supraclavicular, or Inguinal Adenopathy Neurological: Cranial nerves II-XII grossly intact, Neuro grossly intact Psych/Mental Status: Normal Affect, Appropriate Vital Signs Temp Pulse Resp BP Pulse Ox 98.0 F 109 H 22 H 110/68 91 12/21/17 15:04 12/21/17 15:04 12/21/17 15:04 12/21/17 15:04 12/21/17 15:04 Oxygen Flow Rate (L/min) 12 Oxygen Delivery Method Venturi Mask Weight: 204 lb 5.896 oz Body Mass Index (BMI) 24.9 Intake and Output for Last 24 Hours 12/19/17 12/20/17 12/21/17 23:59 23:59 23:59 Intake Total 2021 / 2021 388 / 388 Output Total 950 / 950 700 / 700 Balance 1072 / 1072 -312 / -312 Laboratory Tests Past 24 Hrs 12/20/17 12/20/17 12/21/17 03:16 22:39 05:24 WBC 11.5 H RBC 2.50 L Hgb 7.8 L Hct 23.9 L MCV 95.6 H MCH 31.2 MCHC 32.6 RDW 14.9 H RDW Differential 52.2 H Plt Count 359 MPV 8.1 Immature Gran % (Auto) 1.000 H Neut % (Auto) 77.8 H Lymph % (Auto) 11.3 L Spink % (Auto) 9.1 Eos % (Auto) 0.6 Baso % (Auto) 0.2 Absolute Neuts (auto) 8.9 H Absolute Lymphs (auto) 1.30 Total Counted Not Reportable Diff Path Review Reviewed PT INR APTT Specimen Type ART Sample Site R Radial pH 7.42 Bicarbonate Actual 29.7 H POC Total CO2 31 Base Excess 5 H O2 Saturation 94 L O2 % 50 ABG pCO2 45.6 H ABG pO2 69 L Eugene Test POS O2 Delivery Device Vent Mask Blood Gas Notified Whom HOSP Blood Gas Notified Time Sodium Potassium Chloride Carbon Dioxide Anion Gap BUN Creatinine Estim Creat Clear Calc Est GFR (MDRD) Af Amer Est GFR (MDRD) Non-Af BUN/Creatinine Ratio Glucose Calcium Magnesium Total Bilirubin AST ALT Alkaline Phosphatase B-Natriuretic Peptide Total Protein Albumin Globulin Albumin/Globulin Ratio Blood Type Antibody Screen Crossmatch 12/21/17 12/21/17 12/21/17 05:24 05:24 05:24 WBC RBC Hgb Hct MCV MCH MCHC RDW RDW Differential Plt Count MPV Immature Gran % (Auto) Neut % (Auto) Lymph % (Auto) Spink % (Auto) Eos % (Auto) Baso % (Auto) Absolute Neuts (auto) Absolute Lymphs (auto) Total Counted Diff Path Review PT 12.5 INR 0.9 APTT 35.0 Specimen Type Sample Site pH Bicarbonate Actual POC Total CO2 Base Excess O2 Saturation O2 % ABG pCO2 ABG pO2 Eugene Test O2 Delivery Device Blood Gas Notified Whom Blood Gas Notified Time Sodium 132 L Potassium 4.0 Chloride 93 L Carbon Dioxide 29.0 Anion Gap 10 BUN 18 Creatinine 1.02 Estim Creat Clear Calc 79.39 Est GFR (MDRD) Af Amer 93 Est GFR (MDRD) Non-Af 76 BUN/Creatinine Ratio 17.6 Glucose 110 H Calcium 7.1 L Magnesium 1.3 L Total Bilirubin 0.50 AST 29 ALT 21 Alkaline Phosphatase 140 H B-Natriuretic Peptide Total Protein 5.4 L Albumin 1.4 L Globulin 4.0 Albumin/Globulin Ratio 0.4 L Blood Type A POSITIVE Antibody Screen NEGATIVE Crossmatch 12/21/17 12/21/17 12/21/17 05:24 05:24 11:45 WBC RBC Hgb Hct MCV MCH MCHC RDW RDW Differential Plt Count MPV Immature Gran % (Auto) Neut % (Auto) Lymph % (Auto) Spink % (Auto) Eos % (Auto) Baso % (Auto) Absolute Neuts (auto) Absolute Lymphs (auto) Total Counted Diff Path Review PT INR APTT Specimen Type ART Sample Site L Radial pH 7.43 Bicarbonate Actual 31.4 H POC Total CO2 33 Base Excess 7 H O2 Saturation 89 L O2 % 50 ABG pCO2 47.6 H ABG pO2 56 L Eugene Test POS O2 Delivery Device Vent Mask Blood Gas Notified Whom [facility] Blood Gas Notified Time 1140 Sodium Potassium Chloride Carbon Dioxide Anion Gap BUN Creatinine Estim Creat Clear Calc Est GFR (MDRD) Af Amer Est GFR (MDRD) Non-Af BUN/Creatinine Ratio Glucose Calcium Magnesium Total Bilirubin AST ALT Alkaline Phosphatase B-Natriuretic Peptide 153.3 H Total Protein Albumin Globulin Albumin/Globulin Ratio Blood Type Antibody Screen Crossmatch See Detail Home Medications: Medications to take at Discharge Amlodipine Besylate 5 mg PO DAILY 09/22/13 Furosemide 10 mg PO DAILY 09/22/13 Lisinopril 20 mg PO BID 09/22/13 Tiotropium [place] [Spiriva 18 MCG] 1 puff INHALATION DAILY 01/04/17 Nitroglycerin 0.4 mg SL Q5M PRN 02/17/17 Omeprazole [Prilosec] 20 mg PO BID 02/17/17 Fluticasone/Salmeterol [Advair 250/50 Mcg Diskus] 1 puff INHALATION BID 08/07/17 Metoprolol Tartrate 25 mg PO BID 08/07/17 Acetaminophen [Tylenol Extra Strength] 1,000 mg PO Q6H PRN PRN 12/20/17 Calcium Carbonate [Tums] 1,000 mg PO BIDCM 12/20/17 Cyclobenzaprine [Flexeril] 10 mg PO TID PRN PRN 12/20/17 Cyclobenzaprine [Flexeril] 10 mg PO TID PRN PRN 12/20/17 Primary Care Physician: Mitch Kurtz MD [Primary Care Provider] - Disposition: Acute care Hospital Minutes spent on discharge:: 32 Patient Condition:: Guarded Medical Necessity - Tobacco Use Smoking Status: Current every day smoker Tobacco Use: Cigarettes Meaningful Use Info Meaningful Use Diagnoses (Choose all that apply): None applicable Code Visit Inpatient E&M: 22824 Disch Hosp
== END 2017-12-21 15:40 | disposition short-term general hospital (02) | DRG 535 ==
LOC: ED 03:46 → MS3 05:33
PROVIDERS: Anesthesiology; Admitting Provider Hospitalist; Emergency Provider Emergency Medicine; Family Provider Family Medicine; PCP Family Medicine; Visit Provider Hospitalist
DX: S72.141A Displaced intertrochanteric fracture of right femur, initial encounter for closed fracture (principal); J96.21 Acute and chronic respiratory failure with hypoxia; E87.1 Hypo-osmolality and hyponatremia; I50.30 Unspecified diastolic (congestive) heart failure; W01.0XXA Fall on same level from slipping, tripping and stumbling without subsequent striking against object, initial encounter; Y92.039 Unspecified place in apartment as the place of occurrence of the external cause; E83.51 Hypocalcemia; Z23 Encounter for immunization; A08.4 Viral intestinal infection, unspecified; Z99.81 Dependence on supplemental oxygen; J44.9 Chronic obstructive pulmonary disease, unspecified; I11.0 Hypertensive heart disease with heart failure; E55.9 Vitamin D deficiency, unspecified; E83.42 Hypomagnesemia; F17.210 Nicotine dependence, cigarettes, uncomplicated; Z87.11 Personal history of peptic ulcer disease; K22.70 Barrett's esophagus without dysplasia; D64.9 Anemia, unspecified
CPT/HCPCS: 36415; 36600; 71045; 71275; 73502; 73560; 80048; 80053; 81001; 82040; 82306; 82330; 82803; 83735; 83880; 84100; 85025; 85610; 85730; 86850; 86900; 86920; 93005; 93306; 94640; 97802; 99284; J7030; J7040; J7050; P9016; Q9967; 90686; A4216; J0610; J1940; J2405; J7799